=== PATIENT | female | born 1960 | race Caucasian/White ===

== ENCOUNTER 2016-12-07 11:13 | Emergency (ER) | payer OTHER ==
[2016-12-07 11:29] VITALS: O2SAT 96
--- NOTE | 2016-12-07 11:52 | ERPHSYRPT ---
- History of Present Illness Time Seen by Provider: 12/07/16 11:47 Source: patient Exam Limitations: no limitations Patient Subjective Stated Complaint: fell and injured right thumb Triage Nursing Assessment: ambulated to room per self, skin w/d, color normal, resp easy. obvious deformity of right thumb. skin warm, good cap refill Physician History: fell and injured right thumb just prior to arrival Occurred: just prior to arrival Method of Injury: fell Extremities Pain Location: thumb: right Modifying Factors: Improves With: nothing Associated Symptoms: none Allergies/Adverse Reactions: armodafinil [From Nuvigil] Allergy (Verified 06/14/16 10:41) azithromycin [From Zithromax] Allergy (Verified 06/14/16 10:41) throat closed-HEART PALPITATIONS codeine [Codeine] Allergy (Verified 06/14/16 10:41) throat closes-HEART PALPITATIONS iodine Allergy (Verified 06/14/16 10:41) Hives latex Allergy (Verified 06/14/16 10:41) hives during exam metronidazole [From Flagyl] Allergy (Verified 06/14/16 10:41) sob throat closes anaphalactic Metronidazole HCl [From Flagyl] Allergy (Verified 06/14/16 10:41) HEART PALPITATIONS Penicillins Allergy (Verified 06/14/16 10:41) "I DON'T KNOW" ziprasidone HCl [From Geodon] Allergy (Verified 06/14/16 10:41) hallucinate/confusion ziprasidone mesylate [From Geodon] Allergy (Verified 06/14/16 10:41) HEART PALPITATIONS hydrocodone Adverse Reaction (Verified 01/09/15 19:22) Heart palpitations adhesive tape Allergy (Uncoded 01/09/15 19:23) Rash Home Medications: Albuterol Common Canister [Proventil Common Canister] 2 puff IH Q4HPRN PRN 12/31/15 [History] Atorvastatin Calcium [Lipitor 40Mg] 40 mg PO QPM 12/31/15 [History] Cholecalciferol (Vitamin D3) [Vitamin D3] 3 tab PO DAILY 12/31/15 [History] Clonazepam [Klonopin] 2 mg PO QPM 12/31/15 [History] Cyclobenzaprine HCl 10 mg [Cyclobenzaprine 10 MG] 10 mg PO BID 12/31/15 [ History] Dextroamphetamine/Amphetamine [Adderall Xr 30 mg] 30 mg PO QAM 12/31/15 [History ] Docusate Sodium 100 mg [Colace 100 MG] 100 mg PO BID 12/31/15 [History] Fluticasone/Salmeterol [Advair 250-50 Diskus] 1 puff IH BID 12/31/15 [History] Furosemide 40 mg [Lasix 40 MG] 40 mg PO DAILY 12/31/15 [History] Lamotrigine [Lamictal] 300 mg PO QPM 12/31/15 [History] Levothyroxine Sodium [Synthroid] 1 tab PO QAM 12/31/15 [History] Linaclotide [Linzess] 145 mcg PO DAILY PRN PRN 12/31/15 [History] Liraglutide [Victoza 2-Jass] 1.8 mg SQ DAILY 12/31/15 [History] Multivitamin/Iron/Folic Acid [Centrum Complete Multivit Tab] 1 each PO QAM [History] Nitroglycerin 0.4 mg Tablet [Nitrostat 0.4 MG Tablet] 0.4 mg SL Q5MIN PRN MR X 3 PRN 12/31/15 [History] Omeprazole 1 tab PO DAILY 12/31/15 [History] Potassium Chloride 20 Meq [Klor-Con 20 MEQ] 20 meq PO BID 12/31/15 [History] Tiotropium [place] Inhaler [Spiriva 18 Mcg/Cap Inhaler] 1 puff IH DAILY [History] Vilazodone Hydrochloride [Viibryd] 40 mg PO DAILY 12/31/15 [History] Metoprolol Succinate 25 mg PO 5XD 06/14/16 [History] Trazodone HCl 200 mg PO HS 06/14/16 [History] Hx Tetanus, Diphtheria Vaccination/Date Given: Yes (less than 5 years) Hx Influenza Vaccination/Date Given: Yes Hx Pneumococcal Vaccination/Date Given: Yes - Review of Systems Constitutional: No Symptoms Eyes: No Symptoms Ears, Nose, & Throat: No Symptoms Respiratory: No Symptoms Cardiac: No Symptoms Abdominal/Gastrointestinal: No Symptoms Musculoskeletal: Deformity (right thumb), Joint Swelling - Past Medical History Pertinent Past Medical History: Yes Neurological History: Migraines ENT History: Cataracts Cardiac History: No Pertinent History, Other Respiratory History: Asthma, COPD Endocrine Medical History: Hypothyroidism Musculoskeletal History: Arthritis GI Medical History: GI Bleed, Hemorrhoids History: No Pertinent History Psycho-Social History: Bipolar Female Reproductive Disorders: Endometriosis Other Medical History: Tachycardia - Past Surgical History Past Surgical History: Yes Neuro Surgical History: No Pertinent History Cardiac: No Pertinent History, Cardiac Catheterization Respiratory: No Pertinent History Gastrointestinal: Cholecystectomy Genitourinary: No Pertinent History Musculoskeletal: Other Female Surgical History: Section, Hysterectomy Other Surgical History: thyroidectomy. L knee scope. 2 BLADDER SURGERYS left knee replacement - Social History Smoking Status: Current every day smoker How long have you smoked: 15 Exposure to second hand smoke: No Alcohol Use: Socially Drug Use: none Patient Lives Alone: No Significant Family History: no pertinent family hx - Female History Hx Now: No - Nursing Vital Signs Nursing Vital Signs: Initial Vital Signs Temperature 98.2 F Temperature Source Oral Pulse Rate 63 Respiratory Rate 16 Blood Pressure [Right Arm] 125/54 Pain Intensity 8 - Physical Exam General Appearance: no apparent distress Hand Exam: deformity (right middle thumb), limited ROM, soft tissue tenderness SpO2: 96 Oxygen Delivery: Room Air Procedures - Joint Reduction Timeout: Performed Joint Reduction Site: Right, 1st digit Conscious Sedation: No Reduction Attempts: 1 Pre-Procedure Neurovascular Exam: neurovascular intact Post Procedure Neurovascular Exam: neurovascular intact, good alignment Post Joint Reduction Film: no fracture seen - Course Nursing assessment & vital signs reviewed: Yes - Radiology Exams Hand X-ray Interpretation: Reviewed by me, Subluxation (middle interphalangeal joints ) Wrist X-ray Interpretation: Reviewed by me (subluxation reduced to normal,) Ordered Tests: Active Orders 24 hr Category Date Time Status HAND (MINIMUM 3 VIEWS) Stat Exams 12/07/16 11:30 Taken - Progress Progress: improved Counseled pt/family regarding: diagnosis, need for follow-up, rad results - Departure Time of Disposition: 11:51 Departure Disposition: Home Clinical Impression: Subluxation of right thumb Qualifiers: Encounter type: initial encounter Qualified Code(s): S63.101A - Unspecified subluxation of right thumb, initial encounter Condition: Good Critical Care Time: No Referrals: CIARA,MARLIN T. [Primary Care Provider] - Instructions: Finger Dislocation Additional Instructions: Please follow the instructions given to you. Please take your medication as prescribed if given. If symptoms recur or get worse, come back to the emergency room if you cannot reach your primary care physician, or call your primary care physician for an appointment. Again if your symptoms get worse, come back to the emergency room. Thanks for visiting emergency room, and let us take care of you.
[2016-12-07 12:09] VITALS: BP 120/66; PULSE 68
--- NOTE | 2016-12-07 20:03 | XRAY ---
Indication: Thumb pain following fall. Comparison: None 3 views of the right hand demonstrates first MCP dislocation with soft tissue swelling. No other bony, articular, or soft tissue abnormalities.
--- NOTE | 2016-12-07 20:03 | XRAY ---
Indication: Post reduction. Comparison: Taken earlier in the day. Single frontal view of the right hand demonstrate successful first MCP reduction. No other bony, articular, or soft tissue abnormalities.
== END 2016-12-07 12:09 | disposition home or self-care (01) ==
LOC: ED 11:13
PROC: 0RSWXZZ Reposition Right Finger Phalangeal Joint, External Approach (ICD-10-PCS; principal; 2016-12-07)
DX: S63.101A Unspecified subluxation of right thumb, initial encounter (principal); W19.XXXA Unspecified fall, initial encounter
CPT/HCPCS: 26770; 73130; 73140; 99283; 99284; L3908

== ENCOUNTER 2017-10-04 08:07 | Observation (INO) | payer OTHER ==
[2017-10-04] MEDS ORDERED: Lasix 20 MG/2 ML IV ONE (08:42)
--- NOTE | 2017-10-04 08:50 | ERPHSYRPT ---
- History of Present Illness Time Seen by Provider: 10/04/17 08:45 Source: patient Exam Limitations: no limitations Patient Subjective Stated Complaint: Pt states for the last several days she has been swelling all over. She has also had a sharp pain in the right arm. She has an intermittent sharp pain in the left ear. She also states she has been falling more frequently. She also has not been urinating. Last time she urinated was yesterday and she only peed once. Pt states she doesnt feel like she is tracking right, and she has been extremely tired all the time - like she "can't keep my eyes open". Pt complaining of right sided abdominal pain and left terrazas pain. She states she has been around a lot of chemicals and black mold this week. Triage Nursing Assessment: Pt alert and oriented x3. skin pink warm and dry. afebrile. 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 no bruising noted to left terrazas. right side abdomen tender to touch Physician History: mild to mod swelling hands and feet for 4 days, hx chf, feels unsteady for the last week, frequent falling, pain left lower leg and right forearm, +dyspnea on exertion, no chest pain, pt refused pain med, hx smoking Allergies/Adverse Reactions: armodafinil [From Nuvigil] Allergy (Verified 06/14/16 10:41) azithromycin [From Zithromax] Allergy (Verified 06/14/16 10:41) throat closed-HEART PALPITATIONS latex Allergy (Verified 06/14/16 10:41) hives during exam metronidazole [From Flagyl] Allergy (Verified 06/14/16 10:41) sob throat closes anaphalactic Metronidazole HCl [From Flagyl] Allergy (Verified 06/14/16 10:41) HEART PALPITATIONS Penicillins Allergy (Verified 06/14/16 10:41) "I DON'T KNOW" ziprasidone HCl [From Geodon] Allergy (Verified 06/14/16 10:41) hallucinate/confusion ziprasidone mesylate [From Geodon] Allergy (Verified 06/14/16 10:41) HEART PALPITATIONS adhesive tape Allergy (Uncoded 01/09/15 19:23) Rash Home Medications: Atorvastatin Calcium [Lipitor 40Mg] 40 mg PO QPM 12/31/15 [History] Clonazepam [Klonopin] 2 mg PO QPM 12/31/15 [History] Docusate Sodium 100 mg [Colace 100 MG] 100 mg PO BID 12/31/15 [History] Fluticasone/Salmeterol [Advair 250-50 Diskus] 1 puff IH BID 12/31/15 [History] Lamotrigine [Lamictal] 300 mg PO QPM 12/31/15 [History] Levothyroxine Sodium [Synthroid] 1 tab PO QAM 12/31/15 [History] Multivitamin/Iron/Folic Acid [Centrum Complete Multivit Tab] 1 each PO QAM [History] Tiotropium [place] Inhaler [Spiriva 18 Mcg/Cap Inhaler] 1 puff IH DAILY [History] Vilazodone Hydrochloride [Viibryd] 40 mg PO DAILY 12/31/15 [History] Trazodone HCl 200 mg PO HS 06/14/16 [History] Aspirin EC 325 mg [Ecotrin 325 MG] 325 mg PO DAILY 10/04/17 [History] Dextroamphetamine/Amphetamine [Adderall 20 mg Tablet] 20 mg PO BID 10/04/17 [ History] Dulaglutide [Trulicity] 1.5 mg SQ WEEKLY 10/04/17 [History] Lisinopril 5 mg [Zestril 5 MG] 5 mg PO QAM 10/04/17 [History] Loratadine 10 mg [Claritin 10 mg] 10 mg PO QAM 10/04/17 [History] Prazosin HCl 5 mg PO QPM 10/04/17 [History] Ranitidine HCl 300 mg PO QPM 10/04/17 [History] Valacyclovir HCl [Valacyclovir] 2,000 mg PO UD 10/04/17 [History] Hx Tetanus, Diphtheria Vaccination/Date Given: Yes Hx Influenza Vaccination/Date Given: No Hx Pneumococcal Vaccination/Date Given: Yes - Review of Systems Constitutional: Fatigue, No Fever Eyes: No Symptoms Ears, Nose, & Throat: Ear Pain, No Ear Discharge, No Hearing Changes Respiratory: Dyspnea on Exertion (ROSEN), No Wheezing Cardiac: No Symptoms Abdominal/Gastrointestinal: Abdominal Pain, No Vomiting Genitourinary Symptoms: No Dysuria Musculoskeletal: Fall, No Back Pain, No Neck Pain, No Deformity, No Joint Redness Skin: No Rash Neurological: No Dizziness, No Focal Weakness, No Headache, No Speech Changes Psychological: No Symptoms - Past Medical History Pertinent Past Medical History: Yes Neurological History: Migraines ENT History: Cataracts Cardiac History: Congestive Heart Failure, Myocardial Infarction ([place]), Other Respiratory History: Asthma, COPD Endocrine Medical History: Hypothyroidism Musculoskeletal History: Arthritis GI Medical History: Hemorrhoids History: No Pertinent History Psycho-Social History: Bipolar Female Reproductive Disorders: Endometriosis Other Medical History: Tachycardia - Past Surgical History Past Surgical History: Yes Neuro Surgical History: No Pertinent History Cardiac: Cardiac Catheterization Respiratory: No Pertinent History Gastrointestinal: Cholecystectomy Genitourinary: No Pertinent History Musculoskeletal: Other Female Surgical History: Section, Hysterectomy Other Surgical History: thyroidectomy. L knee scope. 2 BLADDER SURGERYS left knee replacement - Social History Smoking Status: Current every day smoker How long have you smoked: 15 Exposure to second hand smoke: No Alcohol Use: Socially Drug Use: none Patient Lives Alone: Yes Significant Family History: no pertinent family hx - Female History Hx Now: No - Nursing Vital Signs Nursing Vital Signs: Initial Vital Signs Temperature 97.6 F 10/04/17 08:17 Pulse Rate 78 10/04/17 08:17 Respiratory Rate 16 10/04/17 08:17 Blood Pressure 134/72 10/04/17 08:17 O2 Sat by Pulse Oximetry 96 10/04/17 08:17 Pain Scale Pain Intensity 7 - Physical Exam General Appearance: no apparent distress Eye Exam: PERRL/EOMI Ears, Nose, Throat Exam: TMs normal, pharynx normal Neck Exam: normal inspection Respiratory Exam: lungs clear Cardiovascular Exam: regular rate/rhythm Gastrointestinal/Abdomen Exam: soft, tenderness, No distention, No rebound Back Exam: No vertebral tenderness Extremity Exam: pelvis stable, swelling, No deformities Neurologic Exam: alert, oriented x 3, cooperative, other (cn 3 to 10 grossly intact) Skin Exam: warm, dry SpO2 Interpretation: normal SpO2: 96 Oxygen Delivery: Room Air - Course Nursing assessment & vital signs reviewed: Yes EKG Interpreted by Me: Other (nsr 74, no stemi) - Radiology Exams Chest X-ray Interpretation: Interpreted by me, Other (no gross failure) Forearm X-ray Interpretation: Interpreted by me, No Fracture Lower Leg X-ray Interpretation: Interpreted by me, No Fracture - CT Exams Head CT Interpretation: Negative, Discussed w/radiologist Abdomen/Pelvis CT Interpretation: Negative, Discussed w/radiologist Ordered Tests: Active Orders 24 hr Category Date Time Status Clean Catch Urine Specimen STAT Care 10/04/17 12:06 Active EKG-ER Only STAT Care 10/04/17 08:40 Active IV Insertion STAT Care 10/04/17 08:40 Active Orthostatic Vital Signs STAT Care 10/04/17 10:48 Active ABDOMEN AND PELVIS W/0 CONTRAS [CT] Stat Exams 10/04/17 08:52 Taken CHEST 2 VIEWS (PA AND LAT) Stat Exams 10/04/17 08:40 Taken FOREARM Stat Exams 10/04/17 Taken HEAD WITHOUT CONTRAST [CT] Stat Exams 10/04/17 08:43 Taken LOWER LEG Stat Exams 10/04/17 Taken CBC W DIFF Stat Lab 10/04/17 09:00 Completed CK-Creatinine Phosphokinase Stat Lab 10/04/17 09:00 Completed CMP Stat Lab 10/04/17 09:00 Completed NT PRO BNP Stat Lab 10/04/17 09:00 Completed TROPONIN Q3H Lab 10/04/17 09:00 Completed TROPONIN Q3H Lab 10/04/17 11:35 Completed TROPONIN Q3H Lab 10/04/17 14:45 Ordered TROPONIN Q3H Lab 10/04/17 17:45 Ordered TROPONIN Q3H Lab 10/04/17 20:45 Ordered UA W/RFX UR CULTURE Stat Lab 10/04/17 09:15 Completed Urine Triage Profile Stat Lab 10/04/17 09:15 Completed Medication Summary Generic Name Dose Route Start Last Admin Trade Name Freq PRN Reason Stop Dose Admin Acetaminophen 1,000 mg 10/04/17 12:01 10/04/17 12:14 Tylenol Extra Strength 500 Mg PO 11/03/17 12:00 1,000 mg Q4H PRN PRN Administration HEADACHE Discontinued Medications Generic Name Dose Route Start Last Admin Trade Name Freq PRN Reason Stop Dose Admin Furosemide 20 mg 10/04/17 08:42 10/04/17 08:58 Lasix 20 Mg/2 Ml IV 10/04/17 08:43 Not Given DAILY ONE Furosemide 20 mg 10/04/17 08:57 10/04/17 09:01 Lasix 40 Mg/4 Ml IV 10/04/17 08:58 20 mg STAT ONE Administration Furosemide Confirm 10/04/17 08:56 Lasix 40 Mg/4 Ml Administered 10/04/17 08:57 Dose 40 mg .ROUTE .STK-MED ONE Sodium Chloride 500 mls @ 999 mls/hr 10/04/17 11:04 10/04/17 11:26 Sodium Chloride 0.9% 1000 Ml IV 10/04/17 11:34 999 mls/hr .Q31M STA Administration Sodium Chloride Confirm 10/04/17 11:23 Sodium Chloride 0.9% 1000 Ml Administered 10/04/17 11:24 Dose 1,000 mls @ ud .ROUTE .STK-MED ONE Potassium Chloride 20 meq 10/04/17 09:51 10/04/17 10:15 Klor Con 10 Meq PO 10/04/17 09:52 20 meq STAT ONE Administration Potassium Chloride Confirm 10/04/17 10:13 Klor Con 10 Meq Administered 10/04/17 10:14 Dose 20 meq PO .STK-MED ONE Lab/Rad Data: Laboratory Result Diagrams 10/04/17 09:00 10/04/17 09:00 Laboratory Results 10/04/17 10/04/17 10/04/17 Range/Units 11:35 09:15 09:15 WBC (4.0-10.5) K/mm3 RBC (4.1-5.4) M/mm3 Hgb (12.0-16.0) gm/dl Hct (35-47) % MCV (78-100) fl MCH (26-32) pg MCHC (32-36) g/dl RDW (11.5-14.0) % Plt Count (150-450) K/mm3 MPV (6-9.5) fl Gran % (36.0-66.0) % Lymphocytes % (24.0-44.0) % Monocytes % (0.0-12.0) % Eosinophils % (0.00-5.0) % Basophils % (0.0-0.4) % Basophils # (0-0.4) Sodium (136-145) mEq/L Potassium (3.5-5.1) mEq/L Chloride (98-107) mEq/L Carbon Dioxide (21-32) mEq/L Anion Gap (5-15) MEQ/L BUN (9-20) mg/dL Creatinine (0.55-1.30) mg/dl Estimated GFR ML/MIN Glucose (70-110) MG/DL Calcium (8.5-10.1) mg/dL Total Bilirubin (0.2-1.0) mg/dL AST (15-37) U/L ALT (12-78) U/L Alkaline Phosphatase (46-116) U/L Creatine Kinase (26-192) U/L Troponin I < 0.017 (0.000-0.056) ng/ml NT-Pro-B Natriuret Pep (0-125) pg/ml Serum Total Protein (6.4-8.2) gm/dL Albumin (3.4-5.0) g/dL Ur Collection Type VOID Urine Color YELLOW (YELLOW) Urine Appearance CLEAR (CLEAR) Urine pH 5.0 (5-6) Ur Specific [place] 1.010 (1.005-1.025) Urine Protein NEGATIVE (Negative) Urine Ketones NEGATIVE (NEGATIVE) Urine Blood NEGATIVE (0-5) Sung/ul Urine Nitrite NEGATIVE (NEGATIVE) Urine Bilirubin NEGATIVE (NEGATIVE) Urine Urobilinogen NORMAL (0-1) mg/dL Ur Leukocyte Esterase NEGATIVE (NEGATIVE) Urine Culture Reflexed NO (NO) Urine Glucose NEGATIVE (NEGATIVE) mg/dL Urine Opiates Level NEG. (NEGATIVE) Ur Methadone NEG. (NEGATIVE) Urine Barbiturates NEG. (NEGATIVE) Ur Phencyclidine (PCP) NEG. (NEGATIVE) Urine Amphetamine POS. (NEGATIVE) U Benzodiazepine Level NEG. (NEGATIVE) Urine Cocaine NEG. (NEGATIVE) Urine Marijuana (THC) NEG. (NEGATIVE) Specimen Received 10/04/1791410/04/17 10/04/17 10/04/17 Range/Units 09:00 09:00 09:00 WBC 6.0 (4.0-10.5) K/mm3 RBC 4.17 (4.1-5.4) M/mm3 Hgb 11.9 L (12.0-16.0) gm/dl Hct 37.6 (35-47) % MCV 90.2 (78-100) fl MCH 28.5 (26-32) pg MCHC 31.6 L (32-36) g/dl RDW 14.7 H (11.5-14.0) % Plt Count 204 (150-450) K/mm3 MPV 10.4 H (6-9.5) fl Gran % 45.8 (36.0-66.0) % Lymphocytes % 40.5 (24.0-44.0) % Monocytes % 10.8 (0.0-12.0) % Eosinophils % 2.2 (0.00-5.0) % Basophils % 0.7 (0.0-0.4) % Basophils # 0.04 (0-0.4) Sodium 144 (136-145) mEq/L Potassium 3.2 L (3.5-5.1) mEq/L Chloride 108 H (98-107) mEq/L Carbon Dioxide 24.2 (21-32) mEq/L Anion Gap 15.1 H (5-15) MEQ/L BUN 16 (9-20) mg/dL Creatinine 1.03 (0.55-1.30) mg/dl Estimated GFR 59 ML/MIN Glucose 115 H (70-110) MG/DL Calcium 8.4 L (8.5-10.1) mg/dL Total Bilirubin 0.20 (0.2-1.0) mg/dL AST 24 (15-37) U/L ALT 24 (12-78) U/L Alkaline Phosphatase 86 (46-116) U/L Creatine Kinase 154 (26-192) U/L Troponin I < 0.017 (0.000-0.056) ng/ml NT-Pro-B Natriuret Pep 238 H (0-125) pg/ml Serum Total Protein 6.4 (6.4-8.2) gm/dL Albumin 3.2 L (3.4-5.0) g/dL Ur Collection Type Urine Color (YELLOW) Urine Appearance (CLEAR) Urine pH (5-6) Ur Specific [place] (1.005-1.025) Urine Protein (Negative) Urine Ketones (NEGATIVE) Urine Blood (0-5) Sung/ul Urine Nitrite (NEGATIVE) Urine Bilirubin (NEGATIVE) Urine Urobilinogen (0-1) mg/dL Ur Leukocyte Esterase (NEGATIVE) Urine Culture Reflexed (NO) Urine Glucose (NEGATIVE) mg/dL Urine Opiates Level (NEGATIVE) Ur Methadone (NEGATIVE) Urine Barbiturates (NEGATIVE) Ur Phencyclidine (PCP) (NEGATIVE) Urine Amphetamine (NEGATIVE) U Benzodiazepine Level (NEGATIVE) Urine Cocaine (NEGATIVE) Urine Marijuana (THC) (NEGATIVE) Specimen Received - Progress Progress: improved Progress Note: 10/04/17 13:11 treatment and disposition d/w Dr Collier Discussed with : Nando Will see patient in: hospital (observation) Counseled pt/family regarding: lab results, diagnosis, rad results - Departure Time of Disposition: 13:10 Departure Disposition: Observation Clinical Impression: Hypokalemia, Unsteadiness CHF (congestive heart failure) Qualifiers: Congestive heart failure type: unspecified congestive heart failure type Congestive heart failure chronicity: acute on chronic Qualified Code(s): I50.9 - Heart failure, unspecified Condition: Stable Critical Care Time: No Referrals: MARLIN URBINA [Primary Care Provider] - Instructions: Heart Failure
[2017-10-04] MEDS ORDERED: Lasix 40 MG/4 ML ONE (08:56)
[2017-10-04] MEDS ORDERED: Lasix 40 MG/4 ML IV ONE (08:57)
[2017-10-04 09:08] LABS: BASOPHIL % 0.7 % (0.0-0.4); Eosinophil % 2.2 % (0.00-5.0); Granulocytes % 45.8 % (36.0-66.0); Lymphocytes % 40.5 % (24.0-44.0); Mean Cell Volume 90.2 fl (78-100); Mean Corpuscular Hemoglobin 28.5 pg (26-32); Mean Platelet Volume 10.4 fl (6-9.5); Monocytes % 10.8 % (0.0-12.0); Platelet Count 204 K/mm3 (150-450); Red Blood Count 4.17 M/mm3 (4.1-5.4); Red Cell Distribution Width 14.7 % (11.5-14.0)
[2017-10-04 09:21] LABS: ADD URINE CULTURE? NO (NO); Bilirubin NEGATIVE (NEGATIVE); Blood NEGATIVE Ery/ul (0-5); COMPLETE URINE MICROSCOPIC? NO; Collection Type VOID; Glucose NEGATIVE (NEGATIVE); Leukocyte Esterase NEGATIVE (NEGATIVE)
[2017-10-04 09:45] LABS: ALBUMIN 3.2 g/dL (3.4-5.0); ANION GAP 15.1 MEQ/L (5-15); BILIRUBIN,TOTAL 0.2 mg/dL (0.2-1.0); Carbon Dioxide 24.2 mEq/L (21-32); Potassium 3.2 mEq/L (3.5-5.1); Total Protein 6.4 gm/dL (6.4-8.2)
[2017-10-04] MEDS ORDERED: Klor Con 10 MEQ PO ONE ×2 (09:51→10:13)
[2017-10-04] MEDS ORDERED: Sodium Chloride 0.9% 1000 ML 1,000 ML ONE (11:23)
[2017-10-04] MEDS ORDERED: TYLENOL EXTRA STRENGTH 500 MG PO PRN (12:01)
[2017-10-04] MEDS ORDERED: TYLENOL EXTRA STRENGTH 500 MG ONE (12:11)
[2017-10-04 14:56] LABS: Potassium 3.5 mEq/L (3.5-5.1)
[2017-10-04 15:01] LABS: TROPONIN < 0.017 ng/ml (0.000-0.056)
[2017-10-04] MEDS ORDERED: NORCO 5/325 MG PO PRN (15:33)
--- NOTE | 2017-10-04 16:08 | PCM.HP ---
History of Present Illness - Chief Complaint Chief Complaint: hypokalemic, chr, unsteady gait History of Present Illness: is a 56 year old female pt of Dr. Cooper (sees Christa Davis) with hx CHF who came to ER due to 1 week of increased R hand pain, "the worse pain I've ever had." She describes it as burning pain, encompassing the entire hand. She spent time last week helping a friend with painting and cleaning. She has been casted for a significant portion of the past year due to injury of the hand and subsequent surgery by Dr. Gan. She just had an EMG on Thursday (2 d ago). In the ER she c/o generalized edema, had a mildly elevated BNP and was given lasix IV; the edema improved then she was hypotensive and orthostatic. She was given a small bolus of IV fluids and her BP improved but her R hand pain worsened. On ROS she admits to substernal chest pain, sharp, not related to activity, radiating to her back. She has had many musculoskeletal issues including a knee replacement (Dr. Kee). She has had frequent falls that she attributes to loss of balance due to knee issues. There have been more falls in the past 1 week. - Review of Systems Respiratory: Cough Cardiac: Chest Pain, Edema Abdominal/Gastrointestinal: Abdominal Pain (lower abdominal "bruised feeling"), Diarrhea, Constipation (chronic alternating diarrhea/constipation; has Linzesse to take prn) Musculoskeletal: Arthralgias, Joint Pain, Joint Swelling Psychological: No Anxiety, No Depression (does have hx bipolar), No Suicidal Ideations, No Homicidal Ideations All Other Systems: Reviewed and Negative Medications & Allergies Home Medications: Home Medication List Atorvastatin Calcium [Lipitor 40Mg] 40 mg PO QPM 12/31/15 [History Confirmed 01/16] Clonazepam [Klonopin] 2 mg PO QPM 12/31/15 [History Confirmed 10/04/17] Docusate Sodium 100 mg [Colace 100 MG] 200 mg PO BID 12/31/15 [History Confirmed 10/04/17] Fluticasone/Salmeterol [Advair 250-50 Diskus] 1 puff IH BID 12/31/15 [History Confirmed 10/04/17] Lamotrigine [Lamictal] 300 mg PO QPM 12/31/15 [History Confirmed 10/04/17] Levothyroxine Sodium [Synthroid] 1 tab PO QAM 12/31/15 [History Confirmed ] Multivitamin/Iron/Folic Acid [Centrum Complete Multivit Tab] 1 each PO QAM [History Confirmed 10/04/17] Tiotropium [place] Inhaler [Spiriva 18 Mcg/Cap Inhaler] 1 puff IH DAILY [History Confirmed 10/04/17] Vilazodone Hydrochloride [Viibryd] 40 mg PO DAILY 12/31/15 [History Confirmed ] Trazodone HCl 200 mg PO HS 06/14/16 [History Confirmed 10/04/17] Aspirin EC 325 mg [Ecotrin 325 MG] 325 mg PO DAILY 10/04/17 [History Confirmed 10/04/17] Dextroamphetamine/Amphetamine [Adderall 20 mg Tablet] 40 mg PO BID 10/04/17 [ History Confirmed 10/04/17] Dulaglutide [Trulicity] 1.5 mg SQ WEEKLY 10/04/17 [History Confirmed 10/04/17] Lisinopril 5 mg [Zestril 5 MG] 5 mg PO QAM 10/04/17 [History Confirmed 01/16] Loratadine 10 mg [Claritin 10 mg] 10 mg PO QAM 10/04/17 [History Confirmed 10/04/17] Prazosin HCl 5 mg PO QPM 10/04/17 [History Confirmed 10/04/17] Ranitidine HCl 300 mg PO QPM 10/04/17 [History Confirmed 10/04/17] Valacyclovir HCl [Valacyclovir] 2,000 mg PO UD 10/04/17 [History Confirmed 10/04] Allergies/Adverse Reactions: Allergies Allergy/AdvReac Type Severity Reaction Status Date / Time armodafinil [From Nuvigil] Allergy Verified 06/14/16 10:41 azithromycin [From Zithromax] Allergy throat Verified 06/14/16 10:41 closed-HEART PALPITATIONS latex Allergy hives Verified 06/14/16 10:41 during exam metronidazole [From Flagyl] Allergy sob throat Verified 06/14/16 10:41 closes anaphalactic Metronidazole HCl Allergy HEART Verified 06/14/16 10:41 [From Flagyl] PALPITATIONS Penicillins Allergy "I DON'T Verified 06/14/16 10:41 KNOW" ziprasidone HCl [From Geodon] Allergy hallucinate Verified 06/14/16 10:41 /confusion ziprasidone mesylate Allergy HEART Verified 06/14/16 10:41 [From Geodon] PALPITATIONS adhesive tape Allergy Rash Uncoded 01/09/15 19:23 - Past Medical History Past Medical History: Yes Neurological History: Migraines ENT History: Cataracts Cardiac History: Congestive Heart Failure, Myocardial Infarction (PA), Other Respiratory History: Asthma, COPD Endocrine Medical History: Hypothyroidism Musculoskelatal History: Arthritis GI Medical History: Hemorrhoids History: No Pertinent History Pyscho-Social History: Bipolar Reproductive Disorders: Endometriosis Comment: Tachycardia - Female History Are you now?: No - Past Surgical History Past Surgical History: Yes Neuro Surgical History: No Pertinent History Cardiac History: Cardiac Catheterization Respiratory Surgery: No Pertinent History GI Surgical History: Cholecystectomy Genitourinary Surgical Hx: No Pertinent History Musculskeletal Surgical Hx: Other Female Surgical History: Section, Hysterectomy Other Surgical History: thyroidectomy. L knee scope. 2 BLADDER SURGERYS left knee replacement - Social History Smoking Status: Current every day smoker How long have you smoked: 29 Exposure to second hand smoke: Yes Alcohol: None Drug Use: none Significant Family History: no pertinent family hx - Physical Exam Vital Signs: Vital Signs - 24 hr Temp Pulse Resp BP Pulse Ox 10/04/17 14:04 98.2 F 69 20 127/65 93 L 10/04/17 13:53 98.2 F 69 127/65 10/04/17 13:12 96 10/04/17 11:58 68 20 95/68 95 10/04/17 11:08 77 102/53 97 10/04/17 10:12 72 16 121/61 96 10/04/17 09:10 73 16 111/52 93 L 10/04/17 08:17 97.6 F 78 16 134/72 96 General Appearance: no apparent distress, alert Neurologic Exam: oriented x 3, cooperative Eye Exam: eyes nml inspection Neck Exam: normal inspection, non-tender, No lymphadenopathy Respiratory Exam: normal breath sounds, lungs clear, No crackles/rales, No rhonchi, No wheezing Cardiovascular Exam: regular rate/rhythm, normal heart sounds, No murmur Gastrointestinal/Abdomen Exam: soft, normal bowel sounds, No tenderness, No distention, No mass, No guarding, No rebound Back Exam: normal inspection, No CVA tenderness Extremity Exam: other (RUE with no appreciable edema. No erythema/lesions. radial pulse +. skin warm.) Skin Exam: normal color, warm, dry Results - Labs Lab/Micro Results: Lab Results-Last 24 Hours 10/04/17 Range/Units 14:31 Potassium 3.5 (3.5-5.1) mEq/L Troponin I < 0.017 (0.000-0.056) ng/ml - Other Procedures and Tests Respiratory Therapy 10/04/17 14:34 RT Screen per Nursing Assess ONCE Assessment/Plan (1) Hand pain, right Current Visit: Yes Status: Acute Assessment & Plan: This was her main reason for coming to the ER. Her preliminary result (verbal report) of the EMG is positive for nerve impingement. I will start her on some neurontin. Burt 5/325 prn. Try HCTZ if her bp will warrant it as any extra fluid appears to exacerbate her pain. Code(s): M79.641 - PAIN IN RIGHT HAND (2) Chest pain Current Visit: Yes Status: Acute Qualifiers: Chest pain type: unspecified Qualified Code(s): R07.9 - Chest pain, unspecified Assessment & Plan: will rule out PA. Pt sees Dr. hyman. Code(s): R07.9 - CHEST PAIN, UNSPECIFIED (3) Hypotension Current Visit: Yes Status: Acute Qualifiers: Hypotension type: orthostatic hypotension Qualified Code(s): I95.1 - Orthostatic hypotension Assessment & Plan: Could be a chronic issue with her frequent falls. Code(s): I95.9 - HYPOTENSION, UNSPECIFIED (4) CHF (congestive heart failure) Current Visit: Yes Status: Acute Qualifiers: Congestive heart failure type: unspecified congestive heart failure type Congestive heart failure chronicity: acute on chronic Qualified Code(s): I50.9 - Heart failure, unspecified Assessment & Plan: The BNP was not impressively elevated, just mild. She states her swelling is much better than it was on admission. Code(s): I50.9 - HEART FAILURE, UNSPECIFIED (5) Unsteadiness Current Visit: Yes Status: Acute Assessment & Plan: PT to evaluate in the morning. Code(s): R26.81 - UNSTEADINESS ON FEET
[2017-10-04] MEDS ORDERED: Colace 100 MG PO PRN (16:12)
[2017-10-04] MEDS ORDERED: VALACYCLOVIR HCL 2000 MG PO SCH (16:15)
[2017-10-04] MEDS ORDERED: Spiriva 18 Mcg/Cap Inhaler IH SCH (16:30)
[2017-10-04] MEDS ORDERED: MEDICATION INTERVENTION MC PRN ×2 (16:32→16:40)
[2017-10-04] MEDS ORDERED: PROVENTIL COMMON CANISTER IH PRN (16:37)
[2017-10-04] MEDS ORDERED: ZOVIRAX 200 MG PO PRN (16:37)
[2017-10-04] MEDS: Neurontin 100 MG PO SCH ×2 (16:58→21:38)
[2017-10-04] MEDS: SYNTHROID 100 MCG PO SCH (16:58)
[2017-10-04] MEDS ORDERED: Advair Hfa 115/21 Common canister IH SCH (19:00)
--- NOTE | 2017-10-04 19:22 | XRAY ---
Indication: Right abdominal pain. Indigestion. Frequent falls. Multiple contiguous axial images obtained through the abdomen and pelvis without contrast as ordered. Comparison: December 31, 2015. Lung bases clear. Noncontrasted stomach and bowel loops appear nonobstructed. Normal appendix. Again previous cholecystectomy and hysterectomy. No free fluid/air. Remaining liver, pancreas, spleen, adrenal glands, kidneys, ureters, bladder, and aorta appear unremarkable for noncontrast exam. Osseous structures intact. Impression: CT abdomen/pelvis without contrast exam is again negative. Comment: Preliminary interpretation was made by [facility]. No discrepancy. CTDI 23.69
--- NOTE | 2017-10-04 19:25 | XRAY ---
Indication: Patient feels disoriented. Headache. Frequent falls. Multiple contiguous axial images obtained through the head without contrast. Comparison: May 18, 2006. Normal appearing brain parenchyma, ventricles, and bony calvarium. Visualized paranasal sinuses and mastoid air cells are clear. Impression: Normal CT head without contrast exam. Comment: Preliminary interpretation was made by [facility]. No discrepancy. CTDI 50.75
--- NOTE | 2017-10-04 19:26 | XRAY ---
Indication: Frequent falls. Comparison: None 2 views of the left lower leg demonstrates total knee arthroplasty with intact articulation and prosthesis. No other bony, articular, or soft tissue abnormalities.
--- NOTE | 2017-10-04 19:26 | XRAY ---
Indication: Dyspnea. Comparison: November 06, 2014. PA/lateral chest demonstrates minimal right middle lobe fibrosis/scarring. Remaining heart and lungs normal. Bony thorax intact. No new/acute findings. Impression: Nonacute chest.
--- NOTE | 2017-10-04 19:36 | XRAY ---
Indication: Frequent falls. Comparison: None 2 views of the right forearm obtained. No bony, articular, or soft tissue abnormalities.
[2017-10-04] MEDS ORDERED: DESYREL 50 MG PO SCH (22:00)
[2017-10-04] MEDS ORDERED: ADVAIR 250-50 DISKUS 14 DOSE IH SCH (22:00)
[2017-10-04] MEDS ORDERED: Desyrel 150 MG PO SCH (22:00)
[2017-10-04] MEDS ORDERED: LIPITOR 40MG PO SCH (22:00)
[2017-10-04] MEDS ORDERED: lamICTAL 100MG TABLET PO SCH (22:00)
[2017-10-04] MEDS ORDERED: Pepcid 20 MG PO SCH (22:00)
[2017-10-04] MEDS ORDERED: PRAZOSIN HCL 5 MG PO SCH (22:00)
[2017-10-04] MEDS ORDERED: TRAZODONE HCL 200 MG PO SCH (22:00)
[2017-10-04] MEDS ORDERED: NON-FORMULARY ITEM (Ranitidine Hcl [Ranitidine Hcl] 300 MG) PO SCH (22:00)
[2017-10-04] MEDS ORDERED: KLONOPIN PO SCH (22:00)
[2017-10-05 06:26] LABS: Mean Platelet Volume 10.7 fl (6-9.5); Platelet Count 204 K/mm3 (150-450); Red Blood Count 4.13 M/mm3 (4.1-5.4); Red Cell Distribution Width 14.7 % (11.5-14.0); White Blood Count 5.9 K/mm3 (4.0-10.5)
[2017-10-05 06:49] LABS: ANION GAP 12.4 MEQ/L (5-15); BLOOD UREA NITROGEN 12 mg/dL (9-20); CHLORIDE 110 mEq/L (98-107); Carbon Dioxide 25.5 mEq/L (21-32); Glucose 104 MG/DL (70-110); Potassium 3.5 mEq/L (3.5-5.1); SODIUM 144 mEq/L (136-145)
--- NOTE | 2017-10-05 08:43 | PCM.DS ---
Discharge Summary Date of Admission: 10/04/17 13:51 Admitting Physician: MARLIN URBINA Primary Care Provider: MARLIN URBINA Allergies Allergies armodafinil [From Nuvigil] Allergy (Verified 06/14/16 10:41) azithromycin [From Zithromax] Allergy (Verified 06/14/16 10:41) throat closed-HEART PALPITATIONS latex Allergy (Verified 06/14/16 10:41) hives during exam metronidazole [From Flagyl] Allergy (Verified 06/14/16 10:41) sob throat closes anaphalactic Metronidazole HCl [From Flagyl] Allergy (Verified 06/14/16 10:41) HEART PALPITATIONS Penicillins Allergy (Verified 06/14/16 10:41) "I DON'T KNOW" ziprasidone HCl [From Geodon] Allergy (Verified 06/14/16 10:41) hallucinate/confusion ziprasidone mesylate [From Geodon] Allergy (Verified 06/14/16 10:41) HEART PALPITATIONS adhesive tape Allergy (Uncoded 01/09/15 19:23) Rash Hospital Summary - Hospital Course Hospital Course: Her hand is feeling better. She's unsure if it's the neurontin. Has some sore throat and cough this morning. Slept well overnight. Noticed if her elbow is bent her hand pain is much worse. No chest pain. Overnight pulse ox with 24.3% < 90% - she states she has narcolepsy and sees Dr. Crespo. - Vitals & Intake/Output Vital Signs: Vital Signs Temperature 97.7 F 10/05/17 06:54 Pulse Rate 62 10/05/17 06:54 Respiratory Rate 20 10/05/17 06:54 Blood Pressure 118/64 10/05/17 06:54 O2 Sat by Pulse Oximetry 95 10/05/17 06:54 Intake & Output: Intake & Output 10/02/17 10/03/17 10/04/17 10/05/17 11:59 11:59 11:59 11:59 Intake Total 1580 Balance 1580 Weight 100.335 kg - Lab Result Diagrams: 10/05/17 05:24 10/05/17 05:24 Lab Results-Last 24 Hrs: Lab Results-Last 24 Hours 10/04/17 10/04/17 10/04/17 Range/Units 14:31 18:11 21:01 WBC (4.0-10.5) K/mm3 RBC (4.1-5.4) M/mm3 Hgb (12.0-16.0) gm/dl Hct (35-47) % MCV (78-100) fl MCH (26-32) pg MCHC (32-36) g/dl RDW (11.5-14.0) % Plt Count (150-450) K/mm3 MPV (6-9.5) fl Sodium (136-145) mEq/L Potassium 3.5 (3.5-5.1) mEq/L Chloride (98-107) mEq/L Carbon Dioxide (21-32) mEq/L Anion Gap (5-15) MEQ/L BUN (9-20) mg/dL Creatinine (0.55-1.30) mg/dl Estimated GFR ML/MIN Glucose (70-110) MG/DL Calcium (8.5-10.1) mg/dL Troponin I < 0.017 < 0.017 < 0.017 (0.000-0.056) ng/ml NT-Pro-B Natriuret Pep (0-125) pg/ml 10/05/17 10/05/17 Range/Units 05:24 05:24 WBC 5.9 (4.0-10.5) K/mm3 RBC 4.13 (4.1-5.4) M/mm3 Hgb 11.6 L (12.0-16.0) gm/dl Hct 37.6 (35-47) % MCV 91.0 (78-100) fl MCH 28.0 (26-32) pg MCHC 30.9 L (32-36) g/dl RDW 14.7 H (11.5-14.0) % Plt Count 204 (150-450) K/mm3 MPV 10.7 H (6-9.5) fl Sodium 144 (136-145) mEq/L Potassium 3.5 (3.5-5.1) mEq/L Chloride 110 H (98-107) mEq/L Carbon Dioxide 25.5 (21-32) mEq/L Anion Gap 12.4 (5-15) MEQ/L BUN 12 (9-20) mg/dL Creatinine 0.92 (0.55-1.30) mg/dl Estimated GFR > 60 ML/MIN Glucose 104 (70-110) MG/DL Calcium 8.1 L (8.5-10.1) mg/dL Troponin I (0.000-0.056) ng/ml NT-Pro-B Natriuret Pep 493 H (0-125) pg/ml - Procedures and Test Procedures and Tests throughout Hospitalization: Therapy Orders & Screens 10/04/17 14:34 RT Screen per Nursing Assess ONCE Comment: Protocol Order Physician Instructions: Greater than 3 points order RT Admission Screen Reason For Exam: Triggered on Admission Diagnosis: hypokalemic, chr, unsteady gait Diagnosis: hypokalemic, chr, unsteady gait Pneumonia: No Home O2: No Asthma: Yes CHF: Yes Home CPAP/BIPAP: No Home Nebs/MDI: Yes Total Points: 12 Smoking Cessation Education ONCE Comment: Diagnosis: hypokalemic, chr, unsteady gait Smoking Status: Current every day smoker How long have you smoked: 29 Have you smoked in the past 12 months: No Approximately how many cigarettes per day: LESS THAN PACK ADAY Do you dip or chew tobacco: No If,Former Smoker,when did you quit: quit in 10/04/17 16:37 Respiratory MDI PRN Comment: Diagnosis: hypokalemic, chr, unsteady gait 10/04/17 16:39 Respiratory MDI BID Comment: Diagnosis: hypokalemic, chr, unsteady gait Discharge Exam General Appearance: no apparent distress, alert Neurologic Exam: oriented x 3, cooperative Skin Exam: normal color, warm, dry, No rash Ears, Nose, Throat Exam: pharynx normal, moist mucous membranes, No pharyngeal erythema, No tonsillar exudate Neck Exam: normal inspection, non-tender, No lymphadenopathy Respiratory Exam: normal breath sounds, crackles/rales (L lung base), No rhonchi , No wheezing Cardiovascular Exam: regular rate/rhythm, normal heart sounds, No murmur Extremity Exam: normal inspection Back Exam: normal inspection Final Diagnosis/Problem List - Final Discharge Diagnosis/Problem (1) Hand pain, right Current Visit: Yes Status: Acute Assessment & Plan: Will send home on neurontin 100mg po TID. Could certainly increase if it was helping her. She will f/u with Dr. Gan. Use positional methods to decrease pain as much as possible. (2) Chest pain Current Visit: Yes Status: Resolved Assessment & Plan: ID ruled out with negative troponins. 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 (3) Hypotension Current Visit: Yes Status: Resolved Assessment & Plan: resolved. (4) CHF (congestive heart failure) Current Visit: Yes Status: Chronic Assessment & Plan: will give po lasix here and she will go home on lasix; she thinks she has an rx at [facility] from Dr[facility] Gee. (5) Unsteadiness Current Visit: Yes Status: Chronic Assessment & Plan: Will have PT evaluate her; I think likley just related to orthopedic issues. - Discharge Disposition: Home, Self-Care Condition: Stable Prescriptions: New Gabapentin [Neurontin] 100 mg PO TID #30 capsule Continue Clonazepam [Klonopin] 2 mg PO QPM Atorvastatin Calcium [Lipitor 40Mg] 40 mg PO QPM Lamotrigine [Lamictal] 300 mg PO QPM Fluticasone/Salmeterol [Advair 250-50 Diskus] 1 puff IH BID Docusate Sodium 100 mg [Colace 100 MG] 200 mg PO BID Tiotropium [place] Inhaler [Spiriva 18 Mcg/Cap Inhaler] 1 puff IH DAILY Levothyroxine Sodium [Synthroid] 1 tab PO QAM Multivitamin/Iron/Folic Acid [Centrum Complete Multivit Tab] 1 each PO QAM Vilazodone Hydrochloride [Viibryd] 40 mg PO DAILY Trazodone HCl 200 mg PO HS Dulaglutide [Trulicity] 1.5 mg SQ WEEKLY Dextroamphetamine/Amphetamine [Adderall 20 mg Tablet] 40 mg PO BID Valacyclovir HCl [Valacyclovir] 2,000 mg PO UD Loratadine 10 mg [Claritin 10 mg] 10 mg PO QAM Lisinopril 5 mg [Zestril 5 MG] 5 mg PO QAM Ranitidine HCl 300 mg PO QPM Prazosin HCl 5 mg PO QPM Aspirin EC 325 mg [Ecotrin 325 MG] 325 mg PO DAILY Instructions: Heart Failure Follow up with: MARLIN URBINA [Primary Care Provider] -
[2017-10-05] MEDS ORDERED: CLARITIN 10 MG PO SCH (10:00)
[2017-10-05] MEDS ORDERED: ENOXAPARIN SODIUM SQ SCH (10:00)
[2017-10-05] MEDS ORDERED: Ecotrin 325 MG PO SCH (10:00)
[2017-10-05] MEDS ORDERED: NON-FORMULARY ITEM (Vilazodone Hydrochloride [Viibryd] 40 MG) PO SCH (10:00)
[2017-10-05] MEDS ORDERED: LASIX 20 MG PO SCH (10:00)
[2017-10-05] MEDS: Neurontin 100 MG PO SCH (10:00)
[2017-10-05] MEDS: SYNTHROID 100 MCG PO SCH (10:00)
[2017-10-05] MEDS ORDERED: FLUCELVAX QUAD 2017-2018 SYR IM ONE (10:00)
[2017-10-05] MEDS ORDERED: LEVOTHYROXINE SODIUM PO SCH (10:00)
[2017-10-05 11:00] VITALS: BP 119/68; PULSE 58; O2SAT 97
== END 2017-10-05 13:30 | disposition home or self-care (01) ==
LOC: ED 08:07 → MED SURG 13:51
PROVIDERS: ADMIT Family Medicine; ATTEND Family Medicine
DX: M79.641 Pain in right hand (principal); R07.9 Chest pain, unspecified; I95.1 Orthostatic hypotension; I50.9 Heart failure, unspecified; R29.6 Repeated falls; F31.9 Bipolar disorder, unspecified; E03.9 Hypothyroidism, unspecified; J44.9 Chronic obstructive pulmonary disease, unspecified; M19.90 Unspecified osteoarthritis, unspecified site; N80.9 Endometriosis, unspecified; R26.81 Unsteadiness on feet; Z79.899 Other long term (current) drug therapy; I25.2 Old myocardial infarction; Z72.0 Tobacco use
CPT/HCPCS: 36000; 36415; 70450; 71020; 73090; 73590; 74176; 80048; 80053; 80307; 81002; 82550; 83880; 84132; 84484; 85025; 85027; 93005; 93268; 94640; 94762; 96360; 96374; 99285; G0008; G0378; J1650; J1940; 90682; A9270-GY

== ENCOUNTER 2017-12-10 00:47 | Emergency (ER) | payer OTHER ==
[2017-12-10 01:13] VITALS: BP 137/82; PULSE 74; O2SAT 95
[2017-12-10] MEDS ORDERED: Compazine 10 MG/2 ML IV ONE (01:23)
[2017-12-10] MEDS ORDERED: BENADRYL 50 MG/ML IV ONE (01:23)
[2017-12-10] MEDS ORDERED: Sodium Chloride 0.9% 1000 ML 1,000 ML IV SCH (01:30)
[2017-12-10] MEDS ORDERED: Compazine 10 MG/2 ML ONE (01:31)
[2017-12-10] MEDS ORDERED: Sodium Chloride 0.9% 1000 ML 1,000 ML ONE (01:31)
[2017-12-10] MEDS ORDERED: BENADRYL 50 MG/ML ONE (01:31)
--- NOTE | 2017-12-10 01:32 | ERPHSYRPT ---
- History of Present Illness Time Seen by Provider: 12/10/17 01:20 Source: patient Patient Subjective Stated Complaint: began with headache yesterday. vomiting today Triage Nursing Assessment: headache, photosensitivity, nausea, vomiting [employer] per patient. Physician History: PATIENT WITH A HISTORY OF MIGRAINE HEADACHES, TYPE 2 DIABETES, HYPERTENSION, CONGESTIVE HEART FAILURE COMPLAINS OF HEADACHES FOR 2 DAYS ASSOCIATED WITH EMESIS X 6 EPISODES. HAS GENERALIZED HEADACHE, RATES PAIN SCALE 7/10 ASSOCIATED WITH PHOTOPHOBIA, DENIES SLURRED SPEECH, NUMBNESS TINGLING OR WEAKNESS IN EXTREMITIES. Timing/Duration: yesterday Quality: throbbing Head Pain Location: global Severity of Pain-Max: moderate Severity of Pain-Current: moderate Recent Head Trauma: chronic headaches Modifying Factors: Improves With: noise Associated Symptoms: sensitive to light Previous symptoms: same symptoms as today Allergies/Adverse Reactions: armodafinil [From Nuvigil] Allergy (Verified 06/14/16 10:41) azithromycin [From Zithromax] Allergy (Verified 06/14/16 10:41) throat closed-HEART PALPITATIONS latex Allergy (Verified 06/14/16 10:41) hives during exam metronidazole [From Flagyl] Allergy (Verified 06/14/16 10:41) sob throat closes anaphalactic Metronidazole HCl [From Flagyl] Allergy (Verified 06/14/16 10:41) HEART PALPITATIONS Penicillins Allergy (Verified 06/14/16 10:41) "I DON'T KNOW" ziprasidone HCl [From Geodon] Allergy (Verified 06/14/16 10:41) hallucinate/confusion ziprasidone mesylate [From Geodon] Allergy (Verified 06/14/16 10:41) HEART PALPITATIONS adhesive tape Allergy (Uncoded 01/09/15 19:23) Rash Home Medications: Atorvastatin Calcium [Lipitor 40Mg] 40 mg PO QPM 12/31/15 [History] Clonazepam [Klonopin] 2 mg PO QPM 12/31/15 [History] Docusate Sodium 100 mg [Colace 100 MG] 200 mg PO BID 12/31/15 [History] Fluticasone/Salmeterol [Advair 250-50 Diskus] 1 puff IH BID 12/31/15 [History] Lamotrigine [Lamictal] 300 mg PO QPM 12/31/15 [History] Levothyroxine Sodium [Synthroid] 1 tab PO QAM 12/31/15 [History] Multivitamin/Iron/Folic Acid [Centrum Complete Multivit Tab] 1 each PO QAM [History] Tiotropium [place] Inhaler [Spiriva 18 Mcg/Cap Inhaler] 1 puff IH DAILY [History] Vilazodone Hydrochloride [Viibryd] 40 mg PO DAILY 12/31/15 [History] Trazodone HCl 200 mg PO HS 06/14/16 [History] Aspirin EC 325 mg [Ecotrin 325 MG] 325 mg PO DAILY 10/04/17 [History] Dextroamphetamine/Amphetamine [Adderall 20 mg Tablet] 40 mg PO BID 10/04/17 [ History] Dulaglutide [Trulicity] 1.5 mg SQ WEEKLY 10/04/17 [History] Lisinopril 5 mg [Zestril 5 MG] 5 mg PO QAM 10/04/17 [History] Loratadine 10 mg [Claritin 10 mg] 10 mg PO QAM 10/04/17 [History] Prazosin HCl 5 mg PO QPM 10/04/17 [History] Ranitidine HCl 300 mg PO QPM 10/04/17 [History] Valacyclovir HCl [Valacyclovir] 2,000 mg PO UD 10/04/17 [History] Albuterol 2.5 mg/0.5 ml [PROVENTIL Solution 2.5 MG/0.5 ML] 12/10/17 [ History] Fluticasone/Vilanterol [Breo Ellipta 100-25 Mcg INH] 12/10/17 [History] Metformin HCl [Fortamet] 12/10/17 [History] Hx Tetanus, Diphtheria Vaccination/Date Given: Yes Hx Influenza Vaccination/Date Given: Yes Hx Pneumococcal Vaccination/Date Given: Yes Immunizations Up to Date: Yes - Review of Systems Constitutional: No Fever, No Chills Eyes: No Symptoms Ears, Nose, & Throat: No Symptoms Respiratory: No Symptoms, No Cough, No Dyspnea Cardiac: No Symptoms, No Chest Pain, No Edema, No Syncope Abdominal/Gastrointestinal: No Symptoms, No Abdominal Pain, No Nausea, No Vomiting, No Diarrhea Genitourinary Symptoms: No Symptoms, No Dysuria Musculoskeletal: No Symptoms, No Back Pain, No Neck Pain Skin: No Symptoms, No Rash Neurological: Headache, No Dizziness, No Focal Weakness, No Sensory Changes Psychological: No Symptoms Endocrine: No Symptoms All Other Systems: Reviewed and Negative - Past Medical History Pertinent Past Medical History: Yes Neurological History: Migraines ENT History: Cataracts Cardiac History: Congestive Heart Failure, Myocardial Infarction ([place]), Other Respiratory History: Asthma, COPD Endocrine Medical History: Hypothyroidism Musculoskeletal History: Arthritis GI Medical History: Hemorrhoids History: No Pertinent History Psycho-Social History: Bipolar Female Reproductive Disorders: Endometriosis Other Medical History: Tachycardia - Past Surgical History Past Surgical History: Yes Neuro Surgical History: No Pertinent History Cardiac: Cardiac Catheterization Respiratory: No Pertinent History Gastrointestinal: Cholecystectomy Genitourinary: No Pertinent History Musculoskeletal: Other Female Surgical History: Section, Hysterectomy Other Surgical History: thyroidectomy. L knee scope. 2 BLADDER SURGERYS left knee replacement - Social History Smoking Status: Current every day smoker How long have you smoked: 29 Exposure to second hand smoke: Yes Alcohol Use: Socially Drug Use: none Patient Lives Alone: Yes Significant Family History: no pertinent family hx - Female History Hx Now: No (partial hyst) - Nursing Vital Signs Nursing Vital Signs: Initial Vital Signs Temperature 97.5 F 12/10/17 01:10 Pulse Rate 74 12/10/17 01:10 Respiratory Rate 20 12/10/17 01:10 Blood Pressure 137/82 12/10/17 01:10 O2 Sat by Pulse Oximetry 95 12/10/17 01:10 Pain Scale Pain Intensity 5 - Physical Exam General Appearance: no apparent distress, mild distress Eye Exam: PERRL/EOMI Ears, Nose, Throat Exam: normal ENT inspection, moist mucous membranes Neck Exam: normal inspection, supple, full range of motion, No meningismus Respiratory Exam: normal breath sounds, lungs clear Cardiovascular Exam: regular rate/rhythm, normal heart sounds Gastrointestinal/Abdominal Exam: soft, normal bowel sounds, No tenderness, No distention Back Exam: normal inspection, normal range of motion Mental 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, oriented x 3, cooperative 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 specialist Exam: normal speech, PERRL, No facial droop Coordination/Gait Exam: normal cerebellar function Motor/Sensory Exam: no motor deficit, no sensory deficit DTR Exam: bicep (R): 2+, bicep (L): 2+, tricep (R): 2+, tricep (L): 2+, knee (R) : 2+, knee (L): 2+, ankle (R): 2+ Skin Exam: normal color, warm, dry, No rash SpO2: 95 Oxygen Delivery: Room Air Ordered Tests: Active Orders 24 hr Category Date Time Status BMP Stat Lab 12/10/17 01:45 Completed CBC W DIFF Stat Lab 12/10/17 01:45 Completed Medication Summary Generic Name Dose Route Start Last Admin Trade Name Freq PRN Reason Stop Dose Admin Sodium Chloride 1,000 mls @ 100 mls/hr 12/10/17 01:30 12/10/17 01:44 Sodium Chloride 0.9% 1000 Ml IV 01/09/18 01:29 100 mls/hr .Q10H URIEL Administration Discontinued Medications Generic Name Dose Route Start Last Admin Trade Name Freq PRN Reason Stop Dose Admin Diphenhydramine HCl 50 mg 12/10/17 01:23 12/10/17 01:44 Benadryl 50 Mg/Ml IV 12/10/17 01:24 50 mg STAT ONE Administration Diphenhydramine HCl Confirm 12/10/17 01:31 Benadryl 50 Mg/Ml Administered 12/10/17 01:32 Dose 50 mg .ROUTE .STK-MED ONE Prochlorperazine Edisylate 10 mg 12/10/17 01:23 12/10/17 01:44 Compazine 10 Mg/2 Ml IV 12/10/17 01:24 10 mg STAT ONE Administration Prochlorperazine Edisylate Confirm 12/10/17 01:31 Compazine 10 Mg/2 Ml Administered 12/10/17 01:32 Dose 10 mg .ROUTE .STK-MED ONE Lab/Rad Data: Laboratory Result Diagrams 12/10/17 01:45 12/10/17 01:45 Laboratory Results 12/10/17 12/10/17 Range/Units 01:45 01:45 WBC 7.9 (4.0-10.5) K/mm3 RBC 4.27 (4.1-5.4) M/mm3 Hgb 12.1 (12.0-16.0) gm/dl Hct 37.6 (35-47) % MCV 88.1 (78-100) fl MCH 28.3 (26-32) pg MCHC 32.2 (32-36) g/dl RDW 13.8 (11.5-14.0) % Plt Count 243 (150-450) K/mm3 MPV 10.5 H (6-9.5) fl Gran % 59.7 (36.0-66.0) % Lymphocytes % 29.7 (24.0-44.0) % Monocytes % 8.4 (0.0-12.0) % Eosinophils % 1.7 (0.00-5.0) % Basophils % 0.5 (0.0-0.4) % Basophils # 0.04 (0-0.4) Sodium 144 (136-145) mEq/L Potassium 3.2 L (3.5-5.1) mEq/L Chloride 107 (98-107) mEq/L Carbon Dioxide 27.4 (21-32) mEq/L Anion Gap 12.4 (5-15) MEQ/L BUN 11 (9-20) mg/dL Creatinine 0.84 (0.55-1.30) mg/dl Estimated GFR > 60 ML/MIN Glucose 92 (70-110) MG/DL Calcium 8.7 (8.5-10.1) mg/dL - Progress Progress: improved, re-examined Progress Note: 12/10/17 01:31 ADMINISTERED IV NORMAL SALINE 100ML/HR, BENADRYL 50MG, COMPAZINE 10MG IV Counseled pt/family regarding: lab results, diagnosis, need for follow-up - Departure Time of Disposition: 02:40 Departure Disposition: Home Clinical Impression: MIGRAINE CEPHALGIA Condition: Stable Critical Care Time: No Referrals: MARLIN URBINA [Primary Care Provider] - Additional Instructions: CONITINUE ALL CURRENT MEDICATIONS. COMPAZINE 5MG EVERY 6 HOURS NEEDED FOR NAUSEA. CONSULT YOUR PRIMARY CARE PROVIDER FOR EVALUATON. Prescriptions: Prochlorperazine Maleate 5 mg* [Compazine 5 MG] 5 mg PO Q6HPRN PRN #12 tablet PRN Reason: Nausea
[2017-12-10 01:59] LABS: BASOPHIL % 0.5 % (0.0-0.4); Basophil (Absolute #) 0.04 (0-0.4); Eosinophil % 1.7 % (0.00-5.0); Eosinophil (Absolute #) 0.13 (0-0.5); Granulocytes % 59.7 % (36.0-66.0); Hematocrit 37.6 % (35-47); Hemoglobin 12.1 gm/dl (12.0-16.0); Lymphocyte (Absolute #) 2.34 (1.0-4.6); Lymphocytes % 29.7 % (24.0-44.0); Mean Cell Volume 88.1 fl (78-100); Mean Corpuscular Hemoglobin 28.3 pg (26-32); Mean Corpuscular Hgb Concent. 32.2 g/dl (32-36); Mean Platelet Volume 10.5 fl (6-9.5); Monocyte (Absolute #) 0.66 (0.0-1.3); Monocytes % 8.4 % (0.0-12.0); Platelet Count 243 K/mm3 (150-450); Red Blood Count 4.27 M/mm3 (4.1-5.4); Red Cell Distribution Width 13.8 % (11.5-14.0); White Blood Count 7.9 K/mm3 (4.0-10.5)
[2017-12-10 02:14] LABS: ANION GAP 12.4 MEQ/L (5-15); BLOOD UREA NITROGEN 11 mg/dL (9-20); CHLORIDE 107 mEq/L (98-107); Calcium 8.7 mg/dL (8.5-10.1); Carbon Dioxide 27.4 mEq/L (21-32); Creatinine 1 0.84 mg/dl (0.55-1.30); EST GLOMERULAR FILTRATION RATE > 60 ML/MIN; Glucose 92 MG/DL (70-110); Potassium 3.2 mEq/L (3.5-5.1); SODIUM 144 mEq/L (136-145)
== END 2017-12-10 03:17 | disposition home or self-care (01) ==
LOC: ED 00:47
DX: G43.909 Migraine, unspecified, not intractable, without status migrainosus (principal); I50.9 Heart failure, unspecified; E03.9 Hypothyroidism, unspecified; J45.909 Unspecified asthma, uncomplicated; F31.9 Bipolar disorder, unspecified; E11.9 Type 2 diabetes mellitus without complications; I10 Essential (primary) hypertension; N80.9 Endometriosis, unspecified; Z72.0 Tobacco use; Z79.899 Other long term (current) drug therapy
CPT/HCPCS: 36000; 36415; 80048; 85025; 96360; 99283; J1200

== ENCOUNTER 2018-02-17 15:15 | Observation (INO) | payer OTHER ==
[2018-02-17] MEDS ORDERED: NovoLIN R SQ PRN (16:17)
[2018-02-17 16:48] LABS: BASOPHIL % 0.5 % (0.0-0.4); Basophil (Absolute #) 0.05 (0-0.4); Eosinophil (Absolute #) 0.11 (0-0.5); Granulocyte Absolute (ANC) 7.37 (1.4-6.9); Granulocytes % 67.6 % (36.0-66.0); Hematocrit 44.3 % (35-47); Hemoglobin 14.3 gm/dl (12.0-16.0); Lymphocyte (Absolute #) 2.48 (1.0-4.6); Lymphocytes % 22.7 % (24.0-44.0); Mean Corpuscular Hemoglobin 28.7 pg (26-32); Mean Corpuscular Hgb Concent. 32.3 g/dl (32-36); Mean Platelet Volume 10.7 fl (6-9.5); Monocytes % 8.2 % (0.0-12.0); Platelet Count 270 K/mm3 (150-450); Red Blood Count 4.98 M/mm3 (4.1-5.4); Red Cell Distribution Width 14.1 % (11.5-14.0); White Blood Count 10.9 K/mm3 (4.0-10.5)
[2018-02-17] MEDS: Lactated Ringers 1,000 ML IV SCH ×3 (16:55→19:37)
[2018-02-17 17:08] LABS: ALBUMIN 4.5 g/dL (3.5-5.0); BLOOD UREA NITROGEN 12 mg/dL (7-17); CHLORIDE 104 mmol/L (98-107); Calcium 9.5 mg/dL (8.4-10.2); Carbon Dioxide 26 mmol/L (22-30); Creatinine 1 0.81 mg/dL (0.52-1.04); Glucose 93 mg/dL (74-106); Potassium 3.6 mmol/L (3.5-5.1); SGOT/AST 17 U/L (14-36); SGPT/ALT 18 U/L (0-35); SODIUM 142 mmol/L (137-145); Total Protein 7.6 g/dL (6.3-8.2)
[2018-02-17 17:09] LABS: ALKALINE PHOSPHATASE 104 U/L (38-126); AMYLASE 76 U/L (30-110); ANION GAP 15.5 MEQ/L (5-15); LIPASE 75 U/L (23-300)
[2018-02-17] MEDS ORDERED: MEDICATION INTERVENTION PO SCH (17:30)
[2018-02-17] MEDS ORDERED: TYLENOL 325 MG PO PRN (19:30)
[2018-02-17] MEDS ORDERED: TRAZODONE HCL 200 MG PO SCH (22:00)
[2018-02-17] MEDS ORDERED: Pepcid 20 MG PO SCH (22:00)
[2018-02-17] MEDS ORDERED: KLONOPIN PO SCH (22:00)
[2018-02-17] MEDS ORDERED: ZOCOR 20MG PO SCH (22:00)
[2018-02-17] MEDS ORDERED: DESYREL 50 MG PO SCH (22:00)
[2018-02-17] MEDS ORDERED: PRAZOSIN HCL 5 MG PO SCH (22:00)
[2018-02-17] MEDS ORDERED: LIPITOR 40MG PO SCH (22:00)
[2018-02-17] MEDS ORDERED: CLONAZEPAM 2 MG PO SCH (22:00)
[2018-02-17] MEDS ORDERED: NON-FORMULARY ITEM (Ranitidine Hcl [Ranitidine Hcl] 300 MG) PO SCH (22:00)
[2018-02-17 22:09] LABS: Appearance SLIGHTLY CLOUDY (CLEAR); Bilirubin NEGATIVE (NEGATIVE); Blood TRACE NON-HEM Ery/ul (0-5); Glucose NEGATIVE (NEGATIVE); Ketones NEGATIVE (NEGATIVE); Leukocyte Esterase 1+ (NEGATIVE); Nitrite NEGATIVE (NEGATIVE); Protein,Urine Dip TRACE (Negative); Urobilinogen NORMAL mg/dL (0-1)
[2018-02-17 22:13] LABS: Bacteria RARE /HPF (NEGATIVE); Epithelial Cells FEW /HPF (FEW); WBC 25-50 /HPF (0-5)
[2018-02-17] MEDS: Zofran 4 MG/2 ML VIAL IV PRN (22:55)
[2018-02-18] MEDS: Lactated Ringers 1,000 ML IV SCH (03:31)
[2018-02-18 04:02] LABS: 027 TOX PROD PRESUMPTIVE NEGATIVE (NEGATIVE); TOXIGENIC C. DIFF ORG NEGATIVE (NEGATIVE)
[2018-02-18 04:57] VITALS: O2SAT 95
[2018-02-18] MEDS: Zofran 4 MG/2 ML VIAL IV PRN (05:19)
[2018-02-18 06:02] LABS: Hematocrit 38.7 % (35-47); Hemoglobin 12.3 gm/dl (12.0-16.0); Mean Cell Volume 90.8 fl (78-100); Mean Corpuscular Hemoglobin 28.9 pg (26-32); Mean Corpuscular Hgb Concent. 31.8 g/dl (32-36); Mean Platelet Volume 10.6 fl (6-9.5); Platelet Count 230 K/mm3 (150-450); Red Blood Count 4.26 M/mm3 (4.1-5.4); Red Cell Distribution Width 13.8 % (11.5-14.0); White Blood Count 7.7 K/mm3 (4.0-10.5)
[2018-02-18 06:03] LABS: BLOOD UREA NITROGEN 9 mg/dL (7-17); CHLORIDE 108 mmol/L (98-107); Calcium 8.5 mg/dL (8.4-10.2); Carbon Dioxide 26 mmol/L (22-30); Creatinine 1 0.66 mg/dL (0.52-1.04); Glucose 86 mg/dL (74-106); Potassium 3.7 mmol/L (3.5-5.1); SODIUM 141 mmol/L (137-145)
[2018-02-18 08:10] VITALS: PULSE 60
--- NOTE | 2018-02-18 08:11 | PCM.HP ---
History of Present Illness - Chief Complaint Chief Complaint: Nausea, vomiting, dehydration Date: 02/18/18 History of Present Illness: is a 57 year old female. she has had chronic problem with nausea vomiting and diarrhea and has been having this much worse recently over the last several weeks and presented to her [employer] yesterday with Christie and felt to weak and dehydrated to safely go home. She reports vomiting too many times to count having constant runny diarrhea for several days and not able to eat anything. Denies vomiting blood or black or bloody stools. She was hydrated overnight and labs were unremarkable and stool testing is pending. She reports vomiting all night and diarrhea every hour since 1 am however she never asked nurse for antiemetic and had no witnessed vomiting or diarrhea. She is ambulatory in the room and is in the last room on the partida and takes herself to the bathroom for each event. She does report feeling much better after the fluids but still having the diarrhea and cramping diffuse pains in the abdomen - Review of Systems Constitutional: Fever, Chills, Fatigue Eyes: No Symptoms Ears, Nose, & Throat: No Symptoms Respiratory: No Cough, No Short Of Breath Cardiac: No Chest Pain, No Edema, No Syncope Abdominal/Gastrointestinal: Abdominal Pain, Nausea, Vomiting, Diarrhea, No Hematemesis, No Hematochezia, No Melena Genitourinary Symptoms: No Dysuria Musculoskeletal: Back Pain, No Neck Pain Skin: No Rash Neurological: Dizziness, No Focal Weakness, No Sensory Changes Psychological: No Symptoms Endocrine: No Symptoms Hematologic/Lymphatic: No Symptoms Immunological/Allergic: No Symptoms Medications & Allergies Home Medications: Home Medication List Atorvastatin Calcium 40 mg PO HS 02/17/18 [History Confirmed 02/17/18] Fluticasone/Vilanterol [Breo Ellipta 100-25 Mcg INH] 2 each IH DAILY 02/17/18 [ History Confirmed 02/17/18] Levothyroxine Sodium [Synthroid] 200 mg PO DAILY 02/17/18 [History Confirmed ] Lisinopril 5 mg [Zestril 5 MG] 5 mg PO DAILY 02/17/18 [History Confirmed 02/17/18] Prazosin HCl 5 mg PO HS 02/17/18 [History Confirmed 02/17/18] Prochlorperazine Maleate 5 mg PO Q6H PRN 02/17/18 [History Confirmed 02/17/18] Tiotropium [place] [Spiriva Respimat] 2.5 mcg IH DAILY 02/17/18 [History Confirmed 02/17/18] Trazodone HCl [Desyrel] 200 mg PO HS 02/17/18 [History Confirmed 02/17/18] Vilazodone Hydrochloride [Viibryd] 40 mg PO DAILY 02/17/18 [History Confirmed ] clonazePAM [Clonazepam] 2 mg PO HS 02/17/18 [History Confirmed 02/17/18] lamoTRIgine [Lamictal] 300 mg PO DAILY 02/17/18 [History Confirmed 02/17/18] raNITIdine HCl [Ranitidine HCl] 300 mg PO HS 02/17/18 [History Confirmed ] Allergies/Adverse Reactions: Allergies Allergy/AdvReac Type Severity Reaction Status Date / Time armodafinil [From Nuvigil] Allergy Verified 06/14/16 10:41 azithromycin [From Zithromax] Allergy throat Verified 06/14/16 10:41 closed-HEART PALPITATIONS latex Allergy hives Verified 06/14/16 10:41 during exam metronidazole [From Flagyl] Allergy sob throat Verified 06/14/16 10:41 closes anaphalactic Metronidazole HCl Allergy HEART Verified 06/14/16 10:41 [From Flagyl] PALPITATIONS Penicillins Allergy "I DON'T Verified 06/14/16 10:41 KNOW" ziprasidone HCl [From Geodon] Allergy hallucinate Verified 06/14/16 10:41 /confusion ziprasidone mesylate Allergy HEART Verified 06/14/16 10:41 [From Geodon] PALPITATIONS adhesive tape Allergy Rash Uncoded 01/09/15 19:23 - Past Medical History Past Medical History: Yes Neurological History: Migraines ENT History: Cataracts Cardiac History: Congestive Heart Failure, Myocardial Infarction ([place]), Other Respiratory History: Asthma, COPD Endocrine Medical History: Hypothyroidism Musculoskelatal History: Arthritis GI Medical History: Hemorrhoids History: No Pertinent History Pyscho-Social History: Bipolar Reproductive Disorders: Endometriosis Comment: Tachycardia - Female History Are you now?: No - Past Surgical History Past Surgical History: Yes Neuro Surgical History: No Pertinent History Cardiac History: Cardiac Catheterization Respiratory Surgery: No Pertinent History GI Surgical History: Cholecystectomy Genitourinary Surgical Hx: No Pertinent History Musculskeletal Surgical Hx: Other Female Surgical History: Section, Hysterectomy Other Surgical History: thyroidectomy. L knee scope. 2 BLADDER SURGERYS left knee replacement - Social History Smoking Status: Current every day smoker How long have you smoked: 23 Exposure to second hand smoke: Yes Alcohol: None Drug Use: none Significant Family History: no pertinent family hx - Physical Exam Vital Signs: Vital Signs - 24 hr Temp Pulse Resp BP BP Pulse Ox 02/18/18 08:06 60 16 95 02/18/18 04:10 97.8 F 69 18 126/57 95 02/18/18 00:08 98.4 F 67 18 124/61 92 L 02/17/18 20:12 64 16 94 L 02/17/18 20:07 98.5 F 70 16 124/61 94 L 02/17/18 17:30 84 18 95 02/17/18 16:01 98.1 F 111 H 132/71 02/17/18 15:57 98.1 F 111 H 18 132/71 95 02/17/18 15:41 98.1 F 111 H 18 132/71 95 General Appearance: no apparent distress, alert, obese Neurologic Exam: alert, oriented x 3, cooperative, normal mood/affect, nml cerebellar function, nml station & gait, sensation nml, No motor deficits Eye Exam: PERRL/EOMI, eyes nml inspection Ears, Nose, Throat Exam: normal ENT inspection, TMs normal, pharynx normal, moist mucous membranes Neck Exam: normal inspection, non-tender, supple, full range of motion Respiratory Exam: normal breath sounds, lungs clear, No respiratory distress Cardiovascular Exam: regular rate/rhythm, normal heart sounds, normal peripheral pulses Gastrointestinal/Abdomen Exam: soft, normal bowel sounds, No tenderness, No mass Back Exam: normal inspection, normal range of motion, No CVA tenderness, No vertebral tenderness Extremity Exam: normal inspection, normal range of motion, pelvis stable Skin Exam: normal color, warm, dry, No rash Lymphatic Exam: No adenopathy Results - Labs Lab/Micro Results: Accuchecks Date 02/17/18 Date 02/17/18 Time 22:00 Time 16:30 Accucheck Value: 85 Accucheck Value: 103 Lab Results-Last 24 Hours 02/17/18 02/17/18 02/17/18 Range/Units 16:43 16:43 16:43 WBC 10.9 H (4.0-10.5) K/mm3 RBC 4.98 (4.1-5.4) M/mm3 Hgb 14.3 (12.0-16.0) gm/dl Hct 44.3 (35-47) % MCV 89.0 (78-100) fl MCH 28.7 (26-32) pg MCHC 32.3 (32-36) g/dl RDW 14.1 H (11.5-14.0) % Plt Count 270 (150-450) K/mm3 MPV 10.7 H (6-9.5) fl Gran % 67.6 H (36.0-66.0) % Eos # (Auto) 0.11 (0-0.5) Absolute Lymphs (auto) 2.48 (1.0-4.6) Absolute Monos (auto) 0.90 (0.0-1.3) Lymphocytes % 22.7 L (24.0-44.0) % Monocytes % 8.2 (0.0-12.0) % Eosinophils % 1.0 (0.00-5.0) % Basophils % 0.5 (0.0-0.4) % Absolute Granulocytes 7.37 H (1.4-6.9) Basophils # 0.05 (0-0.4) Sodium 142 (137-145) mmol/L Potassium 3.6 (3.5-5.1) mmol/L Chloride 104 (98-107) mmol/L Carbon Dioxide 26 (22-30) mmol/L Anion Gap 15.5 H (5-15) MEQ/L BUN 12 (7-17) mg/dL Creatinine 0.81 (0.52-1.04) mg/dL Estimated GFR > 60.0 ML/MIN Glucose 93 (74-106) mg/dL Hemoglobin A1c 5.23 (4.5-6.0) % Lactic Acid (0.4-2.0) Calcium 9.5 (8.4-10.2) mg/dL Magnesium 1.9 (1.6-2.3) mg/dL Total Bilirubin 0.20 (0.2-1.3) mg/dL AST 17 (14-36) U/L ALT 18 (0-35) U/L Alkaline Phosphatase 104 (38-126) U/L Serum Total Protein 7.6 (6.3-8.2) g/dL Albumin 4.5 (3.5-5.0) g/dL Amylase 76 (30-110) U/L Lipase 75 (23-300) U/L TSH 3rd Generation (0.47-4.68) mIU/L Ur Collection Type Urine Color (YELLOW) Urine Appearance (CLEAR) Urine pH (5-6) Ur Specific [place] (1.005-1.025) Urine Protein (Negative) Urine Ketones (NEGATIVE) Urine Blood (0-5) Sung/ul Urine Nitrite (NEGATIVE) Urine Bilirubin (NEGATIVE) Urine Urobilinogen (0-1) mg/dL Ur Leukocyte Esterase (NEGATIVE) Urine Microscopic RBC (0-2) /HPF Urine Microscopic WBC (0-5) /HPF Ur Epithelial Cells (FEW) /HPF Urine Bacteria (NEGATIVE) /HPF Urine Glucose (NEGATIVE) mg/dL Stl C. diff Tox B Gene (NEGATIVE) C.difficile 027-NAP1-B1 (NEGATIVE) Specimen Received 02/17/18 02/17/18 02/18/18 Range/Units 23:14 Unknown 05:20 WBC 7.7 (4.0-10.5) K/mm3 RBC 4.26 (4.1-5.4) M/mm3 Hgb 12.3 (12.0-16.0) gm/dl Hct 38.7 (35-47) % MCV 90.8 (78-100) fl MCH 28.9 (26-32) pg MCHC 31.8 L (32-36) g/dl RDW 13.8 (11.5-14.0) % Plt Count 230 (150-450) K/mm3 MPV 10.6 H (6-9.5) fl Gran % (36.0-66.0) % Eos # (Auto) (0-0.5) Absolute Lymphs (auto) (1.0-4.6) Absolute Monos (auto) (0.0-1.3) Lymphocytes % (24.0-44.0) % Monocytes % (0.0-12.0) % Eosinophils % (0.00-5.0) % Basophils % (0.0-0.4) % Absolute Granulocytes (1.4-6.9) Basophils # (0-0.4) Sodium (137-145) mmol/L Potassium (3.5-5.1) mmol/L Chloride (98-107) mmol/L Carbon Dioxide (22-30) mmol/L Anion Gap (5-15) MEQ/L BUN (7-17) mg/dL Creatinine (0.52-1.04) mg/dL Estimated GFR ML/MIN Glucose (74-106) mg/dL Hemoglobin A1c (4.5-6.0) % Lactic Acid (0.4-2.0) Calcium (8.4-10.2) mg/dL Magnesium (1.6-2.3) mg/dL Total Bilirubin (0.2-1.3) mg/dL AST (14-36) U/L ALT (0-35) U/L Alkaline Phosphatase (38-126) U/L Serum Total Protein (6.3-8.2) g/dL Albumin (3.5-5.0) g/dL Amylase (30-110) U/L Lipase (23-300) U/L TSH 3rd Generation (0.47-4.68) mIU/L Ur Collection Type CCMS Urine Color YELLOW (YELLOW) Urine Appearance SLIGHTLY CLOUDY (CLEAR) Urine pH 5.0 (5-6) Ur Specific [place] 1.020 (1.005-1.025) Urine Protein TRACE (Negative) Urine Ketones NEGATIVE (NEGATIVE) Urine Blood TRACE NON-HEM (0-5) Sung/ul Urine Nitrite NEGATIVE (NEGATIVE) Urine Bilirubin NEGATIVE (NEGATIVE) Urine Urobilinogen NORMAL (0-1) mg/dL Ur Leukocyte Esterase 1+ (NEGATIVE) Urine Microscopic RBC 5-10 (0-2) /HPF Urine Microscopic WBC 25-50 (0-5) /HPF Ur Epithelial Cells FEW (FEW) /HPF Urine Bacteria RARE (NEGATIVE) /HPF Urine Glucose NEGATIVE (NEGATIVE) mg/dL Stl C. diff Tox B Gene NEGATIVE (NEGATIVE) C.difficile 027-NAP1-B1 PRESUMPTIVE NEGATIVE (NEGATIVE) Specimen Received 02-17-18 2200 02/18/18 02/18/18 Range/Units 05:20 05:27 WBC (4.0-10.5) K/mm3 RBC (4.1-5.4) M/mm3 Hgb (12.0-16.0) gm/dl Hct (35-47) % MCV (78-100) fl MCH (26-32) pg MCHC (32-36) g/dl RDW (11.5-14.0) % Plt Count (150-450) K/mm3 MPV (6-9.5) fl Gran % (36.0-66.0) % Eos # (Auto) (0-0.5) Absolute Lymphs (auto) (1.0-4.6) Absolute Monos (auto) (0.0-1.3) Lymphocytes % (24.0-44.0) % Monocytes % (0.0-12.0) % Eosinophils % (0.00-5.0) % Basophils % (0.0-0.4) % Absolute Granulocytes (1.4-6.9) Basophils # (0-0.4) Sodium 141 (137-145) mmol/L Potassium 3.7 (3.5-5.1) mmol/L Chloride 108 H (98-107) mmol/L Carbon Dioxide 26 (22-30) mmol/L Anion Gap 11.0 (5-15) MEQ/L BUN 9 (7-17) mg/dL Creatinine 0.66 (0.52-1.04) mg/dL Estimated GFR > 60.0 ML/MIN Glucose 86 (74-106) mg/dL Hemoglobin A1c (4.5-6.0) % Lactic Acid 0.9 (0.4-2.0) Calcium 8.5 (8.4-10.2) mg/dL Magnesium (1.6-2.3) mg/dL Total Bilirubin (0.2-1.3) mg/dL AST (14-36) U/L ALT (0-35) U/L Alkaline Phosphatase (38-126) U/L Serum Total Protein (6.3-8.2) g/dL Albumin (3.5-5.0) g/dL Amylase (30-110) U/L Lipase (23-300) U/L TSH 3rd Generation 0.790 (0.47-4.68) mIU/L Ur Collection Type Urine Color (YELLOW) Urine Appearance (CLEAR) Urine pH (5-6) Ur Specific [place] (1.005-1.025) Urine Protein (Negative) Urine Ketones (NEGATIVE) Urine Blood (0-5) Sung/ul Urine Nitrite (NEGATIVE) Urine Bilirubin (NEGATIVE) Urine Urobilinogen (0-1) mg/dL Ur Leukocyte Esterase (NEGATIVE) Urine Microscopic RBC (0-2) /HPF Urine Microscopic WBC (0-5) /HPF Ur Epithelial Cells (FEW) /HPF Urine Bacteria (NEGATIVE) /HPF Urine Glucose (NEGATIVE) mg/dL Stl C. diff Tox B Gene (NEGATIVE) C.difficile 027-NAP1-B1 (NEGATIVE) Specimen Received Accuchecks Date 02/17/18 Date 02/17/18 Time 22:00 Time 16:30 Accucheck Value: 85 Accucheck Value: 103 - Other Procedures and Tests Respiratory Therapy 02/18/18 07:00 Respiratory MDI UD Respiratory MDI UD Assessment/Plan (1) Vomiting Status: Acute Assessment & Plan: discussed would recommend stopping her trulicity and metformin on discharge as these can exacerbate her GI upset and she was using these mostly for weight loss she states. Her last A1c was in the 5% range She has no focal findings [facility] at [facility] time stool studies pending has appointment already scheduled with GI for follow up of the chronic gi complaints feels safe going home today will d/c home with instructions to stop the trulicity and the metformin. Code(s): R11.10 - VOMITING, UNSPECIFIED (2) Diarrhea Status: Acute Code(s): R19.7 - DIARRHEA, UNSPECIFIED
--- NOTE | 2018-02-18 08:34 | PCM.DCORD ---
- Discharge Discharge Date: 02/18/18 Disposition: Home, Self-Care Condition: Stable Prescriptions: Continue raNITIdine HCl [Ranitidine HCl] 300 mg PO HS Vilazodone Hydrochloride [Viibryd] 40 mg PO DAILY Lisinopril 5 mg [Zestril 5 MG] 5 mg PO DAILY Trazodone HCl [Desyrel] 200 mg PO HS Prochlorperazine Maleate 5 mg PO Q6H PRN PRN Reason: Nausea lamoTRIgine [Lamictal] 300 mg PO DAILY Prazosin HCl 5 mg PO HS clonazePAM [Clonazepam] 2 mg PO HS Levothyroxine Sodium [Synthroid] 200 mg PO DAILY Atorvastatin Calcium 40 mg PO HS Fluticasone/Vilanterol [Breo Ellipta 100-25 Mcg INH] 2 each IH DAILY Tiotropium [place] [Spiriva Respimat] 2.5 mcg IH DAILY Discontinued Metformin HCl 500 mg [Glucophage 500 MG] 500 mg PO BIDWM Follow up with: MARLIN URBINA [Primary Care Provider] - 1 Week
[2018-02-18 08:40] VITALS: BP 116/55
[2018-02-18] MEDS ORDERED: Spiriva 18 Mcg/Cap Inhaler IH SCH (10:00)
[2018-02-18] MEDS ORDERED: LEVOTHYROXINE SODIUM 200 MG PO SCH (10:00)
[2018-02-18] MEDS ORDERED: SYNTHROID 100 MCG PO SCH (10:00)
[2018-02-18] MEDS ORDERED: lamICTAL 100MG TABLET PO SCH (10:00)
[2018-02-18] MEDS ORDERED: FLUTICASONE IH SCH (10:00)
[2018-02-18] MEDS ORDERED: TIOTROPIUM BROMIDE 2.5 MCG IH SCH (10:00)
[2018-02-18] MEDS ORDERED: NON-FORMULARY ITEM (Vilazodone Hydrochloride [Viibryd] 40 MG) PO SCH (10:00)
[2018-02-18] MEDS ORDERED: VILANTEROL IH SCH (10:00)
[2018-02-18] MEDS ORDERED: PATIENT OWN MEDICATION IH SCH ×2 (10:00)
[2018-02-19 12:33] LABS: Source: Feces
== END 2018-02-18 09:20 | disposition home or self-care (01) ==
LOC: MED SURG 15:40
PROVIDERS: ADMIT Family Medicine; ATTEND Family Medicine
DX: E86.0 Dehydration (principal)
CPT/HCPCS: 36415; 80048; 80053; 81000; 82150; 82962; 83036; 83605; 83690; 83735; 84443; 85025; 85027; 87045; 87046; 87177; 87209; 87335; 87493; 94640; 94760; G0378; J2405; A9270-GY

== ENCOUNTER 2018-03-07 18:57 | Emergency (ER) | payer OTHER ==
--- NOTE | 2018-03-07 19:37 | ERPHSYRPT ---
- History of Present Illness Time Seen by Provider: 03/07/18 19:32 Historian: patient, family Exam Limitations: no limitations Patient Subjective Stated Complaint: was IP here 3 weeks ago for diarrhea.. has not improved since.. has f/u with specialist on . states bloating and stool that is mucous. vomit is green and bitter tasting like "shit". upper abdomen discomfort. Triage Nursing Assessment: no obvious distress. abdomen distended and feels bloated. upper abdomen discomfort with n/v/d x weeks. states everythihg she eats she has diarrhea approx 30 minutes after eating. + BSx4. states has had buring with urinating but has never had a UTI. denies fever. Physician History: The patient is a 57-year-old female with her complaining of chronic diarrhea with intermittent vomiting for several months. She was admitted for one day in this hospital on February 17 and discharged on February 18 for the same. She was hydrated overnight during hospitalization and sent home. Since being discharged from the hospital she's had numerous loose stools that she claims are watery every day. She's had intermittent episodes of vomiting. She'll have a period of good days followed by one day of vomiting. Today she went to a restaurant this morning and had eggs and sausage and gravy. She then within 20 minutes had watery diarrhea. She vomited 3 or 4 times a day. She has an appointment with a GI specialist on . She has generalized abdominal pain that has been the same over the past few months. Today she states her vomitus is green in color. Her past medical history is significant for hypertension, hypothyroidism, high cholesterol, GERD, COPD, and gastroenteritis. Her past surgical history is significant for , bladder lift, cholecystectomy, and thyroidectomy. Timing/Duration: other (several months) Activities at Onset: none Quality: aching Abdominal Pain Onset Location: generalized abdomen Pain Radiation: no radiation Severity of Pain-Max: mild Severity of Pain-Current: mild Modifying Factors: Improves With: nothing Associated Symptoms: diarrhea, nausea, vomiting Previous symptoms: same symptoms as today Allergies/Adverse Reactions: armodafinil [From Nuvigil] Allergy (Verified 03/07/18 19:15) azithromycin [From Zithromax] Allergy (Verified 03/07/18 19:15) throat closed-HEART PALPITATIONS latex Allergy (Verified 03/07/18 19:15) hives during exam metronidazole [From Flagyl] Allergy (Verified 03/07/18 19:15) sob throat closes anaphalactic Metronidazole HCl [From Flagyl] Allergy (Verified 03/07/18 19:15) HEART PALPITATIONS Penicillins Allergy (Verified 03/07/18 19:15) "I DON'T KNOW" ziprasidone HCl [From Geodon] Allergy (Verified 03/07/18 19:15) hallucinate/confusion ziprasidone mesylate [From Geodon] Allergy (Verified 03/07/18 19:15) HEART PALPITATIONS adhesive tape Allergy (Uncoded 03/07/18 19:15) Rash Home Medications: Atorvastatin Calcium 40 mg PO HS 02/17/18 [History] Fluticasone/Vilanterol [Breo Ellipta 100-25 Mcg INH] 2 each IH DAILY 02/17/18 [ History] Levothyroxine Sodium [Synthroid] 200 mg PO DAILY 02/17/18 [History] Lisinopril 5 mg [Zestril 5 MG] 5 mg PO DAILY 02/17/18 [History] Prazosin HCl 5 mg PO HS 02/17/18 [History] Prochlorperazine Maleate 5 mg PO Q6H PRN 02/17/18 [History] Tiotropium [place] [Spiriva Respimat] 2.5 mcg IH DAILY 02/17/18 [History] Trazodone HCl [Desyrel] 200 mg PO HS 02/17/18 [History] Vilazodone Hydrochloride [Viibryd] 40 mg PO DAILY 02/17/18 [History] clonazePAM [Clonazepam] 2 mg PO HS 02/17/18 [History] lamoTRIgine [Lamictal] 300 mg PO DAILY 02/17/18 [History] raNITIdine HCl [Ranitidine HCl] 300 mg PO HS 02/17/18 [History] Hx Tetanus, Diphtheria Vaccination/Date Given: Yes Hx Influenza Vaccination/Date Given: Yes Hx Pneumococcal Vaccination/Date Given: Yes Immunizations Up to Date: Yes - Review of Systems Constitutional: No Fever, No Chills Eyes: No Symptoms Ears, Nose, & Throat: No Symptoms Respiratory: No Cough, No Dyspnea Cardiac: No Chest Pain, No Edema, No Syncope Abdominal/Gastrointestinal: Abdominal Pain, Nausea, Vomiting, Diarrhea Genitourinary Symptoms: Dysuria Musculoskeletal: No Back Pain, No Neck Pain Skin: No Rash Neurological: No Dizziness, No Focal Weakness, No Sensory Changes Psychological: No Symptoms Endocrine: No Symptoms Hematologic/Lymphatic: No Symptoms Immunological/Allergic: No Symptoms All Other Systems: Reviewed and Negative - Past Medical History Pertinent Past Medical History: Yes Neurological History: Migraines ENT History: Cataracts Cardiac History: Congestive Heart Failure, Myocardial Infarction ([place]), Other Respiratory History: Asthma, COPD Endocrine Medical History: Hypothyroidism Musculoskeletal History: Arthritis GI Medical History: Hemorrhoids History: No Pertinent History Psycho-Social History: Bipolar Female Reproductive Disorders: Endometriosis Other Medical History: Tachycardia - Past Surgical History Past Surgical History: Yes Neuro Surgical History: No Pertinent History Cardiac: Cardiac Catheterization Respiratory: No Pertinent History Gastrointestinal: Cholecystectomy Genitourinary: No Pertinent History Musculoskeletal: Other Female Surgical History: Section, Hysterectomy Other Surgical History: thyroidectomy. L knee scope. 2 BLADDER SURGERYS left knee replacement - Social History Smoking Status: Never smoker How long have you smoked: 23 Exposure to second hand smoke: No Alcohol Use: Socially Drug Use: none Patient Lives Alone: No Significant Family History: no pertinent family hx - Female History Hx Now: No - Nursing Vital Signs Nursing Vital Signs: Initial Vital Signs Temperature 99.3 F 03/07/18 19:16 Pulse Rate 86 03/07/18 19:16 Respiratory Rate 16 03/07/18 19:16 Blood Pressure 120/69 03/07/18 19:16 O2 Sat by Pulse Oximetry 98 03/07/18 19:16 Pain Scale Pain Intensity 4 - Physical Exam General Appearance: no apparent distress, alert Eye Exam: PERRL/EOMI, eyes nml inspection Ears, Nose, Throat Exam: normal ENT inspection, pharynx normal, moist mucous membranes, No dry mucous membranes Neck Exam: normal inspection, non-tender, supple, full range of motion Respiratory Exam: normal breath sounds, lungs clear, No respiratory distress Cardiovascular Exam: regular rate/rhythm, normal heart sounds Gastrointestinal/Abdomen Exam: soft, tenderness (generalized), No mass, No guarding, No rebound Pelvic Exam: not done Rectal Exam: not done Back Exam: normal inspection, normal range of motion, No CVA tenderness, No vertebral tenderness Extremity Exam: normal inspection, normal range of motion, pelvis stable Neurologic Exam: alert, oriented x 3, cooperative, normal mood/affect, nml cerebellar function, sensation nml, No motor deficits Skin Exam: normal color, warm, dry SpO2 Interpretation: normal SpO2: 98 Oxygen Delivery: Room Air - CT Exams Abdomen/Pelvis CT Interpretation: Negative, Tele-radiologist Report (per Dr Guardado ), No appendicitis Ordered Tests: Active Orders 24 hr Category Date Time Status IV Insertion STAT Care 03/07/18 19:39 Active ABDOMEN AND PELVIS W/0 CONTRAS [CT] Stat Exams 03/07/18 19:40 Taken CBC W DIFF Stat Lab 03/07/18 19:44 Completed CMP Stat Lab 03/07/18 19:44 Completed CULTURE,URINE Stat Lab 03/07/18 19:44 Received LIPASE Stat Lab 03/07/18 19:44 Completed Lactic Acid Stat Lab 03/07/18 19:50 Results UA W/ MICROSCOPIC Stat Lab 03/07/18 19:44 Completed Urine Triage Profile Stat Lab 03/07/18 19:44 Completed Medication Summary Discontinued Medications Generic Name Dose Route Start Last Admin Trade Name Freq PRN Reason Stop Dose Admin Sodium Chloride 1,000 mls @ 999 mls/hr 03/07/18 19:39 03/07/18 19:49 Sodium Chloride 0.9% 1000 Ml IV 03/07/18 20:39 999 mls/hr .Q1H1M STA Administration Sodium Chloride Confirm 03/07/18 19:45 Sodium Chloride 0.9% 1000 Ml Administered 03/07/18 19:46 Dose 1,000 mls @ ud .ROUTE .STK-MED ONE Ondansetron HCl 4 mg 03/07/18 19:39 03/07/18 19:48 Zofran 4 Mg/2 Ml Vial IV 03/07/18 19:40 4 mg STAT ONE Administration Ondansetron HCl Confirm 03/07/18 19:45 Zofran 4 Mg/2 Ml Vial Administered 03/07/18 19:46 Dose 4 mg .ROUTE .STK-MED ONE Lab/Rad Data: Laboratory Result Diagrams 03/07/18 19:44 03/07/18 19:44 Laboratory Results 03/07/18 03/07/18 03/07/18 Range/Units 19:50 19:44 19:44 WBC (4.0-10.5) K/mm3 RBC (4.1-5.4) M/mm3 Hgb (12.0-16.0) gm/dl Hct (35-47) % MCV (78-100) fl MCH (26-32) pg MCHC (32-36) g/dl RDW (11.5-14.0) % Plt Count (150-450) K/mm3 MPV (6-9.5) fl Gran % (36.0-66.0) % Eos # (Auto) (0-0.5) Absolute Lymphs (auto) (1.0-4.6) Absolute Monos (auto) (0.0-1.3) Lymphocytes % (24.0-44.0) % Monocytes % (0.0-12.0) % Eosinophils % (0.00-5.0) % Basophils % (0.0-0.4) % Absolute Granulocytes (1.4-6.9) Basophils # (0-0.4) Sodium (137-145) mmol/L Potassium (3.5-5.1) mmol/L Chloride (98-107) mmol/L Carbon Dioxide (22-30) mmol/L Anion Gap (5-15) MEQ/L BUN (7-17) mg/dL Creatinine (0.52-1.04) mg/dL Estimated GFR ML/MIN Glucose (74-106) mg/dL Lactic Acid 1.9 (0.4-2.0) Calcium (8.4-10.2) mg/dL Total Bilirubin (0.2-1.3) mg/dL AST (14-36) U/L ALT (0-35) U/L Alkaline Phosphatase (38-126) U/L Serum Total Protein (6.3-8.2) g/dL Albumin (3.5-5.0) g/dL Lipase (23-300) U/L Ur Collection Type VOID Urine Color YELLOW (YELLOW) Urine Appearance CLEAR (CLEAR) Urine pH 5.0 (5-6) Ur Specific [place] 1.010 (1.005-1.025) Urine Protein NEGATIVE (Negative) Urine Ketones NEGATIVE (NEGATIVE) Urine Blood NEGATIVE (0-5) Sung/ul Urine Nitrite NEGATIVE (NEGATIVE) Urine Bilirubin NEGATIVE (NEGATIVE) Urine Urobilinogen NORMAL (0-1) mg/dL Ur Leukocyte Esterase 1+ (NEGATIVE) Urine Microscopic RBC 2-5 (0-2) /HPF Urine Microscopic WBC 15-25 (0-5) /HPF Ur Epithelial Cells FEW (FEW) /HPF Urine Bacteria FEW (NEGATIVE) /HPF Urine Culture Reflexed YES (NO) Urine Glucose NEGATIVE (NEGATIVE) mg/dL Urine Opiates Level NEGATIVE (NEGATIVE) Ur Methadone NEGATIVE (NEGATIVE) Urine Barbiturates NEGATIVE (NEGATIVE) Ur Phencyclidine (PCP) NEGATIVE (NEGATIVE) Urine Amphetamine POSITIVE (NEGATIVE) U Benzodiazepine Level NEGATIVE (NEGATIVE) Urine Cocaine NEGATIVE (NEGATIVE) Urine Marijuana (THC) NEGATIVE (NEGATIVE) Specimen Received 03/07/18194403/07/18 03/07/18 Range/Units 19:44 19:44 WBC 7.9 (4.0-10.5) K/mm3 RBC 4.35 (4.1-5.4) M/mm3 Hgb 12.5 (12.0-16.0) gm/dl Hct 39.0 (35-47) % MCV 89.7 (78-100) fl MCH 28.7 (26-32) pg MCHC 32.1 (32-36) g/dl RDW 14.0 (11.5-14.0) % Plt Count 244 (150-450) K/mm3 MPV 10.6 H (6-9.5) fl Gran % 55.5 (36.0-66.0) % Eos # (Auto) 0.20 (0-0.5) Absolute Lymphs (auto) 2.67 (1.0-4.6) Absolute Monos (auto) 0.60 (0.0-1.3) Lymphocytes % 33.8 (24.0-44.0) % Monocytes % 7.6 (0.0-12.0) % Eosinophils % 2.5 (0.00-5.0) % Basophils % 0.6 (0.0-0.4) % Absolute Granulocytes 4.37 (1.4-6.9) Basophils # 0.05 (0-0.4) Sodium 144 (137-145) mmol/L Potassium 3.8 (3.5-5.1) mmol/L Chloride 107 (98-107) mmol/L Carbon Dioxide 28 (22-30) mmol/L Anion Gap 12.9 (5-15) MEQ/L BUN 13 (7-17) mg/dL Creatinine 0.62 (0.52-1.04) mg/dL Estimated GFR > 60.0 ML/MIN Glucose 116 H (74-106) mg/dL Lactic Acid (0.4-2.0) Calcium 9.2 (8.4-10.2) mg/dL Total Bilirubin < 0.10 L (0.2-1.3) mg/dL AST 14 (14-36) U/L ALT 17 (0-35) U/L Alkaline Phosphatase 95 (38-126) U/L Serum Total Protein 6.4 (6.3-8.2) g/dL Albumin 3.7 (3.5-5.0) g/dL Lipase 111 (23-300) U/L Ur Collection Type Urine Color (YELLOW) Urine Appearance (CLEAR) Urine pH (5-6) Ur Specific [place] (1.005-1.025) Urine Protein (Negative) Urine Ketones (NEGATIVE) Urine Blood (0-5) Sung/ul Urine Nitrite (NEGATIVE) Urine Bilirubin (NEGATIVE) Urine Urobilinogen (0-1) mg/dL Ur Leukocyte Esterase (NEGATIVE) Urine Microscopic RBC (0-2) /HPF Urine Microscopic WBC (0-5) /HPF Ur Epithelial Cells (FEW) /HPF Urine Bacteria (NEGATIVE) /HPF Urine Culture Reflexed (NO) Urine Glucose (NEGATIVE) mg/dL Urine Opiates Level (NEGATIVE) Ur Methadone (NEGATIVE) Urine Barbiturates (NEGATIVE) Ur Phencyclidine (PCP) (NEGATIVE) Urine Amphetamine (NEGATIVE) U Benzodiazepine Level (NEGATIVE) Urine Cocaine (NEGATIVE) Urine Marijuana (THC) (NEGATIVE) Specimen Received - Progress Progress: improved Counseled pt/family regarding: lab results, diagnosis, need for follow-up, rad results - Departure Time of Disposition: 21:36 Departure Disposition: Home Clinical Impression: Gastroenteritis, UTI (urinary tract infection) Condition: Stable Critical Care Time: No Referrals: MARLIN URBINA [Primary Care Provider] - Additional Instructions: You have gastroenteritis. You were given fluids and Zofran by IV in the ER. You also have mild UTI. You were given nitrofurantoin 100 mg orally. Take Macrobid 100 mg 2 times a day for one week. Take Zofran 4 mg ODT every 6 hours as needed for nausea. Follow-up on with your GI specialist as previously scheduled. Prescriptions: Ondansetron ODT 4 MG [Zofran Odt 4 mg] 1 tab PO Q6H PRN PRN #10 tab.rapdis PRN Reason: Nausea/Vomiting Nitrofurantoin Monohyd/M-Cryst [Macrobid 100 mg Capsule] 100 mg PO BID #14 capsule
[2018-03-07] MEDS ORDERED: Zofran 4 MG/2 ML VIAL IV ONE (19:39)
[2018-03-07] MEDS ORDERED: Sodium Chloride 0.9% 1000 ML 1,000 ML IV STA (19:39)
[2018-03-07] MEDS ORDERED: Sodium Chloride 0.9% 1000 ML 1,000 ML ONE (19:45)
[2018-03-07] MEDS ORDERED: Zofran 4 MG/2 ML VIAL ONE (19:45)
[2018-03-07 19:48] LABS: BASOPHIL % 0.6 % (0.0-0.4); Basophil (Absolute #) 0.05 (0-0.4); Eosinophil % 2.5 % (0.00-5.0); Granulocyte Absolute (ANC) 4.37 (1.4-6.9); Granulocytes % 55.5 % (36.0-66.0); Hemoglobin 12.5 gm/dl (12.0-16.0); Lymphocyte (Absolute #) 2.67 (1.0-4.6); Lymphocytes % 33.8 % (24.0-44.0); Mean Cell Volume 89.7 fl (78-100); Mean Corpuscular Hemoglobin 28.7 pg (26-32); Mean Corpuscular Hgb Concent. 32.1 g/dl (32-36); Mean Platelet Volume 10.6 fl (6-9.5); Monocytes % 7.6 % (0.0-12.0); Platelet Count 244 K/mm3 (150-450); Red Blood Count 4.35 M/mm3 (4.1-5.4); White Blood Count 7.9 K/mm3 (4.0-10.5)
[2018-03-07 19:54] LABS: Lactic Acid 1.9 (0.4-2.0)
[2018-03-07 19:56] LABS: ALBUMIN 3.7 g/dL (3.5-5.0); ALKALINE PHOSPHATASE 95 U/L (38-126); ANION GAP 12.9 MEQ/L (5-15); BILIRUBIN,TOTAL < 0.10 mg/dL (0.2-1.3); BLOOD UREA NITROGEN 13 mg/dL (7-17); CHLORIDE 107 mmol/L (98-107); Calcium 9.2 mg/dL (8.4-10.2); Carbon Dioxide 28 mmol/L (22-30); Creatinine 1 0.62 mg/dL (0.52-1.04); Glucose 116 mg/dL (74-106); LIPASE 111 U/L (23-300); Potassium 3.8 mmol/L (3.5-5.1); SGOT/AST 14 U/L (14-36); SGPT/ALT 17 U/L (0-35); SODIUM 144 mmol/L (137-145); Total Protein 6.4 g/dL (6.3-8.2)
[2018-03-07 19:59] LABS: Appearance CLEAR (CLEAR)
[2018-03-07 20:00] LABS: Bacteria FEW /HPF (NEGATIVE); Bilirubin NEGATIVE (NEGATIVE); Blood NEGATIVE Ery/ul (0-5); Epithelial Cells FEW /HPF (FEW); Glucose NEGATIVE (NEGATIVE); Ketones NEGATIVE (NEGATIVE); Leukocyte Esterase 1+ (NEGATIVE); Nitrite NEGATIVE (NEGATIVE); Protein,Urine Dip NEGATIVE (Negative); Urobilinogen NORMAL mg/dL (0-1); WBC 15-25 /HPF (0-5)
[2018-03-07 20:04] LABS: Amphetamine,Urine POSITIVE (NEGATIVE); Barbiturate,Urine NEGATIVE (NEGATIVE); Benzodiazepine,Urine NEGATIVE (NEGATIVE); Cocaine,Urine NEGATIVE (NEGATIVE); Methadone,Urine NEGATIVE (NEGATIVE); Opiate,Urine NEGATIVE (NEGATIVE); PCP,Urine NEGATIVE (NEGATIVE); THC,Urine NEGATIVE (NEGATIVE)
[2018-03-07 21:18] VITALS: O2SAT 98
[2018-03-07] MEDS ORDERED: Macrobid 100MG Capsule PO ONE (21:38)
[2018-03-07] MEDS ORDERED: Macrobid 100MG Capsule ONE (21:47)
[2018-03-07 21:58] VITALS: BP 110/66; PULSE 88
[2018-03-07 23:04] LABS: 027 TOX PROD PRESUMPTIVE NEGATIVE (NEGATIVE); TOXIGENIC C. DIFF ORG NEGATIVE (NEGATIVE)
--- NOTE | 2018-03-08 08:43 | XRAY ---
Indication: Anterior abdominal pain and cramping. Nausea, vomiting, and diarrhea 6 weeks. Multiple contiguous axial images obtained through the abdomen and pelvis without contrast as ordered. Comparison: October 04, 2017. Lung bases demonstrates minimal lingular subsegmental atelectasis/scarring. No infiltrate or effusion. Heart is not enlarged. Stable distal paraesophageal calcified node. Stomach is distended with food. Noncontrasted stomach and bowel loops appear nonobstructed. Normal appendix. Again previous cholecystectomy and hysterectomy. No free fluid/air. Remaining liver, pancreas, spleen, adrenal glands, kidneys, ureters, and bladder appear unremarkable for noncontrast exam. Stable minimal aortoiliac calcifications without AAA. Osseous structures intact again with minimal degenerative changes. Impression: Stable negative CT abdomen/pelvis without contrast exam. Comment: Preliminary interpretation was made by [facility]. No discrepancy. CT DI 27.54
[2018-03-09 11:54] LABS: Source: Feces
== END 2018-03-07 21:58 | disposition home or self-care (01) ==
LOC: ED 18:57
DX: K52.9 Noninfective gastroenteritis and colitis, unspecified (principal); N39.0 Urinary tract infection, site not specified; R10.84 Generalized abdominal pain; R11.2 Nausea with vomiting, unspecified; Z79.899 Other long term (current) drug therapy
CPT/HCPCS: 36000; 36415; 74176; 80053; 80307; 81000; 83605; 83690; 85025; 87045; 87046; 87086; 87177; 87209; 87335; 87493; 96360; 96374; 99284; J2405; A9270-GY

== ENCOUNTER 2018-03-26 20:16 | Observation (INO) | payer OTHER ==
[2018-03-26] MEDS ORDERED: Sodium Chloride 0.9% 1000 ML 1,000 ML IV STA (20:48)
[2018-03-26] MEDS ORDERED: Reglan 10 MG/2 ML IV ONE (20:51)
[2018-03-26] MEDS ORDERED: BENADRYL 50 MG/ML IV ONE (20:51)
[2018-03-26] MEDS ORDERED: TORAdol 30 mg Injection IV ONE (20:51)
--- NOTE | 2018-03-26 21:00 | ERPHSYRPT ---
- History of Present Illness Time Seen by Provider: 03/26/18 20:37 Source: patient Exam Limitations: no limitations Patient Subjective Stated Complaint: was mowing today and got heated. became dizzy.. did go to her grandsons baseball gamne to night and still feels bad.. nausea with no vomiting Triage Nursing Assessment: alert and in no distress. skin warm and dry. states dizzy after mowing today. she was out a a baseball game this evening. feeling very dry. neuro intact. able to ambulate with no difficulty. Physician History: Pt started c/o headaches, dizziness, blurred vision around 2 PM, after she was mowing lawn outside. She felt dehydrated, went inside, lied down, and states, she could not see for about half hour. She states, it happened before, when she had migraines, but did not have one for about 10 years. She denies focal weakness, numbness, slurred speech, she is not sure if she passed out or not. She is nauseated, denies vomiting, fever, chest pain, other complaints. Timing/Duration: hour(s) (7) Quality: throbbing Head Pain Location: frontal Severity of Pain-Max: severe Severity of Pain-Current: severe Recent Head Trauma: frequent headaches Associated Symptoms: dizziness, nausea/vomiting Previous symptoms: same symptoms as today Allergies/Adverse Reactions: armodafinil [From Nuvigil] Allergy (Verified 03/07/18 19:15) azithromycin [From Zithromax] Allergy (Verified 03/07/18 19:15) throat closed-HEART PALPITATIONS latex Allergy (Verified 03/07/18 19:15) hives during exam metronidazole [From Flagyl] Allergy (Verified 03/07/18 19:15) sob throat closes anaphalactic Metronidazole HCl [From Flagyl] Allergy (Verified 03/07/18 19:15) HEART PALPITATIONS Penicillins Allergy (Verified 03/07/18 19:15) "I DON'T KNOW" ziprasidone HCl [From Geodon] Allergy (Verified 03/07/18 19:15) hallucinate/confusion ziprasidone mesylate [From Geodon] Allergy (Verified 03/07/18 19:15) HEART PALPITATIONS adhesive tape Allergy (Uncoded 03/07/18 19:15) Rash Home Medications: Atorvastatin Calcium 40 mg PO HS 02/17/18 [History] Fluticasone/Vilanterol [Breo Ellipta 100-25 Mcg INH] 2 each IH DAILY 02/17/18 [ History] Levothyroxine Sodium [Synthroid] 200 mg PO DAILY 02/17/18 [History] Lisinopril 5 mg [Zestril 5 MG] 5 mg PO DAILY 02/17/18 [History] Prazosin HCl 5 mg PO HS 02/17/18 [History] Prochlorperazine Maleate 5 mg PO Q6H PRN 02/17/18 [History] Tiotropium [place] [Spiriva Respimat] 2.5 mcg IH DAILY 02/17/18 [History] Trazodone HCl [Desyrel] 200 mg PO HS 02/17/18 [History] Vilazodone Hydrochloride [Viibryd] 40 mg PO DAILY 02/17/18 [History] clonazePAM [Clonazepam] 2 mg PO HS 02/17/18 [History] lamoTRIgine [Lamictal] 300 mg PO DAILY 02/17/18 [History] raNITIdine HCl [Ranitidine HCl] 300 mg PO HS 02/17/18 [History] Hx Tetanus, Diphtheria Vaccination/Date Given: Yes Hx Influenza Vaccination/Date Given: Yes Hx Pneumococcal Vaccination/Date Given: Yes Immunizations Up to Date: (unknown) - Review of Systems Constitutional: No Symptoms Eyes: Vision Changes Abdominal/Gastrointestinal: Nausea Neurological: Dizziness, Headache All Other Systems: Reviewed and Negative - Past Medical History Pertinent Past Medical History: Yes Neurological History: Migraines ENT History: Cataracts Cardiac History: Congestive Heart Failure, Myocardial Infarction ([place]), Other Respiratory History: Asthma, COPD Endocrine Medical History: Hypothyroidism Musculoskeletal History: Arthritis GI Medical History: Hemorrhoids History: No Pertinent History Psycho-Social History: Bipolar Female Reproductive Disorders: Endometriosis Other Medical History: Tachycardia - Past Surgical History Past Surgical History: Yes Neuro Surgical History: No Pertinent History Cardiac: Cardiac Catheterization Respiratory: No Pertinent History Gastrointestinal: Cholecystectomy Genitourinary: No Pertinent History Musculoskeletal: Other Female Surgical History: Section, Hysterectomy Other Surgical History: thyroidectomy. L knee scope. 2 BLADDER SURGERYS left knee replacement - Social History Smoking Status: Current every day smoker How long have you smoked: 23 Exposure to second hand smoke: No Alcohol Use: Socially Drug Use: marijuana Patient Lives Alone: No Significant Family History: no pertinent family hx - Female History Hx Now: No - Nursing Vital Signs Nursing Vital Signs: Initial Vital Signs Temperature 97.7 F 03/26/18 20:30 Pulse Rate 78 03/26/18 20:30 Respiratory Rate 18 03/26/18 20:30 Blood Pressure 103/59 03/26/18 20:30 O2 Sat by Pulse Oximetry 98 03/26/18 20:30 Pain Scale Pain Intensity 5 - Physical Exam General Appearance: no apparent distress Eye Exam: PERRL/EOMI, eyes nml inspection Ears, Nose, Throat Exam: normal ENT inspection, pharynx normal Neck Exam: normal inspection, non-tender, supple, No carotid bruit, No JVD Respiratory Exam: normal breath sounds, lungs clear, airway intact, No chest tenderness Cardiovascular Exam: regular rate/rhythm, normal heart sounds, normal peripheral pulses, No murmur Gastrointestinal/Abdominal Exam: soft, normal bowel sounds, No tenderness, No distention, No mass, No guarding Back Exam: normal inspection, No CVA tenderness Extremity Exam: normal inspection Mental 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, 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: normal speech, PERRL Coordination/Gait Exam: normal gait Motor/Sensory Exam: no motor deficit Skin Exam: normal color, warm, dry, No rash Lymphatic Exam: No adenopathy SpO2 Interpretation: normal SpO2: 98 Oxygen Delivery: Room Air - Course Nursing assessment & vital signs reviewed: Yes EKG Interpreted by Me: RATE (73/min), NORMAL AXIS, NORMAL INTERVALS, Non- specific ST Changes, Other (unchanged from 10/04/17) - Radiology Exams Chest X-ray Interpretation: Reviewed by me, No Pneumonia - CT Exams Head CT Interpretation: Negative, Tele-radiologist Report Ordered Tests: Active Orders 24 hr Category Date Time Status Accucheck STAT Care 03/26/18 20:48 Active Operations Controller STAT Care 03/26/18 20:49 Active EKG-ER Only STAT Care 03/26/18 20:48 Active IV Insertion STAT Care 03/26/18 20:48 Active Orthostatic Vital Signs STAT Care 03/26/18 20:48 Active CHEST 1 VIEW (PORTABLE) Stat Exams 03/26/18 20:48 Completed HEAD WITHOUT CONTRAST [CT] Stat Exams 03/26/18 20:49 Completed CBC W DIFF Stat Lab 03/26/18 21:15 Completed CK-Creatinine Phosphokinase Stat Lab 03/26/18 21:15 Completed CMP Stat Lab 03/26/18 21:15 Completed CULTURE,URINE Stat Lab 03/26/18 21:00 Received Erythrocyte Sedimentation Rate Stat Lab 03/26/18 21:15 Completed PT INR [PROTIME WITH INR] Stat Lab 03/26/18 21:15 Completed TROPONIN Q3H Lab 03/26/18 21:30 Completed TROPONIN Q3H Lab 03/27/18 00:00 Ordered TROPONIN Q3H Lab 03/27/18 03:00 Ordered TROPONIN Q3H Lab 03/27/18 06:00 Ordered TROPONIN Q3H Lab 03/27/18 09:00 Ordered UA W/ MICROSCOPIC Stat Lab 03/26/18 21:00 Completed Urine Triage Profile Stat Lab 03/26/18 21:00 Completed Medication Summary Generic Name Dose Route Start Last Admin Trade Name Vidhi PRN Reason Stop Dose Admin Aspirin 325 mg 03/27/18 22:41 Ecotrin 325 Mg PO 03/27/18 22:42 NOW ONE Ceftriaxone Sodium/Dextrose 1 g in 50 mls @ 100 mls/hr 03/26/18 22:41 Rocephin 1 Gm-D5w 50 Ml Bag IV 03/26/18 23:10 STAT STA Discontinued Medications Generic Name Dose Route Start Last Admin Trade Name Vidhi PRN Reason Stop Dose Admin Diphenhydramine HCl 25 mg 03/26/18 20:51 03/26/18 21:14 Benadryl 50 Mg/Ml IV 03/26/18 20:52 25 mg STAT ONE Administration Diphenhydramine HCl Confirm 03/26/18 21:08 Benadryl 50 Mg/Ml Administered 03/26/18 21:09 Dose 50 mg .ROUTE .STK-MED ONE Sodium Chloride 1,000 mls @ 999 mls/hr 03/26/18 20:48 03/26/18 22:28 Sodium Chloride 0.9% 1000 Ml IV 03/26/18 21:48 Infused .Q1H1M STA Infusion Sodium Chloride Confirm 03/26/18 21:08 Sodium Chloride 0.9% 1000 Ml Administered 03/26/18 21:09 Dose 1,000 mls @ ud .ROUTE .STK-MED ONE Ketorolac Tromethamine 30 mg 03/26/18 20:51 03/26/18 21:15 Toradol 30 Mg Injection IV 03/26/18 20:52 30 mg STAT ONE Administration Ketorolac Tromethamine Confirm 03/26/18 21:08 Toradol 30 Mg Injection Administered 03/26/18 21:09 Dose 30 mg .ROUTE .STK-MED ONE Metoclopramide HCl 10 mg 03/26/18 20:51 03/26/18 21:14 Reglan 10 Mg/2 Ml IV 03/26/18 20:52 10 mg STAT ONE Administration Metoclopramide HCl Confirm 03/26/18 21:08 Reglan 10 Mg/2 Ml Administered 03/26/18 21:09 Dose 10 mg .ROUTE .STK-MED ONE Lab/Rad Data: Laboratory Result Diagrams 03/26/18 21:15 03/26/18 21:15 Laboratory Results 03/26/18 03/26/18 03/26/18 Range/Units 21:30 21:15 21:15 WBC (4.0-10.5) K/mm3 RBC (4.1-5.4) M/mm3 Hgb (12.0-16.0) gm/dl Hct (35-47) % MCV (78-100) fl MCH (26-32) pg MCHC (32-36) g/dl RDW (11.5-14.0) % Plt Count (150-450) K/mm3 MPV (6-9.5) fl Gran % (36.0-66.0) % Eos # (Auto) (0-0.5) Absolute Lymphs (auto) (1.0-4.6) Absolute Monos (auto) (0.0-1.3) Lymphocytes % (24.0-44.0) % Monocytes % (0.0-12.0) % Eosinophils % (0.00-5.0) % Basophils % (0.0-0.4) % Absolute Granulocytes (1.4-6.9) Basophils # (0-0.4) ESR (0-20) mm/hr PT 11.9 (9.95-12.35) SECONDS INR 1.02 (0.8-3.0) Sodium (137-145) mmol/L Potassium (3.5-5.1) mmol/L Chloride (98-107) mmol/L Carbon Dioxide (22-30) mmol/L Anion Gap (5-15) MEQ/L BUN (7-17) mg/dL Creatinine (0.52-1.04) mg/dL Estimated GFR ML/MIN Glucose (74-106) mg/dL Calcium (8.4-10.2) mg/dL Total Bilirubin (0.2-1.3) mg/dL AST (14-36) U/L ALT (0-35) U/L Alkaline Phosphatase (38-126) U/L Creatine Kinase 64 (30-135) U/L Troponin I < 0.012 (0.000-0.034) ng/mL Serum Total Protein (6.3-8.2) g/dL Albumin (3.5-5.0) g/dL Ur Collection Type Urine Color (YELLOW) Urine Appearance (CLEAR) Urine pH (5-6) Ur Specific [place] (1.005-1.025) Urine Protein (Negative) Urine Ketones (NEGATIVE) Urine Blood (0-5) Sung/ul Urine Nitrite (NEGATIVE) Urine Bilirubin (NEGATIVE) Urine Urobilinogen (0-1) mg/dL Ur Leukocyte Esterase (NEGATIVE) Urine Microscopic RBC (0-2) /HPF Urine Microscopic WBC (0-5) /HPF Ur Epithelial Cells (FEW) /HPF Urine Bacteria (NEGATIVE) /HPF Urine Culture Reflexed (NO) Urine Glucose (NEGATIVE) mg/dL Urine Opiates Level (NEGATIVE) Ur Methadone (NEGATIVE) Urine Barbiturates (NEGATIVE) Ur Phencyclidine (PCP) (NEGATIVE) Urine Amphetamine (NEGATIVE) U Benzodiazepine Level (NEGATIVE) Urine Cocaine (NEGATIVE) Urine Marijuana (THC) (NEGATIVE) Specimen Received 03/26/18 03/26/18 03/26/18 Range/Units 21:15 21:15 21:15 WBC 9.6 (4.0-10.5) K/mm3 RBC 4.49 (4.1-5.4) M/mm3 Hgb 12.9 (12.0-16.0) gm/dl Hct 39.6 (35-47) % MCV 88.2 (78-100) fl MCH 28.7 (26-32) pg MCHC 32.6 (32-36) g/dl RDW 13.6 (11.5-14.0) % Plt Count 288 (150-450) K/mm3 MPV 10.6 H (6-9.5) fl Gran % 61.0 (36.0-66.0) % Eos # (Auto) 0.11 (0-0.5) Absolute Lymphs (auto) 2.69 (1.0-4.6) Absolute Monos (auto) 0.88 (0.0-1.3) Lymphocytes % 28.1 (24.0-44.0) % Monocytes % 9.2 (0.0-12.0) % Eosinophils % 1.1 (0.00-5.0) % Basophils % 0.6 (0.0-0.4) % Absolute Granulocytes 5.83 (1.4-6.9) Basophils # 0.06 (0-0.4) ESR 27 H (0-20) mm/hr PT (9.95-12.35) SECONDS INR (0.8-3.0) Sodium 140 (137-145) mmol/L Potassium 3.6 (3.5-5.1) mmol/L Chloride 104 (98-107) mmol/L Carbon Dioxide 26 (22-30) mmol/L Anion Gap 14.1 (5-15) MEQ/L BUN 26 H (7-17) mg/dL Creatinine 1.82 H (0.52-1.04) mg/dL Estimated GFR 30.7 ML/MIN Glucose 96 (74-106) mg/dL Calcium 9.5 (8.4-10.2) mg/dL Total Bilirubin 0.20 (0.2-1.3) mg/dL AST 23 (14-36) U/L ALT 19 (0-35) U/L Alkaline Phosphatase 86 (38-126) U/L Creatine Kinase (30-135) U/L Troponin I (0.000-0.034) ng/mL Serum Total Protein 7.0 (6.3-8.2) g/dL Albumin 4.2 (3.5-5.0) g/dL Ur Collection Type Urine Color (YELLOW) Urine Appearance (CLEAR) Urine pH (5-6) Ur Specific [place] (1.005-1.025) Urine Protein (Negative) Urine Ketones (NEGATIVE) Urine Blood (0-5) Sung/ul Urine Nitrite (NEGATIVE) Urine Bilirubin (NEGATIVE) Urine Urobilinogen (0-1) mg/dL Ur Leukocyte Esterase (NEGATIVE) Urine Microscopic RBC (0-2) /HPF Urine Microscopic WBC (0-5) /HPF Ur Epithelial Cells (FEW) /HPF Urine Bacteria (NEGATIVE) /HPF Urine Culture Reflexed (NO) Urine Glucose (NEGATIVE) mg/dL Urine Opiates Level (NEGATIVE) Ur Methadone (NEGATIVE) Urine Barbiturates (NEGATIVE) Ur Phencyclidine (PCP) (NEGATIVE) Urine Amphetamine (NEGATIVE) U Benzodiazepine Level (NEGATIVE) Urine Cocaine (NEGATIVE) Urine Marijuana (THC) (NEGATIVE) Specimen Received 03/26/18 03/26/18 Range/Units 21:00 21:00 WBC (4.0-10.5) K/mm3 RBC (4.1-5.4) M/mm3 Hgb (12.0-16.0) gm/dl Hct (35-47) % MCV (78-100) fl MCH (26-32) pg MCHC (32-36) g/dl RDW (11.5-14.0) % Plt Count (150-450) K/mm3 MPV (6-9.5) fl Gran % (36.0-66.0) % Eos # (Auto) (0-0.5) Absolute Lymphs (auto) (1.0-4.6) Absolute Monos (auto) (0.0-1.3) Lymphocytes % (24.0-44.0) % Monocytes % (0.0-12.0) % Eosinophils % (0.00-5.0) % Basophils % (0.0-0.4) % Absolute Granulocytes (1.4-6.9) Basophils # (0-0.4) ESR (0-20) mm/hr PT (9.95-12.35) SECONDS INR (0.8-3.0) Sodium (137-145) mmol/L Potassium (3.5-5.1) mmol/L Chloride (98-107) mmol/L Carbon Dioxide (22-30) mmol/L Anion Gap (5-15) MEQ/L BUN (7-17) mg/dL Creatinine (0.52-1.04) mg/dL Estimated GFR ML/MIN Glucose (74-106) mg/dL Calcium (8.4-10.2) mg/dL Total Bilirubin (0.2-1.3) mg/dL AST (14-36) U/L ALT (0-35) U/L Alkaline Phosphatase (38-126) U/L Creatine Kinase (30-135) U/L Troponin I (0.000-0.034) ng/mL Serum Total Protein (6.3-8.2) g/dL Albumin (3.5-5.0) g/dL Ur Collection Type CCMS Urine Color YELLOW (YELLOW) Urine Appearance CLOUDY (CLEAR) Urine pH 5.0 (5-6) Ur Specific [place] 1.025 (1.005-1.025) Urine Protein 30 (Negative) Urine Ketones NEGATIVE (NEGATIVE) Urine Blood TRACE NON-HEM (0-5) Sung/ul Urine Nitrite NEGATIVE (NEGATIVE) Urine Bilirubin NEGATIVE (NEGATIVE) Urine Urobilinogen NORMAL (0-1) mg/dL Ur Leukocyte Esterase 2+ (NEGATIVE) Urine Microscopic RBC 2-5 (0-2) /HPF Urine Microscopic WBC >100 (0-5) /HPF Ur Epithelial Cells MODERATE (FEW) /HPF Urine Bacteria MODERATE (NEGATIVE) /HPF Urine Culture Reflexed YES (NO) Urine Glucose NEGATIVE (NEGATIVE) mg/dL Urine Opiates Level NEGATIVE (NEGATIVE) Ur Methadone NEGATIVE (NEGATIVE) Urine Barbiturates NEGATIVE (NEGATIVE) Ur Phencyclidine (PCP) NEGATIVE (NEGATIVE) Urine Amphetamine POSITIVE (NEGATIVE) U Benzodiazepine Level NEGATIVE (NEGATIVE) Urine Cocaine NEGATIVE (NEGATIVE) Urine Marijuana (THC) NEGATIVE (NEGATIVE) Specimen Received 03-26-18 2115 - Progress Progress: improved Air Movement: good Progress Note: 03/26/18 22:[address] Andrew, reviewed our results, and discussed patient's current condition, he agred to admit her for observation, with Dehydration, UTI, I informed patient and her , they agreed. Discussed with : Kamran Will see patient in: hospital (observation) Counseled pt/family regarding: lab results, diagnosis, rad results - Departure Time of Disposition: 22:47 Departure Disposition: Observation Clinical Impression: Dehydration UTI (urinary tract infection) Qualifiers: Urinary tract infection type: site unspecified Hematuria presence: without hematuria Qualified Code(s): N39.0 - Urinary tract infection, site not specified Condition: Stable Critical Care Time: No Referrals: MARLIN URBINA [Primary Care Provider] -
[2018-03-26] MEDS ORDERED: Reglan 10 MG/2 ML ONE (21:08)
[2018-03-26] MEDS ORDERED: BENADRYL 50 MG/ML ONE (21:08)
[2018-03-26] MEDS ORDERED: Sodium Chloride 0.9% 1000 ML 1,000 ML ONE (21:08)
[2018-03-26] MEDS ORDERED: TORAdol 30 mg Injection ONE (21:08)
[2018-03-26 21:17] LABS: Appearance CLOUDY (CLEAR); Bilirubin NEGATIVE (NEGATIVE); Blood TRACE NON-HEM Ery/ul (0-5); Glucose NEGATIVE (NEGATIVE); Ketones NEGATIVE (NEGATIVE); Leukocyte Esterase 2+ (NEGATIVE); Nitrite NEGATIVE (NEGATIVE); Protein,Urine Dip 30 (Negative); Specific Gravity 1.025 (1.005-1.025); Urobilinogen NORMAL mg/dL (0-1)
[2018-03-26 21:18] LABS: Bacteria MODERATE /HPF (NEGATIVE); Barbiturate,Urine NEGATIVE (NEGATIVE); Benzodiazepine,Urine NEGATIVE (NEGATIVE); Cocaine,Urine NEGATIVE (NEGATIVE); Epithelial Cells MODERATE /HPF (FEW); Methadone,Urine NEGATIVE (NEGATIVE); Opiate,Urine NEGATIVE (NEGATIVE); PCP,Urine NEGATIVE (NEGATIVE); THC,Urine NEGATIVE (NEGATIVE); WBC >100 /HPF (0-5)
[2018-03-26 21:22] LABS: BASOPHIL % 0.6 % (0.0-0.4); Basophil (Absolute #) 0.06 (0-0.4); Eosinophil % 1.1 % (0.00-5.0); Eosinophil (Absolute #) 0.11 (0-0.5); Granulocyte Absolute (ANC) 5.83 (1.4-6.9); Hematocrit 39.6 % (35-47); Hemoglobin 12.9 gm/dl (12.0-16.0); Lymphocyte (Absolute #) 2.69 (1.0-4.6); Lymphocytes % 28.1 % (24.0-44.0); Mean Cell Volume 88.2 fl (78-100); Mean Corpuscular Hemoglobin 28.7 pg (26-32); Mean Corpuscular Hgb Concent. 32.6 g/dl (32-36); Mean Platelet Volume 10.6 fl (6-9.5); Monocyte (Absolute #) 0.88 (0.0-1.3); Monocytes % 9.2 % (0.0-12.0); Platelet Count 288 K/mm3 (150-450); Red Blood Count 4.49 M/mm3 (4.1-5.4); Red Cell Distribution Width 13.6 % (11.5-14.0); White Blood Count 9.6 K/mm3 (4.0-10.5)
[2018-03-26 21:41] LABS: INR 1.02 (0.8-3.0)
[2018-03-26 21:45] LABS: ALBUMIN 4.2 g/dL (3.5-5.0); ANION GAP 14.1 MEQ/L (5-15); BILIRUBIN,TOTAL 0.2 mg/dL (0.2-1.3); Calcium 9.5 mg/dL (8.4-10.2); Creatinine 1 1.82 mg/dL (0.52-1.04); Potassium 3.6 mmol/L (3.5-5.1)
[2018-03-26 21:49] LABS: Amphetamine,Urine POSITIVE (NEGATIVE)
--- NOTE | 2018-03-26 22:30 | XRAY ---
Indication: Headache. Multiple contiguous axial images obtained through the head without contrast. Comparison: October 04, 2017. Again normal appearing brain parenchyma, ventricles, and bony calvarium. Visualized paranasal sinuses and mastoid air cells are clear. Impression: Stable normal CT head without contrast exam. CTDI 69.38
--- NOTE | 2018-03-26 22:32 | XRAY ---
Indication: Headache. Comparison: October 04, 2017. Portable chest is clear. Heart and mediastinal structures within normal limits. Bony thorax intact again with old left rib and old left clavicle fractures. Impression: Stable nonacute chest.
[2018-03-26] MEDS ORDERED: ROCEPHIN 1 Gm-D5w 50 ml Bag** 1 G/50 ML IVPB IV STA (22:41)
[2018-03-26] MEDS ORDERED: Zofran 4 MG/2 ML VIAL IV PRN (22:48)
[2018-03-26] MEDS ORDERED: NovoLIN R SQ PRN (22:48)
[2018-03-26] MEDS ORDERED: ROCEPHIN 1 Gm-D5w 50 ml Bag** 1 G/50 ML IVPB IV ONE (22:48)
[2018-03-26] MEDS ORDERED: Ecotrin 325 MG ONE (22:51)
[2018-03-26] MEDS ORDERED: Sodium Chloride 0.9% 1000 ML 1,000 ML IV SCH (23:00)
[2018-03-27 06:17] LABS: BASOPHIL % 1.1 % (0.0-0.4); Basophil (Absolute #) 0.08 (0-0.4); Eosinophil % 2.4 % (0.00-5.0); Eosinophil (Absolute #) 0.18 (0-0.5); Granulocyte Absolute (ANC) 3.73 (1.4-6.9); Granulocytes % 50.4 % (36.0-66.0); Hematocrit 36.9 % (35-47); Lymphocyte (Absolute #) 2.71 (1.0-4.6); Lymphocytes % 36.6 % (24.0-44.0); Mean Cell Volume 88.9 fl (78-100); Mean Corpuscular Hemoglobin 28.9 pg (26-32); Mean Corpuscular Hgb Concent. 32.5 g/dl (32-36); Mean Platelet Volume 10.5 fl (6-9.5); Monocytes % 9.5 % (0.0-12.0); Platelet Count 253 K/mm3 (150-450); Red Blood Count 4.15 M/mm3 (4.1-5.4); Red Cell Distribution Width 13.7 % (11.5-14.0); White Blood Count 7.4 K/mm3 (4.0-10.5)
[2018-03-27 06:39] LABS: Calcium 8.5 mg/dL (8.4-10.2); Creatinine 1 1.46 mg/dL (0.52-1.04); Potassium 3.4 mmol/L (3.5-5.1)
[2018-03-27] MEDS ORDERED: Spiriva 18 Mcg/Cap Inhaler IH SCH (07:00)
[2018-03-27] MEDS ORDERED: Advair Hfa 115/21 Common canister IH SCH (07:00)
[2018-03-27 08:09] VITALS: BP 122/61; PULSE 81; O2SAT 95
--- NOTE | 2018-03-27 08:27 | PCM.DCORD ---
- Discharge Discharge Date: 03/27/18 Prescriptions: New Sulfamethoxazole/Trimethoprim [Bactrim Ds Tablet] 1 each PO BID 7 Days #14 tablet Continue raNITIdine HCl [Ranitidine HCl] 300 mg PO HS Vilazodone Hydrochloride [Viibryd] 40 mg PO DAILY Lisinopril 5 mg [Zestril 5 MG] 5 mg PO DAILY Trazodone HCl [Desyrel] 200 mg PO HS lamoTRIgine [Lamictal] 300 mg PO HS Prazosin HCl 5 mg PO HS clonazePAM [Clonazepam] 2 mg PO HS Levothyroxine Sodium [Synthroid] 200 mg PO BREAKFAST Atorvastatin Calcium 40 mg PO HS Fluticasone/Vilanterol [Breo Ellipta 100-25 Mcg INH] 2 each IH DAILY Tiotropium [place] [Spiriva Respimat] 2.5 mcg IH DAILY Fenofibrate Nanocrystallized [Tricor] 1 tab PO HS Dextroamphetamine/Amphetamine [Adderall 20 mg Tablet] 40 mg PO BID Metformin HCl Xr 500 mg [Glucophage XR 500 MG] 500 mg PO BID Additional Instructions: Call Dr Urbina office on to follow up on Urine Culture results Follow up with: MARLIN URBINA [Primary Care Provider] - 1 Week
[2018-03-27] MEDS ORDERED: ROCEPHIN 1 Gm-D5w 50 ml Bag** 1 G/50 ML IVPB IV SCH (22:00)
[2018-03-27] MEDS ORDERED: Ecotrin 325 MG PO ONE (22:41)
--- NOTE | 2018-04-01 07:53 | SSS ---
DISCHARGE DIAGNOSES: 1) HEAT EXHAUSTION. 2) URINARY TRACT INFECTION. HISTORY: The patient is a 57 year-old white female who apparently was out all day yesterday cutting her grass and working in the yard. She suddenly became heated and dizzy. She was feeling bad with nausea but without vomiting. She presented herself to the emergency room and was subsequently admitted to the hospital for IV fluid hydration. The patient was also incidentally found to have greater than white blood cells per high power field and was treated with IV Rocephin for apparent urinary tract infection. The patient's recent history is complicated as she has been seeing physicians in and out of the hospital for urinary tract infection and other problems with chronic diarrhea over the past six months with frequent visits. She has a pending visit to see tie in machine operator for some scope procedures to be done for the chronic diarrhea in [place]. She also has an appointment for hand surgery to be performed and her second hand surgery for a plate to be put in her thumb. PAST MEDICAL HISTORY: Significant for history of migraine headache and having blindness for classical migraine. She has apparent problems with hypothyroid, asthma, chronic obstructive pulmonary disease. She previously had myocardial infarction, endometriosis. PAST SURGICAL HISTORY: Cardiac catheterization. Cholecystectomy. section. Hysterectomy. Thyroidectomy. Knee scope x2. Two bladder surgeries. Left knee replacement. HOME MEDICATIONS: Pravastatin, Breo Ellipta, Synthroid, Zestril, prochlorperazine, Spiriva, Desyrel, Viibryd, clonazepam, Lamictal, ranitidine. She is apparently also on Adderall at 40 mg b.i.d., clonazepam 2 mg at night. ALLERGIES: METRONIDAZOLE, PENICILLIN, GEODON, ADHESIVE TAPE, NUVIGIL, ZITHROMAX, LATEX. PHYSICAL EXAMINATION: Revealed a well nourished, well developed 57 year-old white female currently in no obvious distress. Her vital signs on admission showed a temperature 97.7F, pulse 78, respiratory rate 18, blood pressure 103/59. O2 saturation 98% on room air. HEENT: Normocephalic, atraumatic. Pupils equal round reactive to light. Extraocular movements intact. Oropharynx is slightly dry. NECK: Supple without lymphadenopathy, thyromegaly or JVD. CHEST: Clear to auscultation with good air movement bilaterally. HEART: Regular rate and rhythm without murmurs, rubs or gallops. ABDOMEN: Soft without palpable masses. EXTREMITIES: Without clubbing, cyanosis or edema. NEUROLOGIC: The patient is alert and oriented x3 with no focal deficits noted. LAB DATA AND TESTS: From the emergency room showed greater than 100 white blood cells per high power field however the nitrite was negative. There was moderate bacteria. The white count was 9,600, hemoglobin 12.9, PLT count 288,000. International normalized ratio was normal. Her urine drug screen was positive for amphetamines. The patient is known to be Adderall. Interestingly it came up negative for benzodiazepines although she is admittedly on Klonopin. CPK 64. Her glucose was 96, BUN 26, creatinine 1.82. Electrolytes were normal. Liver enzymes were normal. She had repeat of troponins which were all less than 0.012. Her sed rate was noted to be elevated at 27. HOSPITAL COURSE: The patient is admitted to the medicine partida and given IV fluids and IV Rocephin for apparent urinary tract infection. She had a culture set up. Her repeat blood work showed her glucose to be 96, BUN 30, creatinine down to 1.46. The patient was feeling up to going home by the morning of 03/27/2018. She had taken clear liquids well and wished to go home. We will send her home on Bactrim DS twice daily for possible urinary tract infection with cultures pending. She is instructed to get the results from her urine culture on Thursday as it should be available at that time. She is instructed to stay out of the heat and in air conditioning over the next couple of days and push fluids orally. She will return to her usual medications and have follow up with her usual primary care provider which is Christie Morales in the next coming week.
== END 2018-03-27 09:40 | disposition home or self-care (01) ==
LOC: ED 20:16 → MED SURG 23:36
PROVIDERS: ADMIT Family Medicine; ATTEND Family Medicine
DX: T67.3XXA Heat exhaustion, anhydrotic, initial encounter (principal); E86.0 Dehydration; N39.0 Urinary tract infection, site not specified; E03.9 Hypothyroidism, unspecified; J45.909 Unspecified asthma, uncomplicated; J44.9 Chronic obstructive pulmonary disease, unspecified; I25.2 Old myocardial infarction; N80.9 Endometriosis, unspecified; Z79.899 Other long term (current) drug therapy
CPT/HCPCS: 36000; 36415; 70450; 71045; 80048; 80053; 80307; 81000; 82550; 82962; 84484; 85025; 85610; 85652; 87077; 87086; 87186; 93005; 93041; 93268; 94640; 94760; 96360; 96374; 99285; J0696; J1200; J1885; A9270-GY; G0378

== ENCOUNTER 2019-01-15 08:54 | Emergency (ER) | payer OTHER | END 2019-01-15 10:42 | disposition home or self-care (01) | LOC: ED 08:54 ==

== ENCOUNTER 2019-04-05 16:43 | Emergency (ER) | payer OTHER ==
[2019-04-05] MEDS ORDERED: Compazine 10 MG/2 ML IV ONE (17:08)
[2019-04-05] MEDS ORDERED: BENADRYL 50 MG/ML IV ONE (17:08)
--- NOTE | 2019-04-05 17:14 | ERPHSYRPT ---
- History of Present Illness Time Seen by Provider: 04/05/19 17:01 Source: patient Exam Limitations: no limitations Patient Subjective Stated Complaint: Pt states that she has had a headache for 3 days, N&V, scattered rash on bilateral legs Triage Nursing Assessment: Pt walked into the ER with sunglasses on due to a migraine for the past 3 days, no difficulties with strength, vitals wnl, N&V, skin normal and dry, Physician History: 58-year-old white female with history of migraines, congestive heart failure, cataracts, hyperlipidemia, asthma, bronchitis, COPD, diabetes type 2 Patient arrives with complaint of headache frontal and posterior head symptoms for 3 days positive nausea positive photophobia patient has not had a fever she does feel like she is somewhat sore in the throat she also has a streak-like rash on her lower extremities and her arms. Past medical history includes migraines, congestive heart failure, cataracts, hyperlipidemia, asthma, bronchitis, COPD, emphysema, pneumonia, diabetes type 2 , hypothyroidism, arthritis, Past surgical history includes cardiac catheter, cholecystectomy, , hysterectomy, thyroidectomy, left knee scope, 2 bladder surgeries, left knee replacement. Social history positive tobacco use Timing/Duration: day(s) (33 days) Severity: moderate Modifying Factors: Improves With: nothing Associated Symptoms: nausea, vomiting, headaches, No abdominal pain, No shortness of breath, No heartburn, No diaphoresis, No cough, No chills, No chest pain, No fever, No loss of appetite, No malaise, No rash, No syncope, No seizure Allergies/Adverse Reactions: armodafinil [From Nuvigil] Allergy (Verified 04/05/19 16:59) azithromycin [From Zithromax] Allergy (Verified 04/05/19 16:59) throat closed-HEART PALPITATIONS latex Allergy (Verified 04/05/19 16:59) hives during exam metronidazole [From Flagyl] Allergy (Verified 04/05/19 16:59) sob throat closes anaphalactic Metronidazole HCl [From Flagyl] Allergy (Verified 04/05/19 16:59) HEART PALPITATIONS Penicillins Allergy (Verified 04/05/19 16:59) "I DON'T KNOW" ziprasidone HCl [From Geodon] Allergy (Verified 04/05/19 16:59) hallucinate/confusion ziprasidone mesylate [From Geodon] Allergy (Verified 04/05/19 16:59) HEART PALPITATIONS adhesive tape Allergy (Uncoded 04/05/19 16:59) Rash Home Medications: Atorvastatin Calcium 40 mg PO HS 02/17/18 [History] Levothyroxine Sodium [Synthroid] 200 mg PO BREAKFAST 02/17/18 [History] Lisinopril 5 mg [Zestril 5 MG] 5 mg PO DAILY 02/17/18 [History] Tiotropium [place] [Spiriva Respimat] 2.5 mcg IH DAILY 02/17/18 [History] Trazodone HCl [Desyrel] 300 mg PO HS 02/17/18 [History] clonazePAM [Clonazepam] 2 mg PO HS 02/17/18 [History] lamoTRIgine [Lamictal] 300 mg PO HS 02/17/18 [History] raNITIdine HCl [Ranitidine HCl] 300 mg PO HS 02/17/18 [History] Dextroamphetamine/Amphetamine [Adderall 20 mg Tablet] 40 mg PO BID 03/27/18 [ History] Metformin HCl Xr 500 mg [Glucophage XR 500 MG] 500 mg PO BID 03/27/18 [ History] Escitalopram Oxalate 10 mg [Lexapro 10 MG] 20 mg PO DAILY 01/15/19 [History] Topiramate [Trokendi Xr] 300 mg PO HS 01/15/19 [History] Aspirin EC 81 mg [Ecotrin 81 mg] 81 mg PO DAILY 04/05/19 [History] Buspirone HCl [Buspar] 15 mg PO UD 04/05/19 [History] Cholecalciferol (Vitamin D3) [Vitamin D3] 2,000 unit PO DAILY 04/05/19 [History] Liraglutide [Victoza 2-Jass] 1.8 mg SQ DAILY 04/05/19 [History] Hx Tetanus, Diphtheria Vaccination/Date Given: Yes Hx Influenza Vaccination/Date Given: Yes Hx Pneumococcal Vaccination/Date Given: Yes - Review of Systems Constitutional: No Fever, No Chills Eyes: No Symptoms Ears, Nose, & Throat: No Symptoms Respiratory: No Cough, No Dyspnea Cardiac: No Chest Pain, No Edema, No Syncope Abdominal/Gastrointestinal: No Abdominal Pain, No Nausea, No Vomiting, No Diarrhea Genitourinary Symptoms: No Dysuria Musculoskeletal: No Back Pain, No Neck Pain Skin: Rash (streak-like rash resembling poison shae on extremities) Neurological: Headache Psychological: No Symptoms Endocrine: No Symptoms All Other Systems: Reviewed and Negative - Past Medical History Pertinent Past Medical History: Yes Neurological History: Migraines ENT History: Cataracts Cardiac History: Congestive Heart Failure, High Cholesterol Respiratory History: Asthma, Bronchitis, COPD, Emphysema, Pneumonia Endocrine Medical History: Diabetes Type II, Hypothyroidism Musculoskeletal History: Arthritis, Fractures GI Medical History: Hemorrhoids History: No Pertinent History Psycho-Social History: Bipolar Female Reproductive Disorders: Endometriosis Other Medical History: Hypotension is past. Frequent fractures in LE. - Past Surgical History Past Surgical History: Yes Neuro Surgical History: No Pertinent History Cardiac: Cardiac Catheterization Respiratory: No Pertinent History Gastrointestinal: Cholecystectomy Genitourinary: No Pertinent History Musculoskeletal: Other Female Surgical History: Section, Hysterectomy Other Surgical History: thyroidectomy. L knee scope. 2 BLADDER SURGERYS left knee replacement - Social History Smoking Status: Current every day smoker How long have you smoked: 30 years Exposure to second hand smoke: Yes Alcohol Use: Socially Drug Use: none Patient Lives Alone: No Significant Family History: no pertinent family hx - Female History Hx Now: No - Nursing Vital Signs Nursing Vital Signs: Initial Vital Signs Temperature 97.6 F 04/05/19 16:48 Pulse Rate 65 04/05/19 16:48 Blood Pressure 132/74 04/05/19 16:48 O2 Sat by Pulse Oximetry 95 04/05/19 16:48 Pain Scale Pain Intensity 0 - Physical Exam General Appearance: no apparent distress, alert Eye Exam: PERRL/EOMI, eyes nml inspection Ears, Nose, Throat Exam: normal ENT inspection, TMs normal, pharynx normal, moist mucous membranes Neck Exam: normal inspection, non-tender, supple, full range of motion Respiratory Exam: normal breath sounds, lungs clear, No respiratory distress Cardiovascular Exam: regular rate/rhythm, normal heart sounds, normal peripheral pulses, capillary refill <2 sec Gastrointestinal/Abdomen Exam: soft, normal bowel sounds, No tenderness, No mass Back Exam: normal inspection, normal range of motion, No CVA tenderness, No vertebral tenderness Extremity Exam: normal inspection, normal range of motion, pelvis stable Neurologic Exam: alert, oriented x 3, 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, 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 as tested, normal mood/affect, nml cerebellar function, nml station & gait, sensation nml, No motor deficits Skin Exam: other (streak-like rash sparse on lower extremities) SpO2 Interpretation: normal (95%) SpO2: 95 - Course Nursing assessment & vital signs reviewed: Yes Ordered Tests: Active Orders 24 hr Category Date Time Status Accucheck STAT Care 04/05/19 17:09 Active IV Insertion STAT Care 04/05/19 17:09 Active Medication Summary Discontinued Medications Generic Name Dose Route Start Last Admin Trade Name Vidhi PRN Reason Stop Dose Admin Diphenhydramine HCl 25 mg 04/05/19 17:08 04/05/19 17:40 Benadryl 50 Mg/Ml IV 04/05/19 17:09 25 mg STAT ONE Administration Diphenhydramine HCl Confirm 04/05/19 17:16 Benadryl 50 Mg/Ml Administered 04/05/19 17:17 Dose 50 mg .ROUTE .STK-MED ONE Prochlorperazine Edisylate 10 mg 04/05/19 17:08 04/05/19 17:40 Compazine 10 Mg/2 Ml IV 04/05/19 17:09 10 mg STAT ONE Administration Prochlorperazine Edisylate Confirm 04/05/19 17:16 Compazine 10 Mg/2 Ml Administered 04/05/19 17:17 Dose 10 mg .ROUTE .STK-MED ONE Lab/Rad Data: Laboratory Results 04/05/19 Range/Units 17:30 Group A Strep Antibody NEGATIVE (NEGATIVE) - Progress Progress: improved Progress Note: 04/05/19 18:24 Patient markedly improved after Compazine 10 mg Benadryl 25 mg IV. Patient does have a contact dermatitis will place her on tapering dose of prednisone she has been warned to watch her blood sugars. Patient is to take Benadryl 25-50 mg orally every 6 hours as needed for itching. - Departure Departure Disposition: Home Clinical Impression: Migraine headache Qualifiers: Migraine type: unspecified Status migrainosus presence: without status migrainosus Intractability: not intractable Qualified Code(s): G43.909 - Migraine, unspecified, not intractable, without status migrainosus Contact dermatitis Qualifiers: Contact dermatitis type: unspecified Contact dermatitis trigger: unspecified trigger Qualified Code(s): L25.9 - Unspecified contact dermatitis, unspecified cause Condition: Fair Critical Care Time: No Referrals: EMA MALAVE [Primary Care Provider] - Additional Instructions: Return home. Rest in a dark quiet room. Followup with your family if symptoms recurrent. Return for acute distress or for severe symptoms. Tapering prednisone as directed. Benadryl 25-50 mg every 6 hours as needed for 2-3 days. Followup with your family symptoms worse, no better in 48 hours, or persist longer than one week.
[2019-04-05] MEDS ORDERED: Compazine 10 MG/2 ML ONE (17:16)
[2019-04-05] MEDS ORDERED: BENADRYL 50 MG/ML ONE (17:16)
[2019-04-05 18:27] VITALS: O2SAT 95
[2019-04-05 18:44] VITALS: BP 112/63; PULSE 63
== END 2019-04-05 18:45 | disposition home or self-care (01) ==
LOC: ED 16:43
DX: G43.909 Migraine, unspecified, not intractable, without status migrainosus (principal); L25.9 Unspecified contact dermatitis, unspecified cause; R11.2 Nausea with vomiting, unspecified; I50.9 Heart failure, unspecified; E78.5 Hyperlipidemia, unspecified; E11.9 Type 2 diabetes mellitus without complications; J44.1 Chronic obstructive pulmonary disease with (acute) exacerbation
CPT/HCPCS: 36000; 82962; 87651; 96374; 96375; 99284; J1200

== ENCOUNTER 2019-04-29 18:23 | Emergency (ER) | payer OTHER ==
[2019-04-29] MEDS ORDERED: Zofran 4 MG/2 ML VIAL IV ONE (18:51)
[2019-04-29] MEDS ORDERED: PROTONIX 40 MG IV IV ONE (18:51)
[2019-04-29] MEDS ORDERED: Sodium Chloride 0.9% 1000 ML 1,000 ML IV SCH (19:00)
[2019-04-29] MEDS ORDERED: BENADRYL 50 MG/ML IV ONE (19:00)
--- NOTE | 2019-04-29 19:00 | ERPHSYRPT ---
- History of Present Illness Time Seen by Provider: 04/29/19 18:40 Historian: patient Exam Limitations: clinical condition Patient Subjective Stated Complaint: STATES HAS BEEN VOMITING FOR A LONG TIME AND IT MAKES HER THROAT FEEL TIGHT. Triage Nursing Assessment: AMBULATED TO ROOM PER SELF. SKIN W/D, COLOR NORMAL. RESP EASY. ABD SOFT. VOICE CLEAR. DENIES SOB. Physician History: PATIENT WITH A HISTORY OF TYPE 1 DIABETES, COPD, CHF, MIGRAINES AND BIPOLAR DISORDER COMPLAINS OF FREQUENT EMESIS, AND EPIGASTRIC PAIN FOR WEEKS. FEELS LIKE HER THROAT IS TIGHT. DENIES DIARRHEA, URINARY SYMPTOMS, FEVER, DYSPNEA OR CHEST PAIN. Timing/Duration: week(s) Activities at Onset: none Quality: sharpness Abdominal Pain Onset Location: epigastric Pain Radiation: chest Severity of Pain-Max: moderate Severity of Pain-Current: moderate Modifying Factors: Improves With: vomiting Associated Symptoms: nausea, vomiting Previous symptoms: same symptoms as today Allergies/Adverse Reactions: armodafinil [From Nuvigil] Allergy (Verified 04/29/19 18:33) azithromycin [From Zithromax] Allergy (Verified 04/29/19 18:33) throat closed-HEART PALPITATIONS cephalexin [From Keflex] Allergy (Verified 04/29/19 18:34) latex Allergy (Verified 04/29/19 18:33) hives during exam metronidazole [From Flagyl] Allergy (Verified 04/29/19 18:33) sob throat closes anaphalactic Metronidazole HCl [From Flagyl] Allergy (Verified 04/29/19 18:33) HEART PALPITATIONS Penicillins Allergy (Verified 04/29/19 18:33) "I DON'T KNOW" ziprasidone HCl [From Geodon] Allergy (Verified 04/29/19 18:33) hallucinate/confusion ziprasidone mesylate [From Geodon] Allergy (Verified 04/29/19 18:33) HEART PALPITATIONS adhesive tape Allergy (Uncoded 04/05/19 16:59) Rash Home Medications: Atorvastatin Calcium 40 mg PO HS 02/17/18 [History] Levothyroxine Sodium [Synthroid] 200 mg PO BREAKFAST 02/17/18 [History] Lisinopril 5 mg [Zestril 5 MG] 5 mg PO DAILY 02/17/18 [History] Tiotropium [place] [Spiriva Respimat] 2.5 mcg IH DAILY 02/17/18 [History] Trazodone HCl [Desyrel] 300 mg PO HS 02/17/18 [History] clonazePAM [Clonazepam] 2 mg PO HS 02/17/18 [History] lamoTRIgine [Lamictal] 300 mg PO HS 02/17/18 [History] raNITIdine HCl [Ranitidine HCl] 300 mg PO HS 02/17/18 [History] Dextroamphetamine/Amphetamine [Adderall 20 mg Tablet] 40 mg PO BID 03/27/18 [ History] Metformin HCl Xr 500 mg [Glucophage XR 500 MG] 500 mg PO BID 03/27/18 [ History] Escitalopram Oxalate 10 mg [Lexapro 10 MG] 20 mg PO DAILY 01/15/19 [History] Topiramate [Trokendi Xr] 300 mg PO HS 01/15/19 [History] Aspirin EC 81 mg [Ecotrin 81 mg] 81 mg PO DAILY 04/05/19 [History] Buspirone HCl [Buspar] 15 mg PO UD 04/05/19 [History] Cholecalciferol (Vitamin D3) [Vitamin D3] 2,000 unit PO DAILY 04/05/19 [History] Liraglutide [Victoza 2-Jass] 1.8 mg SQ DAILY 04/05/19 [History] Hx Tetanus, Diphtheria Vaccination/Date Given: No Hx Influenza Vaccination/Date Given: Yes Hx Pneumococcal Vaccination/Date Given: Yes - Review of Systems Constitutional: No Fever, No Chills Eyes: No Symptoms Ears, Nose, & Throat: No Symptoms Respiratory: No Symptoms, No Cough, No Dyspnea Cardiac: No Symptoms, No Chest Pain, No Edema, No Syncope Abdominal/Gastrointestinal: Abdominal Pain, Nausea, Vomiting, No Diarrhea Genitourinary Symptoms: No Symptoms, No Dysuria Musculoskeletal: No Symptoms, No Back Pain, No Neck Pain Skin: No Symptoms, No Rash Neurological: No Symptoms, No Dizziness, No Focal Weakness, No Sensory Changes Psychological: No Symptoms Endocrine: No Symptoms All Other Systems: Reviewed and Negative - Past Medical History Pertinent Past Medical History: Yes Neurological History: Migraines ENT History: Cataracts Cardiac History: Congestive Heart Failure, High Cholesterol Respiratory History: Asthma, Bronchitis, COPD, Emphysema, Pneumonia Endocrine Medical History: Diabetes Type II, Hypothyroidism Musculoskeletal History: Arthritis, Fractures GI Medical History: Hemorrhoids History: No Pertinent History Psycho-Social History: Bipolar Female Reproductive Disorders: Endometriosis Other Medical History: Hypotension is past. Frequent fractures in LE. - Past Surgical History Past Surgical History: Yes Neuro Surgical History: No Pertinent History Cardiac: Cardiac Catheterization Respiratory: No Pertinent History Gastrointestinal: Cholecystectomy Genitourinary: No Pertinent History Musculoskeletal: Other Female Surgical History: Section, Hysterectomy Other Surgical History: thyroidectomy. L knee scope. 2 BLADDER SURGERYS left knee replacement - Social History Smoking Status: Current every day smoker How long have you smoked: 31 Exposure to second hand smoke: No Alcohol Use: Socially Drug Use: none Patient Lives Alone: No Significant Family History: no pertinent family hx - Female History Hx Now: No - Nursing Vital Signs Nursing Vital Signs: Initial Vital Signs Temperature 97.5 F 04/29/19 18:25 Pulse Rate 78 04/29/19 18:25 Respiratory Rate 18 04/29/19 18:25 Blood Pressure 104/68 04/29/19 18:25 O2 Sat by Pulse Oximetry 95 04/29/19 18:25 Pain Scale Pain Intensity 9 - Physical Exam General Appearance: no apparent distress, alert, other (NO HOARSENESS OR STRIDOR ) Eye Exam: PERRL/EOMI, eyes nml inspection Ears, Nose, Throat Exam: normal ENT inspection, pharynx normal, moist mucous membranes Neck Exam: normal inspection, non-tender, supple, full range of motion Respiratory Exam: normal breath sounds, lungs clear, No respiratory distress Cardiovascular Exam: regular rate/rhythm, normal heart sounds Gastrointestinal/Abdomen Exam: soft, normal bowel sounds, tenderness (MARKED EPIGASTRIC TENDERNESS), No mass Back Exam: normal inspection, normal range of motion, No CVA tenderness, No vertebral tenderness Extremity Exam: normal inspection, normal range of motion, pelvis stable Neurologic Exam: alert, oriented x 3, cooperative, normal mood/affect, nml cerebellar function, sensation nml, No motor deficits Skin Exam: normal color, warm, dry SpO2 Interpretation: normal SpO2: 95 - Course EKG Interpreted by Me: RATE, Sinus Rhythm, NORMAL AXIS (SINUS TACHY RATE 93) - CT Exams Abdomen/Pelvis CT Interpretation: Tele-radiologist Report (NO ACUTE CHANGES, NORMAL APPENDIX) Ordered Tests: Active Orders 24 hr Category Date Time Status EKG-ER Only STAT Care 04/29/19 18:51 Active IV Insertion STAT Care 04/29/19 18:51 Active AMYLASE Stat Lab 04/29/19 19:00 Completed CBC W DIFF Stat Lab 04/29/19 19:00 Completed CMP Stat Lab 04/29/19 19:00 Completed CULTURE,URINE Stat Lab 04/29/19 19:38 Received D-DIMER QUANTITATION Stat Lab 04/29/19 19:00 Completed LIPASE Stat Lab 04/29/19 19:00 Completed PROTIME WITH INR Stat Lab 04/29/19 19:00 Completed TROPONIN Q3H Lab 04/29/19 19:00 Completed TROPONIN Q3H Lab 04/30/19 01:00 Ordered TROPONIN Q3H Lab 04/30/19 04:00 Ordered TROPONIN Q3H Lab 04/30/19 07:00 Ordered UA W/RFX UR CULTURE Stat Lab 04/29/19 19:38 Completed Medication Summary Generic Name Dose Route Start Last Admin Trade Name Freq PRN Reason Stop Dose Admin Sodium Chloride 1,000 mls @ 200 mls/hr 04/29/19 19:00 04/29/19 19:28 Sodium Chloride 0.9% 1000 Ml IV 05/29/19 18:59 200 mls/hr .Q5H URIEL Administration Discontinued Medications Generic Name Dose Route Start Last Admin Trade Name Freq PRN Reason Stop Dose Admin Diphenhydramine HCl 25 mg 04/29/19 19:00 04/29/19 19:31 Benadryl 50 Mg/Ml IV 04/29/19 19:01 25 mg STAT ONE Administration Diphenhydramine HCl Confirm 04/29/19 19:16 Benadryl 50 Mg/Ml Administered 04/29/19 19:17 Dose 50 mg .ROUTE .STK-MED ONE Famotidine Confirm 04/29/19 19:16 Pepcid 20 Mg Vial Administered 04/29/19 19:17 Dose 20 mg IV .STK-MED ONE Famotidine 20 mg 04/29/19 19:19 04/29/19 19:33 Pepcid 20 Mg Vial IV 04/29/19 19:20 20 mg STAT ONE Administration Fentanyl Citrate 50 mcg 04/29/19 19:52 04/29/19 20:16 Sublimaze 100 Mcg/2 Ml IV 04/29/19 19:53 50 mcg STAT ONE Administration Fentanyl Citrate Confirm 04/29/19 20:11 Sublimaze 100 Mcg/2 Ml Administered 04/29/19 20:12 Dose 100 mcg .ROUTE .STK-MED ONE Levofloxacin/Dextrose 500 mg in 100 mls @ 100 mls/hr 04/29/19 19:53 04/29/19 20:17 Levofloxacin 500mg/100ml D5w IV 04/29/19 20:52 100 mls/hr STAT STA 100 mls/hr Administration Levofloxacin/Dextrose Confirm 04/29/19 20:12 Levofloxacin 500mg/100ml D5w Administered 04/29/19 20:13 Dose 500 mg in 100 mls @ ud IV .STK-MED ONE Levofloxacin/Dextrose Confirm 04/29/19 21:20 Levofloxacin 500mg/100ml D5w Administered 04/29/19 21:21 Dose 500 mg in 100 mls @ ud IV .STK-MED ONE Ondansetron HCl 4 mg 04/29/19 18:51 04/29/19 19:27 Zofran 4 Mg/2 Ml Vial IV 04/29/19 18:52 4 mg STAT ONE Administration Ondansetron HCl Confirm 04/29/19 19:16 Zofran 4 Mg/2 Ml Vial Administered 04/29/19 19:17 Dose 4 mg .ROUTE .STK-MED ONE Pantoprazole Sodium 40 mg 04/29/19 18:51 04/29/19 19:32 Protonix 40 Mg Iv IV 04/29/19 18:52 Not Given STAT ONE Potassium Chloride 40 meq 04/29/19 19:21 04/29/19 19:41 Klor Con 10 Meq PO 04/29/19 19:22 40 meq STAT ONE Administration Potassium Chloride Confirm 04/29/19 19:36 Klor Con 10 Meq Administered 04/29/19 19:37 Dose 40 meq PO .STK-MED ONE Lab/Rad Data: Laboratory Result Diagrams 04/29/19 19:00 04/29/19 19:00 Laboratory Results 04/29/19 04/29/19 04/29/19 Range/Units 19:38 19:00 19:00 WBC (4.0-10.5) K/mm3 RBC (4.1-5.4) M/mm3 Hgb (12.0-16.0) gm/dl Hct (35-47) % MCV (78-100) fl MCH (26-32) pg MCHC (32-36) g/dl RDW (11.5-14.0) % Plt Count (150-450) K/mm3 MPV (6-9.5) fl Gran % (36.0-66.0) % Eos # (Auto) (0-0.5) Absolute Lymphs (auto) (1.0-4.6) Absolute Monos (auto) (0.0-1.3) Lymphocytes % (24.0-44.0) % Monocytes % (0.0-12.0) % Eosinophils % (0.00-5.0) % Basophils % (0.0-0.4) % Absolute Granulocytes (1.4-6.9) Basophils # (0-0.4) PT (9.95-12.35) SECONDS INR (0.8-3.0) D-Dimer 331 (215-500) ng/mL Sodium (137-145) mmol/L Potassium (3.5-5.1) mmol/L Chloride (98-107) mmol/L Carbon Dioxide (22-30) mmol/L Anion Gap (5-15) MEQ/L BUN (7-17) mg/dL Creatinine (0.52-1.04) mg/dL Estimated GFR ML/MIN Glucose (74-106) mg/dL Calcium (8.4-10.2) mg/dL Total Bilirubin (0.2-1.3) mg/dL AST (14-36) U/L ALT (0-35) U/L Alkaline Phosphatase (38-126) U/L Troponin I < 0.012 (0.000-0.034) ng/mL Serum Total Protein (6.3-8.2) g/dL Albumin (3.5-5.0) g/dL Amylase (30-110) U/L Lipase (23-300) U/L Urine Color YELLOW (YELLOW) Urine Appearance CLEAR (CLEAR) Urine pH 5.0 (5-6) Ur Specific [place] 1.019 (1.005-1.025) Urine Protein NEGATIVE (Negative) Urine Ketones NEGATIVE (NEGATIVE) Urine Blood SMALL (0-5) Sung/ul Urine Nitrite NEGATIVE (NEGATIVE) Urine Bilirubin NEGATIVE (NEGATIVE) Urine Urobilinogen NEGATIVE (0-1) mg/dL Ur Leukocyte Esterase TRACE (NEGATIVE) Urine WBC (Auto) 6-10 (0-5) /HPF Urine RBC (Auto) 0-2 (0-2) /HPF U Epithel Cells (Auto) RARE (FEW) /HPF Urine Bacteria (Auto) NONE SEEN (NEGATIVE) /HPF Other Casts (Auto) NEGATIVE (NEGATIVE) /LPF Urine Mucus (Auto) MODERATE (NEGATIVE) /HPF Urine Culture Reflexed YES (NO) Urine Glucose NEGATIVE (NEGATIVE) mg/dL 04/29/19 04/29/19 04/29/19 Range/Units 19:00 19:00 19:00 WBC 6.0 (4.0-10.5) K/mm3 RBC 4.28 (4.1-5.4) M/mm3 Hgb 12.6 (12.0-16.0) gm/dl Hct 39.2 (35-47) % MCV 91.6 (78-100) fl MCH 29.4 (26-32) pg MCHC 32.1 (32-36) g/dl RDW 14.1 H (11.5-14.0) % Plt Count 227 (150-450) K/mm3 MPV 10.1 H (6-9.5) fl Gran % 45.6 (36.0-66.0) % Eos # (Auto) 0.14 (0-0.5) Absolute Lymphs (auto) 2.49 (1.0-4.6) Absolute Monos (auto) 0.60 (0.0-1.3) Lymphocytes % 41.4 (24.0-44.0) % Monocytes % 10.0 (0.0-12.0) % Eosinophils % 2.3 (0.00-5.0) % Basophils % 0.7 (0.0-0.4) % Absolute Granulocytes 2.74 (1.4-6.9) Basophils # 0.04 (0-0.4) PT 11.8 (9.95-12.35) SECONDS INR 1.04 (0.8-3.0) D-Dimer (215-500) ng/mL Sodium 141 (137-145) mmol/L Potassium 3.2 L (3.5-5.1) mmol/L Chloride 106 (98-107) mmol/L Carbon Dioxide 24 (22-30) mmol/L Anion Gap 13.8 (5-15) MEQ/L BUN 11 (7-17) mg/dL Creatinine 0.96 (0.52-1.04) mg/dL Estimated GFR > 60.0 ML/MIN Glucose 94 (74-106) mg/dL Calcium 9.1 (8.4-10.2) mg/dL Total Bilirubin 0.30 (0.2-1.3) mg/dL AST 25 (14-36) U/L ALT 20 (0-35) U/L Alkaline Phosphatase 84 (38-126) U/L Troponin I (0.000-0.034) ng/mL Serum Total Protein 7.3 (6.3-8.2) g/dL Albumin 4.3 (3.5-5.0) g/dL Amylase 53 (30-110) U/L Lipase 74 (23-300) U/L Urine Color (YELLOW) Urine Appearance (CLEAR) Urine pH (5-6) Ur Specific [place] (1.005-1.025) Urine Protein (Negative) Urine Ketones (NEGATIVE) Urine Blood (0-5) Sung/ul Urine Nitrite (NEGATIVE) Urine Bilirubin (NEGATIVE) Urine Urobilinogen (0-1) mg/dL Ur Leukocyte Esterase (NEGATIVE) Urine WBC (Auto) (0-5) /HPF Urine RBC (Auto) (0-2) /HPF U Epithel Cells (Auto) (FEW) /HPF Urine Bacteria (Auto) (NEGATIVE) /HPF Other Casts (Auto) (NEGATIVE) /LPF Urine Mucus (Auto) (NEGATIVE) /HPF Urine Culture Reflexed (NO) Urine Glucose (NEGATIVE) mg/dL - Progress Progress Note: 04/29/19 18:59 IV NORMAL SALINE 200ML/HR, ZOFRAN 4MG, PROTONIX 40MG IV, BENADRYL 25MG IV 04/29/19 22:39, ALL LABS REVIEWED AND IN NORMAL LIMITS EXCEPT K-3.2, UA WBC 6-10 , AFTER 1 SET OF BLOOD CULTURES ADMINISTERED LEVAQUIN 500MG IVPB Counseled pt/family regarding: lab results, diagnosis, need for follow-up, rad results - Departure Departure Disposition: Home Clinical Impression: ABDOMINAL PAIN, URINARY TRACT INFECTION Condition: Stable Critical Care Time: No Referrals: EMA MALAVE [Primary Care Provider] - Additional Instructions: BEGIN ANTIBIOTIC LEVAQUIN 500MG DAILY FOR 10 DAYS. ZOFRAN 4MG EVERY 4 HOURS FOR NAUSEA. BEGIN CARAFATE 1GM 1 HOUR BEFORE MEALS AND AT BEDTIME. KLOR CON 20MEQ DAILY FOR 10 DAYS. CONSULT YOUR PRIMARY CARE PROVIDER FOR REFERRAL FOR UPPER ENDOSCOPY. Prescriptions: Ondansetron ODT 4 MG [Zofran Odt 4 mg] 4 mg PO Q4H PRN PRN #10 tab.rapdis PRN Reason: Nausea Levofloxacin [Levaquin] 500 mg PO DAILY #10 tablet Potassium Chloride [Klor-Con M20] 20 meq PO DAILY #10 tab.er.prt Sucralfate 1 gm [Carafate 1 GM] 1 g PO ACHS #120 tablet
[2019-04-29 19:02] LABS: BASOPHIL % 0.7 % (0.0-0.4); Basophil (Absolute #) 0.04 (0-0.4); Eosinophil % 2.3 % (0.00-5.0); Eosinophil (Absolute #) 0.14 (0-0.5); Granulocyte Absolute (ANC) 2.74 (1.4-6.9); Granulocytes % 45.6 % (36.0-66.0); Hematocrit 39.2 % (35-47); Hemoglobin 12.6 gm/dl (12.0-16.0); Lymphocyte (Absolute #) 2.49 (1.0-4.6); Lymphocytes % 41.4 % (24.0-44.0); Mean Cell Volume 91.6 fl (78-100); Mean Corpuscular Hemoglobin 29.4 pg (26-32); Mean Corpuscular Hgb Concent. 32.1 g/dl (32-36); Mean Platelet Volume 10.1 fl (6-9.5); Platelet Count 227 K/mm3 (150-450); Red Blood Count 4.28 M/mm3 (4.1-5.4); Red Cell Distribution Width 14.1 % (11.5-14.0)
[2019-04-29 19:08] LABS: INR 1.04 (0.8-3.0); PROTIME 11.8 SECONDS (9.95-12.35)
[2019-04-29 19:13] LABS: ALBUMIN 4.3 g/dL (3.5-5.0); ALKALINE PHOSPHATASE 84 U/L (38-126); AMYLASE 53 U/L (30-110); ANION GAP 13.8 MEQ/L (5-15); BLOOD UREA NITROGEN 11 mg/dL (7-17); CHLORIDE 106 mmol/L (98-107); Calcium 9.1 mg/dL (8.4-10.2); Carbon Dioxide 24 mmol/L (22-30); Creatinine 1 0.96 mg/dL (0.52-1.04); Glucose 94 mg/dL (74-106); Potassium 3.2 mmol/L (3.5-5.1); SGOT/AST 25 U/L (14-36); SGPT/ALT 20 U/L (0-35); SODIUM 141 mmol/L (137-145); Total Protein 7.3 g/dL (6.3-8.2)
[2019-04-29] MEDS ORDERED: Zofran 4 MG/2 ML VIAL ONE (19:16)
[2019-04-29] MEDS ORDERED: BENADRYL 50 MG/ML ONE (19:16)
[2019-04-29] MEDS ORDERED: Pepcid 20 MG VIAL IV ONE ×2 (19:16→19:19)
[2019-04-29] MEDS ORDERED: Sodium Chloride 0.9% 1000 ML 1,000 ML ONE (19:16)
[2019-04-29] MEDS ORDERED: Klor Con 10 MEQ PO ONE ×2 (19:21→19:36)
[2019-04-29 19:46] LABS: Appearance CLEAR (CLEAR); Bacteria NONE SEEN /HPF (NEGATIVE); Bilirubin NEGATIVE (NEGATIVE); Blood SMALL Ery/ul (0-5); Epithelial Cells RARE /HPF (FEW); Glucose NEGATIVE (NEGATIVE); Ketones NEGATIVE (NEGATIVE); Leukocyte Esterase TRACE (NEGATIVE); Mucus MODERATE /HPF (NEGATIVE); Nitrite NEGATIVE (NEGATIVE); Protein,Urine Dip NEGATIVE (Negative); RBC 0-2 /HPF (0-2); Specific Gravity 1.019 (1.005-1.025); Urobilinogen NEGATIVE mg/dL (0-1)
[2019-04-29] MEDS ORDERED: SUBLIMAZE 100 MCG/2 ML IV ONE (19:52)
[2019-04-29] MEDS ORDERED: Levofloxacin 500MG/100ML D5W 500 MG/100 ML BAG IV STA (19:53)
[2019-04-29] MEDS ORDERED: SUBLIMAZE 100 MCG/2 ML ONE (20:11)
[2019-04-29] MEDS ORDERED: Levofloxacin 500MG/100ML D5W 0 MG/0 ML BAG IV ONE (20:12)
[2019-04-29 20:57] VITALS: BP 155/83
[2019-04-29] MEDS ORDERED: Levofloxacin 500MG/100ML D5W 500 MG/100 ML BAG IV ONE (21:20)
[2019-04-29 22:46] VITALS: O2SAT 95
[2019-04-29 22:57] VITALS: PULSE 70
--- NOTE | 2019-05-02 08:44 | XRAY ---
Indication: Epigastric pain and emesis. Multiple contiguous axial images obtained through the abdomen and pelvis using 80 cc Isovue 370 contrast only. Comparison: March 07, 2018. Lung bases again demonstrates minimal lingular subsegmental atelectasis/scarring. No infiltrate or effusion. Heart is not enlarged. Incidental right infrahilar and paraesophageal calcified nodes. Distal esophagus now demonstrates circumferential wall thickening, possible esophagitis. Noncontrasted stomach and bowel loops appear nonobstructed. Normal appendix. No free fluid/air. Again previous cholecystectomy and hysterectomy. Remaining liver, pancreas, spleen, adrenal glands, kidneys, ureters, and bladder appear unremarkable. Stable minimal aortoiliac calcifications without AAA. No pathologic retroperitoneal lymphadenopathy. Osseous structures intact again with mild degenerative changes. No ventral or inguinal hernias. Impression: 1. New distal esophageal wall thickening. Rule out esophagitis. 2. Incidental distal paraesophageal and right infrahilar calcified nodes favoring old granulomatous disease. 3. Remaining CT abdomen/pelvis with contrast exam is negative. Comment: Preliminary interpretation was made by [facility] who does not report incidental esophageal wall thickening. CTDI 23.68
== END 2019-04-29 23:46 | disposition home or self-care (01) ==
LOC: ED 18:23
DX: R10.9 Unspecified abdominal pain (principal); N39.0 Urinary tract infection, site not specified
CPT/HCPCS: 36000; 36415; 74177; 80053; 81001; 82150; 83690; 84484; 85025; 85379; 85610; 87086; 93005; 96360; 96361; 96365; 96374; 96375; 99285; J1200; J1956; J2405; J3010; A9270-GY

== ENCOUNTER 2019-07-10 10:41 | Emergency (ER) | payer OTHER ==
[2019-07-10 10:51] VITALS: BP 131/92; PULSE 86; O2SAT 96
--- NOTE | 2019-07-10 11:03 | ERPHSYRPT ---
- History of Present Illness Time Seen by Provider: 07/10/19 10:59 Source: patient Exam Limitations: no limitations Patient Subjective Stated Complaint: Pt broke some picture frames yesterday and thinks she stepped on a piece of glass with her left foot Triage Nursing Assessment: Pt walked into the ER, vitals wnl, pulses normal, denies pain when not standing on left foot but has pain 10/10 when standing, no other issues at this time Physician History: Pt broke some picture frames yesterday and thinks she stepped on a piece of glass with her left foot Occurred: yesterday Quality: constant Lower Extremities Pain: foot: left Modifying Factors: Improves With: nothing Allergies/Adverse Reactions: armodafinil [From Nuvigil] Allergy (Verified 07/10/19 10:52) azithromycin [From Zithromax] Allergy (Verified 07/10/19 10:52) throat closed-HEART PALPITATIONS cephalexin [From Keflex] Allergy (Verified 07/10/19 10:52) latex Allergy (Verified 07/10/19 10:52) hives during exam metronidazole [From Flagyl] Allergy (Verified 07/10/19 10:52) sob throat closes anaphalactic Metronidazole HCl [From Flagyl] Allergy (Verified 07/10/19 10:52) HEART PALPITATIONS modafinil [From Provigil] Allergy (Verified 07/10/19 10:52) Penicillins Allergy (Verified 07/10/19 10:52) "I DON'T KNOW" ziprasidone HCl [From Geodon] Allergy (Verified 07/10/19 10:52) hallucinate/confusion ziprasidone mesylate [From Geodon] Allergy (Verified 07/10/19 10:52) HEART PALPITATIONS adhesive tape Allergy (Uncoded 07/10/19 10:52) Rash Home Medications: Atorvastatin Calcium 40 mg PO HS 02/17/18 [History] Levothyroxine Sodium [Synthroid] 200 mg PO BREAKFAST 02/17/18 [History] Lisinopril 5 mg [Zestril 5 MG] 5 mg PO DAILY 02/17/18 [History] Tiotropium [place] [Spiriva Respimat] 2.5 mcg IH DAILY 02/17/18 [History] Trazodone HCl [Desyrel] 300 mg PO HS 02/17/18 [History] clonazePAM [Clonazepam] 2 mg PO HS 02/17/18 [History] lamoTRIgine [Lamictal] 300 mg PO HS 02/17/18 [History] raNITIdine HCl [Ranitidine HCl] 300 mg PO HS 02/17/18 [History] Dextroamphetamine/Amphetamine [Adderall 20 mg Tablet] 40 mg PO BID 03/27/18 [ History] Metformin HCl Xr 500 mg [Glucophage XR 500 MG] 500 mg PO BID 03/27/18 [ History] Escitalopram Oxalate 10 mg [Lexapro 10 MG] 20 mg PO DAILY 01/15/19 [History] Topiramate [Trokendi Xr] 300 mg PO HS 01/15/19 [History] Aspirin EC 81 mg [Ecotrin 81 mg] 81 mg PO DAILY 04/05/19 [History] Buspirone HCl [Buspar] 15 mg PO UD 04/05/19 [History] Cholecalciferol (Vitamin D3) [Vitamin D3] 2,000 unit PO DAILY 04/05/19 [History] Liraglutide [Victoza 2-Jass] 1.8 mg SQ DAILY 04/05/19 [History] Hx Tetanus, Diphtheria Vaccination/Date Given: No (couple of years ago) Hx Influenza Vaccination/Date Given: Yes Hx Pneumococcal Vaccination/Date Given: Yes - Review of Systems Constitutional: No Symptoms Eyes: No Symptoms Ears, Nose, & Throat: No Symptoms Respiratory: No Symptoms Cardiac: No Symptoms Abdominal/Gastrointestinal: No Symptoms Genitourinary Symptoms: No Symptoms Musculoskeletal: No Symptoms Skin: Other (glass foreign body in left foot) Neurological: No Symptoms Psychological: No Symptoms Endocrine: No Symptoms - Past Medical History Pertinent Past Medical History: Yes Neurological History: Migraines ENT History: Cataracts Cardiac History: Congestive Heart Failure, High Cholesterol Respiratory History: Asthma, Bronchitis, COPD, Emphysema, Pneumonia Endocrine Medical History: Diabetes Type II, Hypothyroidism Musculoskeletal History: Arthritis, Fractures GI Medical History: Hemorrhoids History: No Pertinent History Psycho-Social History: Bipolar Female Reproductive Disorders: Endometriosis Other Medical History: Hypotension is past. Frequent fractures in LE. - Past Surgical History Past Surgical History: Yes Neuro Surgical History: No Pertinent History Cardiac: Cardiac Catheterization Respiratory: No Pertinent History Gastrointestinal: Cholecystectomy Genitourinary: No Pertinent History Musculoskeletal: Other Female Surgical History: Section, Hysterectomy Other Surgical History: thyroidectomy. L knee scope. 2 BLADDER [employer]YS left knee replacement - Social History Smoking Status: Current every day smoker How long have you smoked: 31 Exposure to second hand smoke: Yes Alcohol Use: Socially Drug Use: none Patient Lives Alone: No Significant Family History: no pertinent family hx - Female History Hx Now: No - Nursing Vital Signs Nursing Vital Signs: Initial Vital Signs Temperature 98.3 F 07/10/19 10:46 Pulse Rate 86 07/10/19 10:46 Blood Pressure 131/92 07/10/19 10:46 O2 Sat by Pulse Oximetry 96 07/10/19 10:46 Pain Scale Pain Intensity 0 - Physical Exam General Appearance: no apparent distress Eyes, Ears, Nose, Throat Exam: normal ENT inspection Neck Exam: normal inspection Cardiovascular/Respiratory Exam: chest non-tender Gastrointestinal/Abdominal Exam: non-tender Back Exam: normal inspection Foot Exam: left foot: soft tissue tenderness (small tiny glass foreign body visible) SpO2: 96 - Course Nursing assessment & vital signs reviewed: Yes - Progress Progress: improved Progress Note: 07/10/19 11:02 Small tiny fraction of glass removed from her foot, her pain almost gone, doing better Counseled pt/family regarding: diagnosis, need for follow-up - Departure Departure Disposition: Home Clinical Impression: Foreign body in foot, left Qualifiers: Encounter type: initial encounter Qualified Code(s): S90.852A - Superficial foreign body, left foot, initial encounter Condition: Stable Critical Care Time: No Referrals: EMA MALAVE [Primary Care Provider] - Instructions: Removal of Foreign Body in Skin Additional Instructions: NELLIE ARIAS AMAURI was seen on 07/10/19 n the Emergency Room. At that time you were treated for an emergent condition, during your visit Laboratory, Radiology and/or other procedures may have been ordered. It is very important that you follow-up with your Primary Care Physician EMA MALAVE within the next 24-48 hours to review your Emergency Room visit and the final results of testing that was ordered. Some test results such as Urine Cultures, Blood Cultures, and other cultures if ordered will not be finalized for 24-48 hours. If you do not have a Primary Care Provider please call the medical records department at [phone] ext [phone] to obtain a copy of your results or you may sign into our patient portal to obtain these results by visiting us @ [email or web address] and completing the following steps: 1. Click on the Patient Portal link 2. Click the Patient Self Enrollment Link to complete the enrollment form and entering your 3. Once the enrollment form is completed you will receive an email with a temporary ID and password at the email address you provided. 4. Next choose a user name and password. Your user name must be at least 4 characters long and your password must be at least 4 characters long. 5. Choose a security question from the list and provide your answer to the question. If you already have signed into the Health Portal you may access your Health Care Information 25/05 by the following steps: 1. Login to our website @ [email or web address] 2. Enter your original user name and password. FAQS The [facility] Health Portal is an online tool that contains your Lab Results, Radiology Reports, Visit History, Discharge Instructions and Health Summary Lab and Radiology Results will not be available for 72 hours on the portal. The Portal is a secure site, passwords are encryted and URLs are re-written so they cannot be copied and pasted. You and authorized family members are the only ones who can access your Portal. Also there is a timeout feature that protects your information if you leave the Portal page open. If you have technical difficulty please use the Contact Us link on the page this will allow you to submit any questions you have regarding the Portal or you may contact the Medical Record Department at [phone]. Discharge/Care Plan ZACHARY ARIASELLEN AMAURI was seen on 07/10/19 in the Emergency Room. The patient was counseled regarding Diagnosis,Lab results, Imaging studies, need for follow up and when to return to the Emergency Room. Prescriptions given: Discharge Note I have spoken with the patient and/or caregivers. I have explained the patient' s condition, diagnosis and treatment plan based on the information available to me at this time. I have answered the patient's and/or caregiver's questions and addressed any concerns. The patient and/or caregivers have as good understanding of the patient's diagnosis, condition and treatment plan as can be expected at this point. The vital signs have been stable. The patient's condition is stable and appropriate for discharge from the emergency department. The patient will pursue further outpatient evaluation with the primary care physician or other designated or consulting physician as outlined in the discharge instructions. The patient and/or caregivers are agreeable to this plan of care and follow-up instructions have been explained in detail. The patient and/or caregivers have received these instruction. The patient/and or caregivers are aware that any significant change in condition or worsening of symptoms should prompt an immediate return to this or the closest emergency department or call 911.
== END 2019-07-10 11:26 | disposition home or self-care (01) ==
LOC: ED 10:41
DX: S90.852A Superficial foreign body, left foot, initial encounter (principal)
CPT/HCPCS: 99283

== ENCOUNTER 2020-05-25 13:45 | Emergency (ER) | payer OTHER ==
[2020-05-25] MEDS ORDERED: Sodium Chloride 0.9% 1000 ML 1,000 ML IV STA (15:05)
--- NOTE | 2020-05-25 15:15 | ERPHSYRPT ---
- History of Present Illness Time Seen by Provider: 05/25/20 15:00 Source: patient, family Physician History: 59 years old female with history of bipolar disorder, hypertension, hypothyroidism, congestive heart failure presented in the ER with chief complaint of generalized weakness fatigue and aches pains going on for the last 3 to 4 weeks and since yesterday is having dizziness and lightheadedness. Patient reports every time she tries to get up and ambulate she cannot walk in a straight line and ends up hitting the doors. She has a tendency to fall and fell multiple times in the past. Denies any loss of consciousness. Denies any focal numbness tingling or weakness. Denies any difficulty speech or visual symptoms. She also has a mild headache. Patient also reports 30 pound weight loss in the last few weeks. Denies any fever or chills. She has a productive cough going on for last 2 to 3 weeks but no shortness of breath. Denies any chest pain or palpitations. Timing/Duration: week(s), intermittent, worse Severity: moderate Modifying Factors: Improves With: immobilization, movement Associated Symptoms: nausea, cough, headaches, weakness, No chills, No fever Allergies/Adverse Reactions: armodafinil [From Nuvigil] Allergy (Verified 07/10/19 10:52) azithromycin [From Zithromax] Allergy (Verified 07/10/19 10:52) throat closed-HEART PALPITATIONS cephalexin [From Keflex] Allergy (Verified 07/10/19 10:52) latex Allergy (Verified 07/10/19 10:52) hives during exam metronidazole [From Flagyl] Allergy (Verified 07/10/19 10:52) sob throat closes anaphalactic Metronidazole HCl [From Flagyl] Allergy (Verified 07/10/19 10:52) HEART PALPITATIONS modafinil [From Provigil] Allergy (Verified 07/10/19 10:52) Penicillins Allergy (Verified 07/10/19 10:52) "I DON'T KNOW" ziprasidone HCl [From Geodon] Allergy (Verified 07/10/19 10:52) hallucinate/confusion ziprasidone mesylate [From Geodon] Allergy (Verified 07/10/19 10:52) HEART PALPITATIONS adhesive tape Allergy (Uncoded 07/10/19 10:52) Rash Home Medications: Atorvastatin Calcium 40 mg PO HS 04/18/18 [History] Levothyroxine Sodium [Synthroid] 200 mg PO BREAKFAST 02/17/18 [History] Lisinopril 5 mg [Zestril 5 MG] 2.5 mg PO DAILY 02/17/18 [History] Tiotropium [place] [Spiriva Respimat] 2.5 mcg IH DAILY 02/17/18 [History] Trazodone HCl [Desyrel] 300 mg PO HS 02/17/18 [History] clonazePAM [Clonazepam] 2 mg PO HS 02/17/18 [History] lamoTRIgine [Lamictal] 300 mg PO HS 02/17/18 [History] Aspirin EC 81 mg [Ecotrin 81 mg] 81 mg PO DAILY 04/05/19 [History] Liraglutide [Victoza 2-Jass] 1.8 mg SQ DAILY 04/05/19 [History] Albuterol Sulfate [Albuterol Sulfate Hfa] 18 gm IH UD 05/25/20 [History] Amphet Asp/Amphet/D-Amphet [Dextroamp-Amphet ER 30 mg Cap] 30 mg PO DAILY 05/25/20 [History] Bupropion HCl Xl 150 mg [Wellbutrin XL 150 MG] 300 mg PO DAILY 05/25/20 [History] Ezetimibe 10 mg PO DAILY 05/25/20 [History] Levothyroxine Sodium [Synthroid] 200 mcg PO DAILY 05/25/20 [History] Metformin HCl 1,000 mg PO BID 05/25/20 [History] Omeprazole 20 mg PO DAILY 05/25/20 [History] Hx Tetanus, Diphtheria Vaccination/Date Given: No (couple of years ago) Hx Influenza Vaccination/Date Given: Yes Hx Pneumococcal Vaccination/Date Given: Yes Travel Risk - International Travel Have you traveled outside of the country in past 3 weeks: No If Yes, where;: N - Coronavirus Screening Are you exhibiting any of the following symptoms?: Yes Close contact with a COVID-19 positive Pt in past 14-21 Days: No - Review of Systems Constitutional: Fatigue, Weakness Eyes: No Symptoms Ears, Nose, & Throat: No Symptoms Respiratory: Cough Cardiac: No Symptoms Abdominal/Gastrointestinal: No Symptoms Genitourinary Symptoms: No Symptoms Musculoskeletal: Joint Pain, Myalgias Skin: No Symptoms Neurological: Dizziness, Gait Changes, Headache Psychological: No Symptoms Endocrine: No Symptoms Hematologic/Lymphatic: No Symptoms Immunological/Allergic: No Symptoms - Past Medical History Pertinent Past Medical History: Yes Neurological History: Migraines ENT History: Cataracts Cardiac History: Congestive Heart Failure, High Cholesterol Respiratory History: Asthma, Bronchitis, COPD, Emphysema, Pneumonia Endocrine Medical History: Diabetes Type II, Hypothyroidism Musculoskeletal History: Arthritis, Fractures GI Medical History: Hemorrhoids History: No Pertinent History Psycho-Social History: Bipolar Female Reproductive Disorders: Endometriosis Other Medical History: Hypotension is past. Frequent fractures in LE. - Past Surgical History Past Surgical History: Yes Neuro Surgical History: No Pertinent History Cardiac: Cardiac Catheterization Respiratory: No Pertinent History Gastrointestinal: Cholecystectomy Genitourinary: No Pertinent History Musculoskeletal: Other Female Surgical History: Section, Hysterectomy Other Surgical History: thyroidectomy. L knee scope. 2 BLADDER SURGERYS left knee replacement - Social History Smoking Status: Current every day smoker How long have you smoked: 31 Exposure to second hand smoke: Yes Alcohol Use: Socially Drug Use: none Patient Lives Alone: No Significant Family History: no pertinent family hx - Nursing Vital Signs Nursing Vital Signs: Initial Vital Signs Pulse Rate 94 H 05/25/20 13:46 Respiratory Rate 16 05/25/20 13:46 Blood Pressure 115/75 05/25/20 13:46 O2 Sat by Pulse Oximetry 96 05/25/20 13:46 Pain Scale Pain Intensity 4 - Physical Exam General Appearance: no apparent distress Eye Exam: PERRL/EOMI, eyes nml inspection Ears, Nose, Throat Exam: normal ENT inspection, TMs normal, pharynx normal Neck Exam: normal inspection, non-tender, supple, full range of motion Respiratory Exam: normal breath sounds, chest tenderness, lungs clear Cardiovascular Exam: regular rate/rhythm, normal heart sounds Gastrointestinal/Abdomen Exam: soft, normal bowel sounds Back Exam: normal inspection, No CVA tenderness Extremity Exam: normal inspection, joint swelling (Knee with previous knee replacement), No calf tenderness Neurologic Exam: alert, oriented x 3, cooperative, electrophysiology scientist II-XII nml as tested, normal mood/affect, nml cerebellar function, sensation nml Skin Exam: normal color SpO2 Interpretation: normal O2 Delivery: Room Air - Course Nursing assessment & vital signs reviewed: Yes EKG Interpreted by Me: RATE (78), Sinus Rhythm, NORMAL AXIS, NORMAL INTERVALS (None specific ST and T wave changes) Ordered Tests: Active Orders 24 hr Category Date Time Status Accucheck STAT Care 05/25/20 15:05 Active Parachute Folder STAT Care 05/25/20 15:06 Active EKG-ER Only STAT Care 05/25/20 15:05 Active IV Insertion STAT Care 05/25/20 15:05 Active NPO (ED) STAT Care 05/25/20 15:06 Active CHEST 1 VIEW (PORTABLE) Stat Exams 05/25/20 15:18 Completed HEAD WITHOUT CONTRAST [CT] Stat Exams 05/25/20 15:14 Completed BLOOD CULTURE Stat Lab 05/25/20 16:35 Received CBC W DIFF Stat Lab 05/25/20 15:05 Completed CK-Creatinine Phosphokinase Stat Lab 05/25/20 15:30 Completed CMP Stat Lab 05/25/20 15:30 Completed Lactic Acid Stat Lab 05/25/20 15:40 Completed MAG [MAGNESIUM] Stat Lab 05/25/20 15:30 Completed T4 (Thyroxine) Stat Lab 05/25/20 Completed TROPONIN Q3H Lab 05/25/20 15:30 Completed TROPONIN Q3H Lab 05/25/20 17:00 Completed TROPONIN Q3H Lab 05/25/20 21:15 Ordered TSH, 3RD Generation Stat Lab 05/25/20 15:30 Completed UA W/RFX UR CULTURE Stat Lab 05/25/20 16:40 Completed Medication Summary Discontinued Medications Generic Name Dose Route Start Last Admin Trade Name Freq PRN Reason Stop Dose Admin Sodium Chloride 1,000 mls @ 999 mls/hr 05/25/20 15:05 05/25/20 17:26 Sodium Chloride 0.9% 1000 Ml IV 05/25/20 16:05 Infused .Q1H1M STA Infusion Sodium Chloride Confirm 05/25/20 16:04 Sodium Chloride 0.9% 1000 Ml Administered 05/25/20 16:05 Dose 1,000 mls @ ud .ROUTE .STK-MED ONE Lab/Rad Data: Laboratory Result Diagrams 05/25/20 15:05 05/25/20 15:30 Laboratory Results 05/25/20 05/25/20 05/25/20 Range/Units Unknown 17:00 16:40 WBC (4.0-10.5) K/mm3 RBC (4.1-5.4) M/mm3 Hgb (12.0-16.0) gm/dl Hct (35-47) % MCV (78-100) fl MCH (26-32) pg MCHC (32-36) g/dl RDW (11.5-14.0) % Plt Count (150-450) K/mm3 MPV (7.5-11.0) fl Gran % (36.0-66.0) % Eos # (Auto) (0-0.5) Absolute Lymphs (auto) (1.0-4.6) Absolute Monos (auto) (0.0-1.3) Lymphocytes % (24.0-44.0) % Monocytes % (0.0-12.0) % Eosinophils % (0.00-5.0) % Basophils % (0.0-0.4) % Absolute Granulocytes (1.4-6.9) Basophils # (0-0.4) Sodium (137-145) mmol/L Potassium (3.5-5.1) mmol/L Chloride (98-107) mmol/L Carbon Dioxide (22-30) mmol/L Anion Gap (5-15) MEQ/L BUN (7-17) mg/dL Creatinine (0.52-1.04) mg/dL Estimated GFR ML/MIN Glucose (74-106) mg/dL Lactic Acid (0.4-2.0) Calcium (8.4-10.2) mg/dL Magnesium (1.6-2.3) mg/dL Total Bilirubin (0.2-1.3) mg/dL AST (14-36) U/L ALT (0-35) U/L Alkaline Phosphatase (38-126) U/L Creatine Kinase (30-135) U/L Troponin I < 0.012 (0.000-0.034) ng/mL Serum Total Protein (6.3-8.2) g/dL Albumin (3.5-5.0) g/dL Thyroxine (T4) 17.1 H (5.53-10.96) ug/dL TSH 3rd Generation (0.47-4.68) mIU/L Urine Color YELLOW (YELLOW) Urine Appearance SLIGHTLY CLOUDY (CLEAR) Urine pH 5.0 (5-6) Ur Specific [place] 1.014 (1.005-1.025) Urine Protein NEGATIVE (Negative) Urine Ketones NEGATIVE (NEGATIVE) Urine Blood NEGATIVE (0-5) Sung/ul Urine Nitrite NEGATIVE (NEGATIVE) Urine Bilirubin NEGATIVE (NEGATIVE) Urine Urobilinogen NEGATIVE (0-1) mg/dL Ur Leukocyte Esterase NEGATIVE (NEGATIVE) Urine WBC (Auto) NONE SEEN (0-5) /HPF Urine RBC (Auto) NONE SEEN (0-2) /HPF U Hyaline Cast (Auto) 6-10 (0-2) /LPF U Epithel Cells (Auto) NONE (FEW) /HPF Urine Bacteria (Auto) NONE (NEGATIVE) /HPF Urine Mucus (Auto) SLIGHT (NEGATIVE) /HPF Urine Culture Reflexed NO (NO) Urine Glucose NEGATIVE (NEGATIVE) mg/dL 05/25/20 05/25/20 05/25/20 Range/Units 15:40 15:30 15:30 WBC (4.0-10.5) K/mm3 RBC (4.1-5.4) M/mm3 Hgb (12.0-16.0) gm/dl Hct (35-47) % MCV (78-100) fl MCH (26-32) pg MCHC (32-36) g/dl RDW (11.5-14.0) % Plt Count (150-450) K/mm3 MPV (7.5-11.0) fl Gran % (36.0-66.0) % Eos # (Auto) (0-0.5) Absolute Lymphs (auto) (1.0-4.6) Absolute Monos (auto) (0.0-1.3) Lymphocytes % (24.0-44.0) % Monocytes % (0.0-12.0) % Eosinophils % (0.00-5.0) % Basophils % (0.0-0.4) % Absolute Granulocytes (1.4-6.9) Basophils # (0-0.4) Sodium 138 (137-145) mmol/L Potassium 3.7 (3.5-5.1) mmol/L Chloride 101 (98-107) mmol/L Carbon Dioxide 24 (22-30) mmol/L Anion Gap 17.1 H (5-15) MEQ/L BUN 16 (7-17) mg/dL Creatinine 1.32 H (0.52-1.04) mg/dL Estimated GFR 44.1 ML/MIN Glucose 96 (74-106) mg/dL Lactic Acid 1.1 (0.4-2.0) Calcium 9.3 (8.4-10.2) mg/dL Magnesium 1.7 (1.6-2.3) mg/dL Total Bilirubin 0.50 (0.2-1.3) mg/dL AST 28 (14-36) U/L ALT 17 (0-35) U/L Alkaline Phosphatase 87 (38-126) U/L Creatine Kinase 42 (30-135) U/L Troponin I < 0.012 (0.000-0.034) ng/mL Serum Total Protein 7.4 (6.3-8.2) g/dL Albumin 4.4 (3.5-5.0) g/dL Thyroxine (T4) (5.53-10.96) ug/dL TSH 3rd Generation < 0.015 L (0.47-4.68) mIU/L Urine Color (YELLOW) Urine Appearance (CLEAR) Urine pH (5-6) Ur Specific [place] (1.005-1.025) Urine Protein (Negative) Urine Ketones (NEGATIVE) Urine Blood (0-5) Sung/ul Urine Nitrite (NEGATIVE) Urine Bilirubin (NEGATIVE) Urine Urobilinogen (0-1) mg/dL Ur Leukocyte Esterase (NEGATIVE) Urine WBC (Auto) (0-5) /HPF Urine RBC (Auto) (0-2) /HPF U Hyaline Cast (Auto) (0-2) /LPF U Epithel Cells (Auto) (FEW) /HPF Urine Bacteria (Auto) (NEGATIVE) /HPF Urine Mucus (Auto) (NEGATIVE) /HPF Urine Culture Reflexed (NO) Urine Glucose (NEGATIVE) mg/dL 05/25/20 Range/Units 15:05 WBC 7.9 (4.0-10.5) K/mm3 RBC 4.58 (4.1-5.4) M/mm3 Hgb 12.5 (12.0-16.0) gm/dl Hct 39.5 (35-47) % MCV 86.2 (78-100) fl MCH 27.3 (26-32) pg MCHC 31.6 L (32-36) g/dl RDW 14.4 H (11.5-14.0) % Plt Count 257 (150-450) K/mm3 MPV 10.7 (7.5-11.0) fl Gran % 55.0 (36.0-66.0) % Eos # (Auto) 0.34 (0-0.5) Absolute Lymphs (auto) 2.33 (1.0-4.6) Absolute Monos (auto) 0.82 (0.0-1.3) Lymphocytes % 29.7 (24.0-44.0) % Monocytes % 10.4 (0.0-12.0) % Eosinophils % 4.3 (0.00-5.0) % Basophils % 0.6 (0.0-0.4) % Absolute Granulocytes 4.31 (1.4-6.9) Basophils # 0.05 (0-0.4) Sodium (137-145) mmol/L Potassium (3.5-5.1) mmol/L Chloride (98-107) mmol/L Carbon Dioxide (22-30) mmol/L Anion Gap (5-15) MEQ/L BUN (7-17) mg/dL Creatinine (0.52-1.04) mg/dL Estimated GFR ML/MIN Glucose (74-106) mg/dL Lactic Acid (0.4-2.0) Calcium (8.4-10.2) mg/dL Magnesium (1.6-2.3) mg/dL Total Bilirubin (0.2-1.3) mg/dL AST (14-36) U/L ALT (0-35) U/L Alkaline Phosphatase (38-126) U/L Creatine Kinase (30-135) U/L Troponin I (0.000-0.034) ng/mL Serum Total Protein (6.3-8.2) g/dL Albumin (3.5-5.0) g/dL Thyroxine (T4) (5.53-10.96) ug/dL TSH 3rd Generation (0.47-4.68) mIU/L Urine Color (YELLOW) Urine Appearance (CLEAR) Urine pH (5-6) Ur Specific [place] (1.005-1.025) Urine Protein (Negative) Urine Ketones (NEGATIVE) Urine Blood (0-5) Sung/ul Urine Nitrite (NEGATIVE) Urine Bilirubin (NEGATIVE) Urine Urobilinogen (0-1) mg/dL Ur Leukocyte Esterase (NEGATIVE) Urine WBC (Auto) (0-5) /HPF Urine RBC (Auto) (0-2) /HPF U Hyaline Cast (Auto) (0-2) /LPF U Epithel Cells (Auto) (FEW) /HPF Urine Bacteria (Auto) (NEGATIVE) /HPF Urine Mucus (Auto) (NEGATIVE) /HPF Urine Culture Reflexed (NO) Urine Glucose (NEGATIVE) mg/dL - Progress Progress: improved, re-examined Progress Note: 59 years old is evaluated for generalized weakness/fatigue with difficulty keeping balance along with recent weight loss. EKG showed sinus rhythm with no acute ischemic changes with negative troponins x2. I have obtained CT head which is negative for any acute finding. Chest x-ray did not show any definitive pneumonia. She is not short of breath and maintaining oxygen saturation at room air around 99%. Work-up otherwise is grossly negative except for low TSH and high T4 and mild LILLIAM. I believe patient symptomatology/presentation is a combination of multiple things including hypothyroidism, peripheral neuropathy and some element of anxiety as well and also that she does not have a good balance to begin with. With her recent weight loss and generalized fatigue I believe is more precipitated with hyperthyroidism. I have advised her to decrease the dose of Synthroid 100 mcg and call her funeral service licensee for reevaluation early next week so that level can be rechecked soon. I have also obtained neurology consult who do not think patient has symptoms of neuro origin and needing any admission or further work- up in the hospital but patient can be discharged with outpatient follow-up. I agree with her recommendations. Plan discussed with patient and family in detail who understand and agree with it. Discussed signs symptoms of worsening needing return to ER which he seems understanding. Stable for discharge. 05/25/20 20:07 Discussed with : Other Counseled pt/family regarding: lab results, diagnosis, need for follow-up, rad results - Departure Departure Disposition: Home Clinical Impression: Hyperthyroidism, General weakness, LILLIAM (acute kidney injury) Condition: Stable Critical Care Time: No Referrals: EMA MALAVE [Primary Care Provider] - Follow Up with PCP/3 days CAMILA DAVENPORT [NON-STAFF PHY W/O PRIVILEGES] - Follow Up with PCP/3 days Additional Instructions: Decrease dose of levothyroxine 100 MCG daily, follow-up with your primary care and funeral service licensee for reevaluation early next week. Drink plenty of fluids. Use cane/walker for ambulation. Return to ER for worsening.
--- NOTE | 2020-05-25 15:37 | XRAY ---
Exam: CT of the head without IV contrast from 05/25/2020. CTDI: 53.92 mGy Comparison: CT of the head without IV contrast from 10/04/2017. Indication: 59-year-old female with dizziness, rule out stroke. Technique: Non-IV contrast axial images were obtained through the brain. Reconstructed coronal and sagittal images were created and reviewed. Findings: The patient's head is slightly rotated in the CT gantry. The ventricles are of normal size and configuration. No focal mass effect or midline shift is seen. There is no evidence of acute intracranial bleed or abnormal extra-axial fluid collection. The mahajan matter-white matter junctions appear unremarkable. No low attenuation cortical infarct is seen. I see no evidence of a positive MCA sign. The cortical sulci and basilar cisterns appear unremarkable. The calvarium of the skull is intact without evidence of fracture or other focal bone lesion. The visualized paranasal sinuses are clear, except for some minimal mucoperiosteal thickening within the ethmoid sinuses. No air-fluid levels are seen. The mastoid air cells are clear without effusion. The middle ear cavities appear grossly unremarkable. The orbits appear unremarkable. Impression: 1. Unremarkable nonenhanced CT of the brain. I see no evidence of acute intracranial bleed or evidence for early infarct by this study. The findings are unchanged from 10/04/2017. Note: I personally called this report to the emergency Department physician, Dr. Brown, at 3:30 PM on 05/25/2020.
--- NOTE | 2020-05-25 15:58 | XRAY ---
Exam: AP portable chest film from 05/25/2020. Comparison: AP portable chest film from 01/15/2019. Indication: 59-year-old female for rule out pneumonia. Findings: The transverse heart size is normal. There is some focal opacity at the right cardiophrenic angle which I believe represents an epicardial fat pad. There also appears to be a small focal airspace opacity at the central left lung base in close proximity with the left cardiophrenic angle. It is possible that this represents an epicardial fat-pad as well. I note prominent bilateral epicardial fat pads on a CT examination of the abdomen/pelvis from 04/29/2019. However, it is difficult to completely exclude the possibility of a small focus of pneumonitis based on this study. The remainder of the lung mccurdy appears clear. I do note a calcified lymph node inferior right lateral to the subcarinal region. The remainder of the anderson and mediastinal structures appears unremarkable. Pulmonary vascularity is normal. No pneumothorax or pleural fluid is seen. There is some deformity of the left clavicle just medial to the midpoint suggestive of an old healed fracture. In addition, there appear to be several old healed rib fracture deformities within the lateral aspect of the left mid rib cage which I believe represent the left fifth, sixth, seventh, and eighth ribs. Impression: 1. There is a small focal airspace opacity at the central left lung base near the left cardiophrenic angle. It is possible this represents a prominent epicardial fat pad. A small focus of pneumonitis is difficult to exclude. 2. I believe there is a definite epicardial fat pad at the right cardiophrenic angle. 3. No other acute cardiopulmonary disease is seen. 4. Evidence of old healed fractures within the left hemithorax, as discussed.
[2020-05-25] MEDS ORDERED: Sodium Chloride 0.9% 1000 ML 1,000 ML ONE (16:04)
[2020-05-25 16:07] LABS: Absolute Neutrophil Ct (ANC) 4.31 (1.4-6.9); BASOPHIL % 0.6 % (0.0-0.4); Basophil (Absolute #) 0.05 (0-0.4); Eosinophil % 4.3 % (0.00-5.0); Eosinophil (Absolute #) 0.34 (0-0.5); Hematocrit 39.5 % (35-47); Hemoglobin 12.5 gm/dl (12.0-16.0); Lymphocyte (Absolute #) 2.33 (1.0-4.6); Lymphocytes % 29.7 % (24.0-44.0); Mean Cell Volume 86.2 fl (78-100); Mean Corpuscular Hemoglobin 27.3 pg (26-32); Mean Corpuscular Hgb Concent. 31.6 g/dl (32-36); Mean Platelet Volume 10.7 fl (7.5-11.0); Monocyte (Absolute #) 0.82 (0.0-1.3); Monocytes % 10.4 % (0.0-12.0); Platelet Count 257 K/mm3 (150-450); Red Blood Count 4.58 M/mm3 (4.1-5.4); Red Cell Distribution Width 14.4 % (11.5-14.0); White Blood Count 7.9 K/mm3 (4.0-10.5)
[2020-05-25 16:48] LABS: ALBUMIN 4.4 g/dL (3.5-5.0); ALKALINE PHOSPHATASE 87 U/L (38-126); ANION GAP 17.1 MEQ/L (5-15); BLOOD UREA NITROGEN 16 mg/dL (7-17); CHLORIDE 101 mmol/L (98-107); CK-Creatinine Phosphokinase 42 U/L (30-135); Calcium 9.3 mg/dL (8.4-10.2); Carbon Dioxide 24 mmol/L (22-30); Creatinine 1 1.32 mg/dL (0.52-1.04); Glucose 96 mg/dL (74-106); MAGNESIUM 1.7 mg/dL (1.6-2.3); Potassium 3.7 mmol/L (3.5-5.1); SGOT/AST 28 U/L (14-36); SGPT/ALT 17 U/L (0-35); SODIUM 138 mmol/L (137-145); TSH, 3RD Generation < 0.015 mIU/L (0.47-4.68); Total Protein 7.4 g/dL (6.3-8.2)
[2020-05-25 16:56] LABS: Appearance SLIGHTLY CLOUDY (CLEAR); Bilirubin NEGATIVE (NEGATIVE); Blood NEGATIVE Ery/ul (0-5); Glucose NEGATIVE (NEGATIVE); Ketones NEGATIVE (NEGATIVE); Leukocyte Esterase NEGATIVE (NEGATIVE); Mucus SLIGHT /HPF (NEGATIVE); Nitrite NEGATIVE (NEGATIVE); Protein,Urine Dip NEGATIVE (Negative); Specific Gravity 1.014 (1.005-1.025); Urobilinogen NEGATIVE mg/dL (0-1)
[2020-05-25 16:58] LABS: RBC NONE SEEN /HPF (0-2); WBC NONE SEEN /HPF (0-5)
[2020-05-25 20:28] VITALS: BP 98/81; PULSE 100; O2SAT 97
== END 2020-05-25 20:24 | disposition home or self-care (01) ==
LOC: ED 13:45
DX: E05.90 Thyrotoxicosis, unspecified without thyrotoxic crisis or storm (principal); R53.1 Weakness; N17.9 Acute kidney failure, unspecified; E78.01 Familial hypercholesterolemia; E03.9 Hypothyroidism, unspecified; F31.9 Bipolar disorder, unspecified
CPT/HCPCS: 36000; 36415; 70450; 71045; 80053; 81001; 82550; 82962; 83605; 83735; 84436; 84443; 84481; 84484; 85025; 87040; 93005; 93041; 96360; 99284

== ENCOUNTER 2021-03-21 17:47 | Emergency (ER) | payer OTHER ==
--- NOTE | 2021-03-21 17:50 | ERPHSYRPT ---
- History of Present Illness Time Seen by Provider: 03/21/21 17:50 Source: patient, family Exam Limitations: no limitations Physician History: This is a 60-year-old white female has a history of chronic recurring migraine headaches. However she had not had any in approximately 1 year. In the last month she has had a few episodes of atypical migraines. She used to get Botox injections which seem to help. She actually got to the point where her migraines had resolved. She is not on any antimigraine medications. She has an appointment to see a new neurologist. Yesterday, patient noticed a typical migraine that is not gone away. She has had some nausea associated with it as well as light sensitivity. Patient states that IV fluids, Compazine and Benadryl combination helps her resolve her migraine headaches better than anything else. Patient did not sustain any head injury Timing/Duration: yesterday Quality: burning Head Pain Location: temporal, occipital, parietal Severity of Pain-Max: moderate Severity of Pain-Current: moderate Recent Head Trauma: no recent headache/trauma, chronic headaches Modifying Factors: Improves With: exposure to light, noise Associated Symptoms: nausea/vomiting (No vomiting), sensitive to light, No neck pain, No stiff neck Previous symptoms: same symptoms as today, no recent treatment Allergies/Adverse Reactions: armodafinil [From Nuvigil] Allergy (Verified 03/21/21 18:14) azithromycin [From Zithromax] Allergy (Verified 03/21/21 18:14) throat closed-HEART PALPITATIONS cephalexin [From Keflex] Allergy (Verified 03/21/21 18:14) latex Allergy (Verified 03/21/21 18:14) hives during exam metronidazole [From Flagyl] Allergy (Verified 03/21/21 18:14) sob throat closes anaphalactic Metronidazole HCl [From Flagyl] Allergy (Verified 03/21/21 18:14) HEART PALPITATIONS modafinil [From Provigil] Allergy (Verified 03/21/21 18:14) Penicillins Allergy (Verified 03/21/21 18:14) "I DON'T KNOW" ziprasidone HCl [From Geodon] Allergy (Verified 03/21/21 18:14) hallucinate/confusion ziprasidone mesylate [From Geodon] Allergy (Verified 03/21/21 18:14) HEART PALPITATIONS adhesive tape Allergy (Uncoded 03/21/21 18:14) Rash Home Medications: Atorvastatin Calcium 40 mg PO HS 02/17/18 [History] Lisinopril 5 mg [Zestril 5 MG] 2.5 mg PO DAILY 02/17/18 [History] Tiotropium Helm [Spiriva Respimat] 2.5 mcg IH DAILY 02/17/18 [History] Trazodone HCl [Desyrel] 300 mg PO HS 02/17/18 [History] clonazePAM [Clonazepam] 2 mg PO HS 02/17/18 [History] lamoTRIgine [Lamictal] 300 mg PO HS 02/17/18 [History] Liraglutide [Victoza 2-Jass] 1.8 mg SQ DAILY 04/05/19 [History] Amphet Asp/Amphet/D-Amphet [Dextroamp-Amphet ER 30 mg Cap] 20 mg PO DAILY 05/25/20 [History] Ezetimibe 10 mg PO DAILY 05/25/20 [History] Levothyroxine Sodium [Synthroid] 112 mcg PO DAILY 05/25/20 [History] Metformin HCl 1,000 mg PO BID 05/25/20 [History] Magnesium Oxide [Magnesium] 400 mg PO BID 03/21/21 [History] PANTOPRAZOLE 40 mg Tablet [Protonix 40MG Tablet] 40 mg PO DAILY 03/21/21 [History] Hx Tetanus, Diphtheria Vaccination/Date Given: No (couple of years ago) Hx Influenza Vaccination/Date Given: Yes Hx Pneumococcal Vaccination/Date Given: Yes Travel Risk - International Travel Have you traveled outside of the country in past 3 weeks: No - Coronavirus Screening Are you exhibiting any of the following symptoms?: No Close contact with a COVID-19 positive Pt in past 14-21 Days: No - Review of Systems Constitutional: No Symptoms Eyes: No Symptoms Ears, Nose, & Throat: No Symptoms Respiratory: No Symptoms Cardiac: No Symptoms Abdominal/Gastrointestinal: No Symptoms Genitourinary Symptoms: No Symptoms Musculoskeletal: No Symptoms Neurological: Headache Psychological: No Symptoms Endocrine: No Symptoms Hematologic/Lymphatic: No Symptoms Immunological/Allergic: No Symptoms All Other Systems: Reviewed and Negative - Past Medical History Pertinent Past Medical History: Yes Neurological History: Migraines ENT History: Cataracts Cardiac History: Congestive Heart Failure, High Cholesterol Respiratory History: Asthma, Bronchitis, COPD, Emphysema, Pneumonia Endocrine Medical History: Diabetes Type II, Hypothyroidism Musculoskeletal History: Arthritis, Fractures GI Medical History: Hemorrhoids History: No Pertinent History Psycho-Social History: Bipolar Female Reproductive Disorders: Endometriosis Other Medical History: Hypotension is past. Frequent fractures in LE. - Past Surgical History Past Surgical History: Yes Neuro Surgical History: No Pertinent History Cardiac: Cardiac Catheterization Respiratory: No Pertinent History Gastrointestinal: Cholecystectomy Genitourinary: No Pertinent History Musculoskeletal: Other Female Surgical History: Section, Hysterectomy Other Surgical History: thyroidectomy. L knee scope. 2 BLADDER SURGERYS left knee replacement - Social History Smoking Status: Current every day smoker How long have you smoked: 31 Exposure to second hand smoke: Yes Alcohol Use: Socially Drug Use: none Patient Lives Alone: No Significant Family History: no pertinent family hx - Nursing Vital Signs Nursing Vital Signs: Initial Vital Signs Temperature 98.3 F 03/21/21 18:04 Pulse Rate 71 03/21/21 18:04 Blood Pressure 150/87 03/21/21 18:04 O2 Sat by Pulse Oximetry 96 03/21/21 18:04 Pain Scale Pain Intensity 8 - Physical Exam General Appearance: mild distress, alert, anxiety Eye Exam: PERRL/EOMI, eyes nml inspection Ears, Nose, Throat Exam: normal ENT inspection, moist mucous membranes Neck Exam: normal inspection, non-tender, supple, full range of motion Respiratory Exam: normal breath sounds, lungs clear, airway intact, No chest tenderness, No respiratory distress Cardiovascular Exam: regular rate/rhythm, normal heart sounds, normal peripheral pulses Gastrointestinal/Abdominal Exam: No tenderness Back Exam: normal inspection, normal range of motion, No CVA tenderness, No vertebral tenderness Extremity Exam: normal inspection, normal range of motion, pelvis stable Mental 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, oriented x 3, 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 Exam: normal hearing, normal speech, PERRL, tongue midline Coordination/Gait Exam: normal finger to nose, normal gait, normal cerebellar function Motor/Sensory Exam: no motor deficit, no sensory deficit, no pronator drift Skin Exam: normal color, warm, dry Lymphatic Exam: No adenopathy SpO2 Interpretation: normal O2 Delivery: Room Air - Course Nursing assessment & vital signs reviewed: Yes Ordered Tests: Active Orders 24 hr Category Date Time Status IV Insertion STAT Care 03/21/21 18:33 Active HEAD WITHOUT CONTRAST [CT] Stat Exams 03/21/21 18:33 Taken CBC W DIFF Stat Lab 03/21/21 19:33 Received CMP Stat Lab 03/21/21 19:33 Received Medication Summary Discontinued Medications Generic Name Dose Route Start Last Admin Trade Name Vidhi PRN Reason Stop Dose Admin Diphenhydramine HCl 50 mg 03/21/21 18:35 03/21/21 19:06 Benadryl 50 Mg/Ml IV 03/21/21 18:36 50 mg STAT ONE Administration Diphenhydramine HCl Confirm 03/21/21 18:59 Benadryl 50 Mg/Ml Administered 03/21/21 19:00 Dose 50 mg .ROUTE .STK-MED ONE Sodium Chloride 500 mls @ 999 mls/hr 03/21/21 18:34 03/21/21 19:05 Sodium Chloride 0.9% 500 Ml IV 03/21/21 19:04 999 mls/hr .Q31M ONE Administration Sodium Chloride Confirm 03/21/21 18:59 Sodium Chloride 0.9% 1000 Ml Administered 03/21/21 19:00 Dose 1,000 mls @ ud .ROUTE .STK-MED ONE Sodium Chloride Confirm 03/21/21 19:04 Sodium Chloride 0.9% 500 Ml Administered 03/21/21 19:05 Dose 500 mls @ ud IV .STK-MED ONE Prochlorperazine Edisylate 10 mg 03/21/21 18:33 03/21/21 19:06 Compazine 10 Mg/2 Ml IV 03/21/21 18:34 10 mg STAT ONE Administration Prochlorperazine Edisylate Confirm 03/21/21 18:59 Compazine 10 Mg/2 Ml Administered 03/21/21 19:00 Dose 10 mg .ROUTE .STK-MED ONE - Progress Progress: improved, re-examined Air Movement: good Progress Note: 03/21/21 19:40 CAT scan of the head without contrast shows no acute intracranial abnormalities. Blood Culture(s) Obtained: No Antibiotics given: No Counseled pt/family regarding: diagnosis, need for follow-up, rad results - Departure Departure Disposition: Home Clinical Impression: Migraine headache Condition: Stable Critical Care Time: No Referrals: EMA MALAVE [Primary Care Provider] - Additional Instructions: Call your primary care doctor tomorrow to make arrangements for follow-up appointment and for further management of your headache pain.
[2021-03-21] MEDS ORDERED: Compazine 10 MG/2 ML IV ONE (18:33)
[2021-03-21] MEDS ORDERED: Sodium Chloride 0.9% 500 ML 500 ML IV ONE ×2 (18:34→19:04)
[2021-03-21] MEDS ORDERED: BENADRYL 50 MG/ML IV ONE (18:35)
[2021-03-21] MEDS ORDERED: BENADRYL 50 MG/ML ONE (18:59)
[2021-03-21] MEDS ORDERED: Sodium Chloride 0.9% 1000 ML 0 ML ONE (18:59)
[2021-03-21] MEDS ORDERED: Compazine 10 MG/2 ML ONE (18:59)
[2021-03-21 19:33] VITALS: O2SAT 98
[2021-03-21 19:37] LABS: Absolute Neutrophil Ct (ANC) 3.48 (1.4-6.9); BASOPHIL % 0.7 % (0.0-0.4); Basophil (Absolute #) 0.05 (0-0.4); Eosinophil % 2.5 % (0.00-5.0); Eosinophil (Absolute #) 0.17 (0-0.5); Hematocrit 38.1 % (35-47); Hemoglobin 11.8 gm/dl (12.0-16.0); Lymphocyte (Absolute #) 2.48 (1.0-4.6); Lymphocytes % 36.8 % (24.0-44.0); Mean Cell Volume 88.2 fl (78-100); Mean Corpuscular Hemoglobin 27.3 pg (26-32); Mean Platelet Volume 10.2 fl (7.5-11.0); Monocyte (Absolute #) 0.56 (0.0-1.3); Monocytes % 8.3 % (0.0-12.0); Neutrophil % 51.7 % (36.0-66.0); Platelet Count 294 K/mm3 (150-450); Red Blood Count 4.32 M/mm3 (4.1-5.4); Red Cell Distribution Width 14.1 % (11.5-14.0); White Blood Count 6.7 K/mm3 (4.0-10.5)
[2021-03-21 19:52] LABS: ALBUMIN 3.9 g/dL (3.5-5.0); ALKALINE PHOSPHATASE 68 U/L (38-126); ANION GAP 9.7 MEQ/L (5-15); BLOOD UREA NITROGEN 18 mg/dL (7-17); CHLORIDE 101 mmol/L (98-107); Calcium 8.8 mg/dL (8.4-10.2); Carbon Dioxide 32 mmol/L (22-30); EST GLOMERULAR FILTRATION RATE > 60.0 ML/MIN; Glucose 92 mg/dL (74-106); Potassium 3.9 mmol/L (3.5-5.1); SGOT/AST 17 U/L (14-36); SGPT/ALT 14 U/L (0-35); SODIUM 139 mmol/L (137-145); Total Protein 6.7 g/dL (6.3-8.2)
[2021-03-21 20:35] VITALS: BP 100/70; PULSE 88
--- NOTE | 2021-03-22 08:52 | XRAY ---
Indication: Atypical headache. Multiple contiguous axial images obtained through the head without contrast. Comparison: May 25, 2020. Normal appearing brain parenchyma, ventricles, and bony calvarium. Visualized paranasal sinuses and mastoid air cells are clear. Impression: Continued normal CT head without contrast exam.
== END 2021-03-21 20:17 | disposition home or self-care (01) ==
LOC: ED 17:47
DX: G43.909 Migraine, unspecified, not intractable, without status migrainosus (principal); I50.9 Heart failure, unspecified; E78.00 Pure hypercholesterolemia, unspecified; E11.9 Type 2 diabetes mellitus without complications
CPT/HCPCS: 36000; 36415; 70450; 80053; 85025; 96360; 96374; 96375; 99284; J1200

== ENCOUNTER 2021-06-12 09:05 | Day surgery (SDC) | payer OTHER ==
[2021-06-12] MEDS ORDERED: Depo-Medrol 40 MG/ML IM ONE (09:06)
[2021-06-12] MEDS ORDERED: BUPIVACAINE 0.5% VIAL IJ ONE (09:06)
[2021-06-12] MEDS ORDERED: DIPRIVAN 200 MG/20 ML IV ONE (10:52)
--- NOTE | 2021-06-12 12:41 | XRAY ---
Indication: Bilateral greater trochanter bursa injections. Intraoperative fluoroscopy provided for 32 seconds. 2 digital spot images submitted for interpretation demonstrates needle tip projecting adjacent to the left and right greater trochanters. Small amount of contrast injected for both needle tip placement. Correlate with intraoperative findings/report.
--- NOTE | 2021-06-12 14:41 | XRAY ---
32 seconds fluoroscopy time in surgery for injections of both greater trochanters of the hips.
[2021-06-12] MEDS ORDERED: Lactated Ringers 1,000 ML IV ONE (16:34)
== END 2021-06-12 11:05 | disposition home or self-care (01) ==
LOC: SDC-PAIN 09:05
PROVIDERS: ATTEND Psychiatry & Neurology Pain Medicine
DX: M70.62 Trochanteric bursitis, left hip (principal); M70.61 Trochanteric bursitis, right hip; E11.9 Type 2 diabetes mellitus without complications; Z79.899 Other long term (current) drug therapy
CPT/HCPCS: 20610; 73521; 77002; 82947; J1030; J2704; Q9966

== ENCOUNTER 2021-06-26 13:23 | Emergency (ER) | payer OTHER ==
--- NOTE | 2021-06-26 13:31 | ERPHSYRPT ---
- History of Present Illness Time Seen by Provider: 06/26/21 13:30 Source: patient Exam Limitations: no limitations Physician History: This is a 60-year-old white female who is obese and is a patient of nurse practitioner Yahaira Morales under the direction of Dr. Andrew and presents with chronic recurring syncopal episode. Patient has been having these episodes periodically for over a year. She is seen a neurologist and her primary care provider for these issues. She has an appointment to see a new neurologist on 07/08/2021. Patient has a history of hypertension, CHF, elevated cholesterol, COPD, diabetes, hypothyroidism, and bipolar disorder. Patient denies any new medication. She denies any chest pain or shortness of breath. She has had no nausea vomiting or diarrhea. This morning, she found herself on the ground for no apparent reason. She hit her head and complains of headache and neck pain. She also has an abrasion to her left elbow and right forearm. She has pain in her left shoulder area posteriorly. Reason for Fall: unknown Injuries/Pain Location: head, neck, upper extremity Loss of Consciousness: brief (seconds), unsure Quality: aching Severity of Pain-Max: mild Severity of Pain-Current: mild Modifying Factors: Improves With: nothing Associated Symptoms (Fall): dizziness, extremity injury, lightheadedness Allergies/Adverse Reactions: armodafinil [From Nuvigil] Allergy (Verified 06/26/21 13:44) azithromycin [From Zithromax] Allergy (Verified 06/26/21 13:44) throat closed-HEART PALPITATIONS cephalexin [From Keflex] Allergy (Verified 06/26/21 13:44) latex Allergy (Verified 06/26/21 13:44) hives during exam metronidazole [From Flagyl] Allergy (Verified 06/26/21 13:44) sob throat closes anaphalactic Metronidazole HCl [From Flagyl] Allergy (Verified 06/26/21 13:44) HEART PALPITATIONS modafinil [From Provigil] Allergy (Verified 06/26/21 13:44) Penicillins Allergy (Verified 06/26/21 13:44) "I DON'T KNOW" ziprasidone HCl [From Geodon] Allergy (Verified 06/26/21 13:44) hallucinate/confusion ziprasidone mesylate [From Geodon] Allergy (Verified 06/26/21 13:44) HEART PALPITATIONS adhesive tape Allergy (Uncoded 06/26/21 13:44) Rash Home Medications: Atorvastatin Calcium 40 mg PO HS 02/17/18 [History] Lisinopril 5 mg [Zestril 5 MG] 2.5 mg PO DAILY 02/17/18 [History] Trazodone HCl [Desyrel] 300 mg PO HS 02/17/18 [History] clonazePAM [Clonazepam] 2 mg PO HS 02/17/18 [History] lamoTRIgine [Lamictal] 300 mg PO HS 02/17/18 [History] Liraglutide [Victoza 2-Jass] 1.8 mg SQ DAILY 04/05/19 [History] Amphet Asp/Amphet/D-Amphet [Dextroamp-Amphet ER 30 mg Cap] 20 mg PO BID 05/25/20 [History] Ezetimibe 10 mg PO DAILY 05/25/20 [History] Levothyroxine Sodium [Synthroid] 125 mcg PO DAILY 05/25/20 [History] Metformin HCl 1,000 mg PO BID 05/25/20 [History] Magnesium Oxide [Magnesium] 400 mg PO BID 03/21/21 [History] PANTOPRAZOLE 40 mg Tablet [Protonix 40MG Tablet] 40 mg PO DAILY 03/21/21 [History] Albuterol Sulfate [Albuterol Sulfate Hfa] 1 inh PO UD 06/26/21 [History] Amlodipine Besylate 2.5 mg PO DAILY 06/26/21 [History] Aspirin EC 81 mg [Ecotrin 81 mg] 81 mg PO DAILY 06/26/21 [History] Furosemide 20 mg [Lasix 20 mg] 20 mg PO DAILY 06/26/21 [History] Isosorbide Mononitrate 30 mg [Imdur 30 MG] 120 mg PO QAM 06/26/21 [History] Metoprolol Tartrate 50 mg [Lopressor 50 MG] 50 mg PO BID 06/26/21 [History] Hx Tetanus, Diphtheria Vaccination/Date Given: No (couple of years ago) Hx Influenza Vaccination/Date Given: Yes Hx Pneumococcal Vaccination/Date Given: Yes Travel Risk - International Travel Have you traveled outside of the country in past 3 weeks: No - Coronavirus Screening Are you exhibiting any of the following symptoms?: No Close contact with a COVID-19 positive Pt in past 14-21 Days: No - Vaccine Status Have you recieved a Covid-19 vaccination: No - Review of Systems Constitutional: No Symptoms Eyes: No Symptoms Ears, Nose, & Throat: No Symptoms Respiratory: No Symptoms Cardiac: No Symptoms Abdominal/Gastrointestinal: No Symptoms Genitourinary Symptoms: No Symptoms Musculoskeletal: No Symptoms, Fall (Tender left shoulder) Skin: Other (Abrasion to left elbow and it is superficial. A second superficial abrasion to the right forearm) Neurological: Dizziness, Headache Psychological: No Symptoms Endocrine: No Symptoms Hematologic/Lymphatic: No Symptoms Immunological/Allergic: No Symptoms All Other Systems: Reviewed and Negative - Past Medical History Pertinent Past Medical History: Yes Neurological History: Migraines ENT History: Cataracts Cardiac History: Congestive Heart Failure, High Cholesterol Respiratory History: Asthma, Bronchitis, COPD, Emphysema, Pneumonia Endocrine Medical History: Diabetes Type II, Hypothyroidism Musculoskeletal History: Arthritis, Fractures GI Medical History: Hemorrhoids History: No Pertinent History Psycho-Social History: Bipolar Female Reproductive Disorders: Endometriosis Other Medical History: Hypotension is past. Frequent fractures in LE. - Past Surgical History Past Surgical History: Yes Neuro Surgical History: No Pertinent History Cardiac: Cardiac Catheterization Respiratory: No Pertinent History Gastrointestinal: Cholecystectomy Genitourinary: No Pertinent History Musculoskeletal: Other Female Surgical History: Section, Hysterectomy Other Surgical History: thyroidectomy. L knee scope. 2 BLADDER SURGERYS left knee replacement - Social History Smoking Status: Current every day smoker How long have you smoked: 31 Exposure to second hand smoke: Yes Alcohol Use: Socially Drug Use: none Patient Lives Alone: No Significant Family History: no pertinent family hx - Nursing Vital Signs Nursing Vital Signs: Initial Vital Signs Temperature 98.3 F 06/26/21 13:27 Pulse Rate 80 06/26/21 13:27 Blood Pressure 132/86 06/26/21 13:27 O2 Sat by Pulse Oximetry 95 06/26/21 13:27 Pain Scale Pain Intensity 8 - [place] Coma Score Best Eye Response ([place]): (4) open spontaneously Best Verbal Response ([place]): (5) oriented Best Motor Response ([place]): (6) obeys commands [place] Total: 15 - Physical Exam General Appearance: no apparent distress, alert, anxiety, obese Head Injury: no evidence of injury Eye Exam: PERRL/EOMI, eyes nml inspection ENT Exam: airway nml, nml ext.inspection Neck Exam: supple, trachea midline, full range of motion, normal alignment, normal inspection, paraspinous muscle tender Respiratory/Chest Exam: normal breath sounds, No chest tenderness, No respiratory distress, No ecchymosis, No crepitus Cardiovascular Exam: normal heart sounds, regular rate/rhythm, No murmur Gastrointestinal Exam: soft, normal bowel sounds, No tenderness Rectal Exam: not done Back Exam: normal inspection, normal range of motion, No CVA tenderness, No vertebral tenderness Extremity Exam: pain with movement (With abrasion left elbow and right forearm mid dorsal aspect) Neurologic Exam: alert, oriented x 3, 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, 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, normal mood/affect, nml cerebellar function, nml station & gait, sensation nml Skin Exam: abrasion (Left elbow and right mid forearm dorsal aspect) SpO2 Interpretation: normal O2 Delivery: Room Air Ordered Tests: Active Orders 24 hr Category Date Time Status Clean Catch Urine Specimen STAT Care 06/26/21 14:23 Active EKG-ER Only STAT Care 06/26/21 14:23 Active IV Insertion STAT Care 06/26/21 14:23 Active NPO (ED) STAT Care 06/26/21 14:23 Active Pulse Oximetry (ED) STAT Care 06/26/21 14:23 Active Pulse Oximetry (ED) STAT Care 06/26/21 14:23 Active CERVICAL SPINE WO CONTRAST [CT] Stat Exams 06/26/21 14:23 Completed ELBOW (MINIMUM 3 VIEWS) Stat Exams 06/26/21 14:24 Completed FOREARM Stat Exams 06/26/21 14:25 Completed HEAD WITHOUT CONTRAST [CT] Stat Exams 06/26/21 14:23 Completed SHOULDER Stat Exams 06/26/21 14:25 Completed CBC W DIFF Stat Lab 06/26/21 14:41 Completed CMP Stat Lab 06/26/21 14:41 Completed CULTURE,URINE Stat Lab 06/26/21 14:43 Received ETHYL ALCOHOL Stat Lab 06/26/21 14:41 Completed T4 (Thyroxine) Stat Lab 06/26/21 14:47 Completed TROPONIN Q3H Lab 06/26/21 15:45 Completed TROPONIN Q3H Lab 06/26/21 18:45 Ordered TROPONIN Q3H Lab 06/26/21 21:45 Ordered TSH [TSH, 3RD Generation] Stat Lab 06/26/21 14:47 Completed UA W/RFX UR CULTURE Stat Lab 06/26/21 14:43 Completed Urine Triage Profile Stat Lab 06/26/21 14:43 Completed Medication Summary Discontinued Medications Generic Name Dose Route Start Last Admin Trade Name Vidhi PRN Reason Stop Dose Admin Sodium Chloride 1,000 mls @ 999 mls/hr 06/26/21 14:23 06/26/21 16:28 Sodium Chloride 0.9% 1000 Ml IV 06/26/21 15:23 Infused .Q1H1M STA Infusion Sodium Chloride Confirm 06/26/21 14:45 Sodium Chloride 0.9% 1000 Ml Administered 06/26/21 14:46 Dose 1,000 mls @ ud .ROUTE .STK-MED ONE Lab/Rad Data: Laboratory Result Diagrams 06/26/21 14:41 06/26/21 14:41 Laboratory Results 06/26/21 06/26/21 06/26/21 Range/Units 15:45 14:47 14:43 WBC (4.0-10.5) K/mm3 RBC (4.1-5.4) M/mm3 Hgb (12.0-16.0) gm/dl Hct (35-47) % MCV (78-100) fl MCH (26-32) pg MCHC (32-36) g/dl RDW (11.5-14.0) % Plt Count (150-450) K/mm3 MPV (7.5-11.0) fl Gran % (36.0-66.0) % Eos # (Auto) (0-0.5) Absolute Lymphs (auto) (1.0-4.6) Absolute Monos (auto) (0.0-1.3) Lymphocytes % (24.0-44.0) % Monocytes % (0.0-12.0) % Eosinophils % (0.00-5.0) % Basophils % (0.0-0.4) % Absolute Granulocytes (1.4-6.9) Basophils # (0-0.4) Sodium (137-145) mmol/L Potassium (3.5-5.1) mmol/L Chloride (98-107) mmol/L Carbon Dioxide (22-30) mmol/L Anion Gap (5-15) MEQ/L BUN (7-17) mg/dL Creatinine (0.52-1.04) mg/dL Estimated GFR ML/MIN Glucose (74-106) mg/dL Calcium (8.4-10.2) mg/dL Total Bilirubin (0.2-1.3) mg/dL AST (14-36) U/L ALT (0-35) U/L Alkaline Phosphatase (38-126) U/L Troponin I < 0.012 (0.000-0.034) ng/mL Serum Total Protein (6.3-8.2) g/dL Albumin (3.5-5.0) g/dL Thyroxine (T4) 11.7 H (5.53-10.96) ug/dL TSH 3rd Generation 1.000 (0.47-4.68) mIU/L Urine Color (YELLOW) Urine Appearance (CLEAR) Urine pH (5-6) Ur Specific [place] (1.005-1.025) Urine Protein (Negative) Urine Ketones (NEGATIVE) Urine Blood (0-5) Sung/ul Urine Nitrite (NEGATIVE) Urine Bilirubin (NEGATIVE) Urine Urobilinogen (0-1) mg/dL Ur Leukocyte Esterase (NEGATIVE) Urine WBC (Auto) (0-5) /HPF Urine RBC (Auto) (0-2) /HPF U Epithel Cells (Auto) (FEW) /HPF Urine Bacteria (Auto) (NEGATIVE) /HPF Urine Mucus (Auto) (NEGATIVE) /HPF Urine Culture Reflexed (NO) Urine Glucose (NEGATIVE) mg/dL Urine Opiates Level NEGATIVE (NEGATIVE) Ur Methadone NEGATIVE (NEGATIVE) Urine Barbiturates NEGATIVE (NEGATIVE) Ur Phencyclidine (PCP) NEGATIVE (NEGATIVE) Urine Amphetamine POSITIVE (NEGATIVE) U Benzodiazepine Level NEGATIVE (NEGATIVE) Urine Cocaine NEGATIVE (NEGATIVE) Urine Marijuana (THC) NEGATIVE (NEGATIVE) Ethyl Alcohol (0-10) mg/dL 06/26/21 06/26/21 06/26/21 Range/Units 14:43 14:41 14:41 WBC 10.6 H (4.0-10.5) K/mm3 RBC 4.53 (4.1-5.4) M/mm3 Hgb 12.4 (12.0-16.0) gm/dl Hct 39.4 (35-47) % MCV 87.0 (78-100) fl MCH 27.4 (26-32) pg MCHC 31.5 L (32-36) g/dl RDW 14.3 H (11.5-14.0) % Plt Count 318 (150-450) K/mm3 MPV 9.8 (7.5-11.0) fl Gran % 65.3 (36.0-66.0) % Eos # (Auto) 0.13 (0-0.5) Absolute Lymphs (auto) 2.74 (1.0-4.6) Absolute Monos (auto) 0.76 (0.0-1.3) Lymphocytes % 25.8 (24.0-44.0) % Monocytes % 7.2 (0.0-12.0) % Eosinophils % 1.2 (0.00-5.0) % Basophils % 0.5 (0.0-0.4) % Absolute Granulocytes 6.93 H (1.4-6.9) Basophils # 0.05 (0-0.4) Sodium 140 (137-145) mmol/L Potassium 3.6 (3.5-5.1) mmol/L Chloride 102 (98-107) mmol/L Carbon Dioxide 27 (22-30) mmol/L Anion Gap 15.0 (5-15) MEQ/L BUN 13 (7-17) mg/dL Creatinine 0.71 (0.52-1.04) mg/dL Estimated GFR > 60.0 ML/MIN Glucose 92 (74-106) mg/dL Calcium 9.3 (8.4-10.2) mg/dL Total Bilirubin 0.30 (0.2-1.3) mg/dL AST 20 (14-36) U/L ALT 14 (0-35) U/L Alkaline Phosphatase 70 (38-126) U/L Troponin I (0.000-0.034) ng/mL Serum Total Protein 7.4 (6.3-8.2) g/dL Albumin 4.3 (3.5-5.0) g/dL Thyroxine (T4) (5.53-10.96) ug/dL TSH 3rd Generation (0.47-4.68) mIU/L Urine Color YELLOW (YELLOW) Urine Appearance CLEAR (CLEAR) Urine pH 5.0 (5-6) Ur Specific [place] 1.030 (1.005-1.025) Urine Protein 30 (Negative) Urine Ketones NEGATIVE (NEGATIVE) Urine Blood NEGATIVE (0-5) Sung/ul Urine Nitrite NEGATIVE (NEGATIVE) Urine Bilirubin NEGATIVE (NEGATIVE) Urine Urobilinogen NEGATIVE (0-1) mg/dL Ur Leukocyte Esterase TRACE (NEGATIVE) Urine WBC (Auto) 11-15 (0-5) /HPF Urine RBC (Auto) 0-2 (0-2) /HPF U Epithel Cells (Auto) RARE (FEW) /HPF Urine Bacteria (Auto) RARE (NEGATIVE) /HPF Urine Mucus (Auto) SLIGHT (NEGATIVE) /HPF Urine Culture Reflexed YES (NO) Urine Glucose NEGATIVE (NEGATIVE) mg/dL Urine Opiates Level (NEGATIVE) Ur Methadone (NEGATIVE) Urine Barbiturates (NEGATIVE) Ur Phencyclidine (PCP) (NEGATIVE) Urine Amphetamine (NEGATIVE) U Benzodiazepine Level (NEGATIVE) Urine Cocaine (NEGATIVE) Urine Marijuana (THC) (NEGATIVE) Ethyl Alcohol < 10 (0-10) mg/dL - Progress Progress: improved, pain not gone completely, re-examined Progress Note: 06/26/21 16:21 Left shoulder x-ray shows a nondisplaced 6/7 rib fracture of uncertain chronicity. Left elbow x-ray is negative for any acute fracture or dislocation. Right forearm x-ray is negative for any acute fracture or dislocation. CAT scan of the head without contrast is normal. Cervical spine CT without contrast shows degenerative changes. There is no acute fracture/subluxation Counseled pt/family regarding: lab results, diagnosis, need for follow-up, rad results - Departure Departure Disposition: Home Clinical Impression: Syncopal episodes, UTI (urinary tract infection), Left rib fracture Condition: Stable Critical Care Time: No Referrals: EMA MORALES [Primary Care Provider] - Additional Instructions: Drink plenty of fluids. Take your antibiotics as prescribed. Follow-up with Yahaira Morales tomorrow for further management. Prescriptions: Ciprofloxacin [Cipro 500 MG] 500 mg PO BID #14 tablet
[2021-06-26] MEDS ORDERED: Sodium Chloride 0.9% 1000 ML 1,000 ML IV STA (14:23)
[2021-06-26 14:45] LABS: Absolute Neutrophil Ct (ANC) 6.93 (1.4-6.9); BASOPHIL % 0.5 % (0.0-0.4); Basophil (Absolute #) 0.05 (0-0.4); Eosinophil % 1.2 % (0.00-5.0); Eosinophil (Absolute #) 0.13 (0-0.5); Hematocrit 39.4 % (35-47); Hemoglobin 12.4 gm/dl (12.0-16.0); Lymphocyte (Absolute #) 2.74 (1.0-4.6); Lymphocytes % 25.8 % (24.0-44.0); Mean Corpuscular Hemoglobin 27.4 pg (26-32); Mean Corpuscular Hgb Concent. 31.5 g/dl (32-36); Mean Platelet Volume 9.8 fl (7.5-11.0); Monocyte (Absolute #) 0.76 (0.0-1.3); Monocytes % 7.2 % (0.0-12.0); Neutrophil % 65.3 % (36.0-66.0); Platelet Count 318 K/mm3 (150-450); Red Blood Count 4.53 M/mm3 (4.1-5.4); Red Cell Distribution Width 14.3 % (11.5-14.0); White Blood Count 10.6 K/mm3 (4.0-10.5)
[2021-06-26] MEDS ORDERED: Sodium Chloride 0.9% 1000 ML 1,000 ML ONE (14:45)
[2021-06-26 14:59] LABS: ALBUMIN 4.3 g/dL (3.5-5.0); ALKALINE PHOSPHATASE 70 U/L (38-126); BLOOD UREA NITROGEN 13 mg/dL (7-17); CHLORIDE 102 mmol/L (98-107); Calcium 9.3 mg/dL (8.4-10.2); Carbon Dioxide 27 mmol/L (22-30); Creatinine 1 0.71 mg/dL (0.52-1.04); EST GLOMERULAR FILTRATION RATE > 60.0 ML/MIN; ETHYL ALCOHOL < 10 mg/dL (0-10); Glucose 92 mg/dL (74-106); Potassium 3.6 mmol/L (3.5-5.1); SGOT/AST 20 U/L (14-36); SGPT/ALT 14 U/L (0-35); SODIUM 140 mmol/L (137-145); Total Protein 7.4 g/dL (6.3-8.2)
--- NOTE | 2021-06-26 15:09 | XRAY ---
Indication: Left parietal head injury following fall. Multiple contiguous axial images obtained through the head without contrast. Comparison: March 21, 2021. Normal appearing brain parenchyma, ventricles, and bony calvarium. Visualized paranasal sinuses and mastoid air cells are clear. Impression: Continued normal CT head without contrast exam.
--- NOTE | 2021-06-26 15:11 | XRAY ---
Indication: Left parietal head injury following fall. Multiple contiguous axial images obtained through the cervical spine. Sagittal and coronal reformatted images obtained. Comparison: None. Axial images negative for acute fracture, suspicious bony lesions, or spinal canal stenosis. Mild/moderate C3-C7 degenerative endplate spurring and mild/moderate multilevel bilateral degenerative facet hypertrophy. Sagittal and coronal reformatted images demonstrates lordotic straightening, positional versus paraspinal spasm. C5-C7 degenerative disc space narrowing. No acute compression fracture, subluxation, or jumped facet. Normal appearing craniocervical junction. Visualized noncontrasted soft tissues including lung apices are unremarkable. Impression: 1. Cervical lordotic straightening, positional versus paraspinal spasm. 2. Negative acute fracture/subluxation. 3. Multilevel degenerative changes.
[2021-06-26 15:17] LABS: T4 (Thyroxine) 11.7 ug/dL (5.53-10.96)
--- NOTE | 2021-06-26 15:29 | XRAY ---
Indication: Status post fall. Comparison: None 3 view left shoulder demonstrates minimally displaced lateral 6/7 rib fractures of uncertain chronicity. Elsewhere mild AC degenerative arthropathy and multilevel cervical degenerative spondylosis reported separately. No other bony, articular, or soft tissue abnormalities.
[2021-06-26 15:31] VITALS: O2SAT 95
--- NOTE | 2021-06-26 15:31 | XRAY ---
Indication: Status post fall. Comparison: None 2 view right forearm demonstrates base 1st metacarpal postoperative changes with a orthopedic button and tiny heterotopic ossification. No other bony, articular, or soft tissue abnormalities.
--- NOTE | 2021-06-26 15:37 | XRAY ---
Indication: Status post fall. Comparison: None 3 view left elbow demonstrates IV catheter in situ. No other bony, articular, or soft tissue abnormalities.
[2021-06-26 16:28] VITALS: BP 124/69; PULSE 87
[2021-06-26 16:33] LABS: Appearance CLEAR (CLEAR); Bacteria RARE /HPF (NEGATIVE); Bilirubin NEGATIVE (NEGATIVE); Blood NEGATIVE Ery/ul (0-5); Epithelial Cells RARE /HPF (FEW); Glucose NEGATIVE (NEGATIVE); Ketones NEGATIVE (NEGATIVE); Leukocyte Esterase TRACE (NEGATIVE); Mucus SLIGHT /HPF (NEGATIVE); Nitrite NEGATIVE (NEGATIVE); Protein,Urine Dip 30 (Negative); RBC 0-2 /HPF (0-2); Urobilinogen NEGATIVE mg/dL (0-1)
[2021-06-26 16:45] LABS: Amphetamine,Urine POSITIVE (NEGATIVE); Barbiturate,Urine NEGATIVE (NEGATIVE); Benzodiazepine,Urine NEGATIVE (NEGATIVE); Cocaine,Urine NEGATIVE (NEGATIVE); Methadone,Urine NEGATIVE (NEGATIVE); Opiate,Urine NEGATIVE (NEGATIVE); PCP,Urine NEGATIVE (NEGATIVE); THC,Urine NEGATIVE (NEGATIVE)
== END 2021-06-26 17:25 | disposition home or self-care (01) ==
LOC: ED 13:23
DX: R55 Syncope and collapse (principal); N39.0 Urinary tract infection, site not specified; S22.32XA Fracture of one rib, left side, initial encounter for closed fracture; W19.XXXA Unspecified fall, initial encounter; Y93.9 Activity, unspecified; Y92.9 Unspecified place or not applicable; J44.9 Chronic obstructive pulmonary disease, unspecified; E03.9 Hypothyroidism, unspecified; E11.9 Type 2 diabetes mellitus without complications; Z79.899 Other long term (current) drug therapy
CPT/HCPCS: 36000; 36415; 70450; 72125; 73030; 73080; 73090; 80053; 80307; 81001; 84436; 84443; 84484; 85025; 87077; 87086; 87186; 93005; 94760; 99284; G0480

== ENCOUNTER 2021-07-19 06:04 | Day surgery (SDC) | payer OTHER ==
[2021-07-19] MEDS ORDERED: Lactated Ringers 1,000 ML IV SCH (07:00)
[2021-07-19] MEDS ORDERED: CLINDAMYCIN-D5W 900 MG/50 ML*** 900 MG/50 ML BAG IV SCH (07:00)
[2021-07-19] MEDS ORDERED: SUBLIMAZE 100 MCG/2 ML ONE ×2 (07:52→10:38)
[2021-07-19] MEDS ORDERED: DIPRIVAN 200 MG/20 ML IV ONE (07:52)
[2021-07-19] MEDS ORDERED: BUPIVACAINE 0.5% VIAL IJ ONE (07:52)
[2021-07-19] MEDS ORDERED: XYLOCAINE 1% HCL 20 ML MDV ONE (07:53)
[2021-07-19] MEDS ORDERED: Xylocaine-Mpf 2% 5 Ml Vial ONE (07:53)
[2021-07-19] MEDS ORDERED: Zemuron 100 MG/10 ML ONE (07:53)
[2021-07-19] MEDS ORDERED: Zofran 4 MG/2 ML VIAL ONE (07:53)
[2021-07-19] MEDS ORDERED: Decadron 4 MG INJ ONE (08:43)
[2021-07-19] MEDS ORDERED: BRIDION 200MG/2ML IV ONE (09:57)
--- NOTE | 2021-07-19 10:33 | XRAY ---
Indication: Right 1st MTP arthrodesis. Intraoperative fluoroscopy provided for 1 minute 17 seconds. 6 digital spot images submitted for interpretation demonstrates ultimate anterior fixation plate and screws traversing the 1st MTP. Correlate with intraoperative findings/report.
--- NOTE | 2021-07-19 11:55 | OP ---
SURGERY DATE/TIME: 07/19/2021 0828 PREOPERATIVE DIAGNOSIS: Pain right foot and first metatarsophalangeal joint osteoarthritis. POSTOPERATIVE DIAGNOSIS: Pain right foot and first metatarsophalangeal joint osteoarthritis. PROCEDURE: Arthrodesis of first metatarsophalangeal joint right foot. SURGEON: Elias Mcmillan DPM. ADVERTISING SUPERVISOR: None. ANESTHESIA: General plus postoperative local. HEMOSTASIS: Ankle tourniquet set 250 mm of Mercury for 82 total minutes. ESTIMATED BLOOD LOSS: Less than 10 cc. MATERIALS: 4-0 Monocryl, 3-0 Nylon, Luke A.L.P.S. first metatarsophalangeal joint fusion plate with a MAX VPC 3.4 x 34 mm compression screw and variable locking and nonlocking screws. INJECTABLES: 30 cc of a 1:1 mixture of 1% lidocaine plain and 0.5% bupivacaine plain injected in a Olivera block-type fashion postoperatively. INDICATION FOR SURGERY: Kavita is a very pleasant 60-year-old female who presented to my practice for complaint of pain to the first metatarsophalangeal joint. She indicates with range of motion and ambulation there is significant amounts of pain. On x-ray there was no significant indications of osteoarthritis. However, there was a dorsal flag sign indicating that there was rupture with buckling secondary to her hypermobility of the first tarsometatarsal joint. This has exacerbated her symptoms. However, the symptoms were out of proportion in relationship to the degree of the deformity. Therefore, CT was obtained. On inspection of the CT scan, it appeared that there was significant dorsal spurring as well as intra-articular arthritis particularly at the plantar aspect of the metatarsophalangeal joint at the articulation with the sesamoid. Options were discussed with the patient in regards to approach where a cheilectomy was discussed. However, the patient was not guaranteed that this would eliminate her pain. The patient indicated that she would like the pain to go away as it is excruciating and causing her a significant amount of difficulty in achieving her activities of daily living. For that reason, we decided to proceed with a first metatarsophalangeal joint arthrodesis in order to be sure that if the joint was the cause of the pain as it seems to be, that we are able to control this pain. The patient understands all risks, benefits and complications of surgical intervention at this time including but not limited to failure of surgical intervention, delayed union, nonunion, delayed skin healing, nonskin healing, as well as potential for surgical intervention in the future. The patient understands all of these risks and wishes to proceed with surgical intervention at this time. DESCRIPTION OF PROCEDURE AND FINDINGS: After adequate assessment by the perioperative surgical team, the patient was brought into the OR and placed on the OR table in the supine position. At this time general anesthesia was administered and the patient was sedated. The right lower extremity had a well-padded ankle tourniquet applied and the tourniquet to 250 mm of Mercury. At this time the right foot was prepped and draped and lowered onto the surgical field. At this time a time out was called for patient's identifying factors, allergies and the appropriate limb as well as the procedure that was being performed today to which everyone agreed. With that the tourniquet was inflated and the foot was exsanguinated and attention was directed to the first metatarsophalangeal joint where there was a dorsal flap that was prominent on palpation. A 15 blade was utilized to make an incision linear down the dorsal longitudinal cortex of the metatarsal as well as the proximal phalanx. At this time a combination of blunt and sharp dissection was utilized to continue through being careful not to damage any neurovascular structures. The extensor tendon was then identified and retracted laterally up out of the surgical field. At this time 15 blade was utilized to incise the capsule in a lateral L-type incision exposing the joint surface. It was at this time once the metatarsophalangeal joint head was exposed that there was significant osteochondral defect that was identified at the metatarsal head primarily at the central aspect of this region. It was determined that the adequate choice of procedure was made and we proceeded with dissection. A 17 mm McGlamry was utilized to free up the plantar capsule and allow for mobilization of the first metatarsophalangeal joint. At this time a 1.2 mm K-wire was inserted down the central aspect of the metatarsal head following the longitudinal cortex of the metatarsal this was placed centrally and this was checked under fluoroscopy. A 22 mm cup and cone reamer was utilized to denude the cartilage at the metatarsal head as well as the proximal phalangeal base until the subchondral plate was identified and no remaining cartilage. At this time a combination of curettes and rongeurs was utilized to prep the joint surface which was washed with copious amounts of sterile saline in order to evacuate the cartilaginous debris. At this time the K-wire was retrograded down the base of the proximal phalanx in the same procedure was performed on the base of the proximal phalanx. A 2 mm wedge was utilized to fenestrate the first metatarsophalangeal joint as well as the base of the proximal phalanx in order promote vascular ingrowth to the fusion. At this time the first metatarsophalangeal joint A.L.P.S. plate was applied to the dorsal aspect of the joint and a 0.062 mm K-wire was introduced from the medial distal aspect of the first metatarsophalangeal joint and introduced in a medial distal to proximal lateral-type fashion remaining perpendicular to the joint access in order to gain the most stability. This was checked under fluoroscopy and deemed to be in excellent position. Following this the distal aspect of the plate was secured using a combination of nonlocking and locking screws. Once this occurred, eccentric compression nonlocking screw was introduced into the metatarsal side of the plate gaining good compression. The remaining screws were lockers introduced into the metatarsal portion of the plate. Final views were checked under fluoroscopy and deemed to be adequate at this time. The compression screws were alternated at this time in order to get the remaining amount of fixation at the first metatarsophalangeal joint and this was deemed to be excellent at this time. Copious amounts of sterile saline were once again utilized to flush the surgical site. At this time a 4-0 Monocryl was utilized in an [id number]-[id number] type stitch in order to coapt the capsule and the 4-0 Monocryl was then utilized to close the subcutaneous tissue in an interrupted-type fashion. Following this 3-0 Nylon was utilized in horizontal mattress-type fashion in order to irene the skin edges and coapt the surgical site. Tourniquet was dropped prior to the horizontal mattress stitches for a total of 82 minutes of tourniquet time. A postoperative block consisting of 30 cc of a 1:1 mixture of 1% lidocaine plain and 0.5% bupivacaine plain was injected in a Olivera block-type fashion in the right foot. The patient was then reversed from anesthesia. Postoperative dressing consisting of betadine, Adaptic, 4x4, Kerlix to the right lower extremity followed by a fully padded posterior splint. The patient was reversed from anesthesia at this time and returned to the postoperative anesthesia care unit with vital signs stable and vascular status intact. The patient handled the procedure as well as the anesthesia without any complication. The patient will return home with orders as indicated in the patient's postoperative chart.
[2021-07-19 13:00] VITALS: BP 121/75; PULSE 84; O2SAT 92
--- NOTE | 2021-07-19 14:11 | XRAY ---
1 minute and 17 seconds fluoroscopy time in surgery for right 1st metatarsal arthrodesis.
== END 2021-07-19 14:00 | disposition home or self-care (01) ==
LOC: SDC 06:04
PROVIDERS: ATTEND Podiatrist Foot & Ankle Surgery
DX: M19.071 Primary osteoarthritis, right ankle and foot (principal); M79.671 Pain in right foot; E11.9 Type 2 diabetes mellitus without complications; I10 Essential (primary) hypertension; Z79.899 Other long term (current) drug therapy; Z79.4 Long term (current) use of insulin
CPT/HCPCS: 28750; 73630; 76000; 82947; J1100; J2405; J2704; J3010

== ENCOUNTER 2021-10-17 07:03 | Day surgery (SDC) | payer OTHER ==
[2021-10-17] MEDS ORDERED: LIDOCAINE HCL 2% 100 MG/5 ML IJ ONE (07:04)
[2021-10-17] MEDS ORDERED: XYLOCAINE 2%/Epi 1:200000 20ML VIAL MPF ONE (07:55)
[2021-10-17] MEDS ORDERED: Lactated Ringers 1,000 ML IV ONE (08:25)
--- NOTE | 2021-10-17 09:12 | XRAY ---
30 seconds fluoroscopy time in surgery for bilateral L4-S1 MBB.
--- NOTE | 2021-10-17 09:33 | XRAY ---
Indication: Bilateral L4-S1 MBB. Intraoperative fluoroscopy provided for 30 seconds. Single digital spot image submitted for interpretation demonstrates posterior needle tips projecting over the expected left and right L4-S1 nerve roots. Correlate with intraoperative findings/report.
== END 2021-10-17 08:30 | disposition home or self-care (01) ==
LOC: SDC-PAIN 07:03
PROVIDERS: ATTEND Psychiatry & Neurology Pain Medicine
DX: M47.816 Spondylosis without myelopathy or radiculopathy, lumbar region (principal); E11.9 Type 2 diabetes mellitus without complications; Z79.899 Other long term (current) drug therapy
CPT/HCPCS: 64493; 64494; 72020; 77002; 82947

== ENCOUNTER 2022-06-25 11:37 | Emergency (ER) | payer OTHER ==
--- NOTE | 2022-06-25 13:46 | ERPHSYRPT ---
- History of Present Illness Time Seen by Provider: 06/25/22 12:55 Source: patient Exam Limitations: no limitations Patient Subjective Stated Complaint: pt here for bat bite to top of left foot yesterday, bat was in house, they have a infestation of bats in house, bat is n ot cought Triage Nursing Assessment: pt alert, walked in, resp easy, face mask in place, skin w/d/p. no redness for open areas to left foot Physician History: Patient is a [age]-year-old white female who earlier today was bitten by a bat. Apparently there is a bat infestation at their home and this bat came out from under the bed and bit her on the foot. She felt it but there is no obvious bite tejinder. She is here for rabies immunization and she also needs a tetanus. Timing/Duration: yesterday Severity: mild Allergies/Adverse Reactions: armodafinil [From Nuvigil] Allergy (Verified 06/25/22 12:56) azithromycin [From Zithromax] Allergy (Verified 06/25/22 12:56) throat closed-HEART PALPITATIONS cephalexin [From Keflex] Allergy (Verified 06/25/22 12:56) latex Allergy (Verified 06/25/22 12:56) hives during exam metronidazole [From Flagyl] Allergy (Verified 06/25/22 12:56) sob throat closes anaphalactic Metronidazole HCl [From Flagyl] Allergy (Verified 06/25/22 12:56) HEART PALPITATIONS modafinil [From Provigil] Allergy (Verified 06/25/22 12:56) Penicillins Allergy (Verified 06/25/22 12:56) "I DON'T KNOW" ziprasidone HCl [From Geodon] Allergy (Verified 06/25/22 12:56) hallucinate/confusion ziprasidone mesylate [From Geodon] Allergy (Verified 06/25/22 12:56) HEART PALPITATIONS adhesive tape Allergy (Uncoded 06/25/22 12:56) Rash Home Medications: Atorvastatin Calcium 40 mg PO HS 02/17/18 [History] Lisinopril 5 mg [Zestril 5 MG] 2.5 mg PO DAILY 02/17/18 [History] Trazodone HCl [Desyrel] 300 mg PO HS 02/17/18 [History] clonazePAM [Clonazepam] 2 mg PO HS 02/17/18 [History] lamoTRIgine [Lamictal] 300 mg PO HS 02/17/18 [History] Liraglutide [Victoza 2-Jass] 1.8 mg SQ DAILY 04/05/19 [History] Dextroamphetamine/Amphetamine [Dextroamp-Amphet ER 30 mg Cap] 20 mg PO BID 05/25/20 [History] Ezetimibe 10 mg PO DAILY 05/25/20 [History] Levothyroxine Sodium [Synthroid] 125 mcg PO DAILY 05/25/20 [History] Metformin HCl 1,000 mg PO BID 05/25/20 [History] PANTOPRAZOLE 40 mg Tablet [Protonix 40MG Tablet] 40 mg PO DAILY 03/21/21 [History] Albuterol Sulfate [Albuterol Sulfate Hfa] 1 inh PO UD 06/26/21 [History] Aspirin EC 81 mg [Ecotrin 81 mg] 81 mg PO DAILY 06/26/21 [History] Furosemide 20 mg [Lasix 20 mg] 20 mg PO DAILY PRN 06/26/21 [History] Isosorbide Mononitrate 30 mg [Imdur 30 MG] 120 mg PO QAM 06/26/21 [History] Metoprolol Tartrate 50 mg [Lopressor 50 MG] 50 mg PO BID 06/26/21 [History] Hx Tetanus, Diphtheria Vaccination/Date Given: No Hx Influenza Vaccination/Date Given: Yes Hx Pneumococcal Vaccination/Date Given: Yes Immunizations Up to Date: Yes Travel Risk - International Travel Have you traveled outside of the country in past 3 weeks: No - Coronavirus Screening Are you exhibiting any of the following symptoms?: No Close contact with a COVID-19 positive Pt in past 14-21 Days: No - Vaccine Status Have you recieved a Covid-19 vaccination: No - Review of Systems Constitutional: No Fever, No Chills Eyes: No Symptoms Ears, Nose, & Throat: No Symptoms Respiratory: No Cough, No Dyspnea Cardiac: No Chest Pain, No Edema, No Syncope Abdominal/Gastrointestinal: No Abdominal Pain, No Nausea, No Vomiting, No Diarrhea Genitourinary Symptoms: No Dysuria Musculoskeletal: No Back Pain, No Neck Pain Skin: No Rash Neurological: No Dizziness, No Focal Weakness, No Sensory Changes Psychological: No Symptoms Endocrine: No Symptoms All Other Systems: Reviewed and Negative - Past Medical History Pertinent Past Medical History: Yes Neurological History: Migraines ENT History: Cataracts Cardiac History: Congestive Heart Failure, High Cholesterol, Hypertension Respiratory History: Asthma, Bronchitis, COPD, Emphysema, Pneumonia Endocrine Medical History: Diabetes Type II, Hypothyroidism Musculoskeletal History: Arthritis, Fractures GI Medical History: GERD, Hemorrhoids History: No Pertinent History Psycho-Social History: Anxiety, Bipolar, Depression Female Reproductive Disorders: Endometriosis Other Medical History: Hypotension is past. Frequent fractures in LE. small 50- 60% heart blockage,blackout spells, - Past Surgical History Past Surgical History: Yes Neuro Surgical History: No Pertinent History Cardiac: Cardiac Catheterization Respiratory: No Pertinent History Gastrointestinal: Cholecystectomy Genitourinary: No Pertinent History Musculoskeletal: Other Female Surgical History: Section, Hysterectomy Other Surgical History: thyroidectomy. L knee scope. 2 BLADDER SURGERYS left knee replacement,rt hand plat/pins,bilat eye lift,toenail removed,cyst- sebacceous,csection times 3, thyroidectomy,bladder tuck - Social History Smoking Status: Former smoker How long have you smoked: 31 Exposure to second hand smoke: Yes Alcohol Use: Socially Drug Use: none Patient Lives Alone: No Significant Family History: no pertinent family hx - Nursing Vital Signs Nursing Vital Signs: Initial Vital Signs Temperature 97.6 F 06/25/22 12:48 Pulse Rate 72 06/25/22 12:48 Respiratory Rate 18 06/25/22 12:48 Blood Pressure 150/78 06/25/22 12:48 O2 Sat by Pulse Oximetry 94 L 06/25/22 12:48 Pain Scale Pain Intensity 0 - Physical Exam General Appearance: no apparent distress, alert Eye Exam: PERRL/EOMI, eyes nml inspection Ears, Nose, Throat Exam: normal ENT inspection, TMs normal, pharynx normal, moist mucous membranes Neck Exam: normal inspection, non-tender, supple, full range of motion Respiratory Exam: normal breath sounds, lungs clear, No respiratory distress Cardiovascular Exam: regular rate/rhythm, normal heart sounds, normal peripheral pulses Gastrointestinal/Abdomen Exam: soft, normal bowel sounds, No tenderness, No mass Back Exam: normal inspection, normal range of motion, No CVA tenderness, No vertebral tenderness Extremity Exam: normal inspection, normal range of motion, pelvis stable Neurologic Exam: alert, oriented x 3, cooperative, normal mood/affect, nml cerebellar function, nml station & gait, sensation nml, No motor deficits Skin Exam: normal color, warm, dry, No rash Lymphatic Exam: No adenopathy SpO2: 94 - Course Nursing assessment & vital signs reviewed: Yes Ordered Tests: Medication Summary Generic Name Dose Route Start Last Admin Trade Name Freq PRN Reason Stop Dose Admin Rabies Vaccine 2.5 units 06/25/22 14:00 Rabies Vac,Pf Chick-Emb Cell 2.5 Units Kit IM 06/25/22 14:01 .ONCE ONE - Progress Progress: unchanged Progress Note: 06/25/22 13:44 Arrangements made for rabies series. - Departure Departure Disposition: Home Clinical Impression: Bat bite wound Condition: Stable Critical Care Time: No Referrals: EMA MALAVE NP [Primary Care Provider] - Follow up/PCP as directed Instructions: Animal Bites (DC)
[2022-06-25] MEDS ORDERED: Adacel Vial IM ONE ×2 (13:55→13:56)
[2022-06-25] MEDS ORDERED: Rabavert 2.5 UNITS IM ONE (14:00)
[2022-06-25 14:23] VITALS: BP 130/70; PULSE 70; O2SAT 96
== END 2022-06-25 14:23 | disposition home or self-care (01) ==
LOC: ED 11:37
DX: S90.872A Other superficial bite of left foot, initial encounter (principal); W53.81XA Bitten by other rodent, initial encounter; Y92.003 Bedroom of unspecified non-institutional (private) residence as the place of occurrence of the external cause; E78.5 Hyperlipidemia, unspecified; I11.0 Hypertensive heart disease with heart failure; I50.9 Heart failure, unspecified; J43.9 Emphysema, unspecified; E11.9 Type 2 diabetes mellitus without complications; Z79.84 Long term (current) use of oral hypoglycemic drugs; Z79.899 Other long term (current) drug therapy
CPT/HCPCS: 90471; 90675; 90715; 99283

== ENCOUNTER 2023-03-12 18:24 | Emergency (ER) | payer OTHER ==
[2023-03-12 19:25] LABS: Absolute Neutrophil Ct (ANC) 5.36 x10^3/uL (1.4-6.9); BASOPHIL % 0.8 % (0.0-0.4); Basophil (Absolute #) 0.06 x10^3/uL (0-0.4); Eosinophil % 2.1 % (0.00-5.0); Eosinophil (Absolute #) 0.17 x10^3/uL (0-0.5); Hematocrit 34.6 % (35-47); Hemoglobin 10.6 g/dL (12.0-16.0); IMMATURE GRAN # 0.02 x10^3u/L (0.00-0.03); IMMATURE GRAN % 0.3 % (0.00-0.4); Lymphocytes % 23.8 % (24.0-44.0); Mean Cell Volume 79.9 fL (78-100); Mean Corpuscular Hemoglobin 24.5 pg (26-32); Mean Corpuscular Hgb Concent. 30.6 g/dL (32-36); Mean Platelet Volume 9.7 fL (7.5-11.0); Monocyte (Absolute #) 0.48 x10^3/uL (0.0-1.3); Platelet Count 317 x10^3/uL (150-450); Red Blood Count 4.33 x10^6/uL (4.1-5.4)
[2023-03-12 19:34] LABS: ALBUMIN 3.9 g/dL (3.5-5.0); ALKALINE PHOSPHATASE 72 U/L (38-126); ANION GAP 15.5 MEQ/L (5-15); BLOOD UREA NITROGEN 9 mg/dL (7-17); CHLORIDE 101 mmol/L (98-107); Calcium 8.3 mg/dL (8.4-10.2); Carbon Dioxide 27 mmol/L (22-30); Creatinine 1 0.99 mg/dL (0.52-1.04); EST GLOMERULAR FILTRATION RATE > 60.0 ML/MIN; Glucose 97 mg/dL (74-106); LIPASE 43 U/L (23-300); Potassium 3.4 mmol/L (3.5-5.1); SGOT/AST 23 U/L (14-36); SGPT/ALT 17 U/L (0-35); SODIUM 140 mmol/L (137-145); Total Protein 7.1 g/dL (6.3-8.2)
[2023-03-12] MEDS ORDERED: Sodium Chloride 0.9% 1000 ML 1,000 ML IV STA (19:50)
[2023-03-12] MEDS ORDERED: MORPHINE SULFATE 4 MG INJ IV ONE (19:50)
[2023-03-12] MEDS ORDERED: Zofran 4 MG/2 ML VIAL IV ONE (19:50)
[2023-03-12] MEDS ORDERED: Sodium Chloride 0.9% 1000 ML 1,000 ML ONE (20:47)
[2023-03-12] MEDS ORDERED: Zofran 4 MG/2 ML VIAL ONE (20:47)
[2023-03-12] MEDS ORDERED: MORPHINE SULFATE 4 MG INJ ONE (20:47)
--- NOTE | 2023-03-12 21:12 | ERPHSYRPT ---
- History of Present Illness Time Seen by Provider: 03/12/23 18:36 Historian: patient Exam Limitations: no limitations Patient Subjective Stated Complaint: C/O N/V and diarrhea for 4 days Triage Nursing Assessment: Patient ambulated back to ER without difficulties. No SOB. She is alert and oriented. Dry oral mucosa. No abdominal pain. Physician History: 62 years old female with multiple medical problems including chronic diarrhea with off-and-on vomiting presented in the ER with worsening diarrhea and vomiting for the last 4 days with dark much able to hold down, feels weak fatigued tired and dehydrated. Reports because of repeated episodes of vomiting/dry heaving having pain in the back muscles. No fever or chills reported. Does have chronic diarrhea but this seems different than usual. Denies hematochezia or hematemesis. Timing/Duration: day(s) (4), gradual onset, worse Activities at Onset: rest Quality: aching, burning Abdominal Pain Onset Location: other (Back) Severity of Pain-Max: moderate Severity of Pain-Current: moderate Modifying Factors: Worsens With: vomiting Associated Symptoms: back Allergies/Adverse Reactions: armodafinil [From Nuvigil] Allergy (Verified 03/12/23 18:38) azithromycin [From Zithromax] Allergy (Verified 03/12/23 18:38) throat closed-HEART PALPITATIONS cephalexin [From Keflex] Allergy (Verified 03/12/23 18:38) latex Allergy (Verified 03/12/23 18:38) hives during exam metronidazole [From Flagyl] Allergy (Verified 03/12/23 18:38) sob throat closes anaphalactic Metronidazole HCl [From Flagyl] Allergy (Verified 03/12/23 18:38) HEART PALPITATIONS modafinil [From Provigil] Allergy (Verified 03/12/23 18:38) Penicillins Allergy (Verified 03/12/23 18:38) "I DON'T KNOW" ziprasidone HCl [From Geodon] Allergy (Verified 03/12/23 18:38) hallucinate/confusion ziprasidone mesylate [From Geodon] Allergy (Verified 03/12/23 18:38) HEART PALPITATIONS adhesive tape Allergy (Uncoded 03/12/23 18:38) Rash Home Medications: Atorvastatin Calcium 40 mg PO HS 02/17/18 [History] Trazodone HCl [Desyrel] 300 mg PO HS 02/17/18 [History] clonazePAM [Clonazepam] 2 mg PO HS 02/17/18 [History] lamoTRIgine [Lamictal] 300 mg PO HS 02/17/18 [History] Ezetimibe 10 mg PO DAILY 05/25/20 [History] Levothyroxine Sodium [Synthroid] 125 mcg PO DAILY 05/25/20 [History] Metformin HCl 500 mg PO BID 05/25/20 [History] PANTOPRAZOLE 40 mg Tablet [Protonix 40MG Tablet] 40 mg PO DAILY 03/21/21 [History] Albuterol Sulfate [Albuterol Sulfate Hfa] 1 inh PO UD 06/26/21 [History] Aspirin EC 81 mg [Ecotrin 81 mg] 81 mg PO DAILY 06/26/21 [History] Furosemide 20 mg [Lasix 20 mg] 20 mg PO DAILY PRN 06/26/21 [History] Metoprolol Tartrate 50 mg [Lopressor 50 MG] 50 mg PO BID 06/26/21 [History] Semaglutide [Ozempic] 1 mg SQ WEEKLY 01/13/23 [History] Umeclidinium Brm/Vilanterol Tr [Anoro Ellipta 62.5-25 Mcg INH] 1 puff IH DAILY 01/13/23 [History] Hx Tetanus, Diphtheria Vaccination/Date Given: No Hx Influenza Vaccination/Date Given: No Hx Pneumococcal Vaccination/Date Given: No Immunizations Up to Date: No Travel Risk - International Travel Have you traveled outside of the country in past 3 weeks: No - Coronavirus Screening Are you exhibiting any of the following symptoms?: Yes Symptoms: Fever, Vomiting/Diarrhea Close contact with a COVID-19 positive Pt in past 14-21 Days: No - Vaccine Status Have you recieved a Covid-19 vaccination: No - Review of Systems Constitutional: Fatigue, Weakness Eyes: No Symptoms Ears, Nose, & Throat: No Symptoms Respiratory: No Symptoms Cardiac: No Symptoms Abdominal/Gastrointestinal: Abdominal Pain, Nausea, Vomiting, Diarrhea Genitourinary Symptoms: No Symptoms Musculoskeletal: Back Pain Skin: No Symptoms Neurological: No Symptoms Psychological: Anxiety Endocrine: No Symptoms Hematologic/Lymphatic: No Symptoms Immunological/Allergic: No Symptoms - Past Medical History Pertinent Past Medical History: Yes Neurological History: Migraines ENT History: Cataracts Cardiac History: Congestive Heart Failure, High Cholesterol, Hypertension Respiratory History: Asthma, Bronchitis, COPD, Emphysema, Pneumonia Endocrine Medical History: Diabetes Type II, Hypothyroidism Musculoskeletal History: Arthritis, Fractures GI Medical History: GERD, Gallbladder Disease, Hemorrhoids History: No Pertinent History Psycho-Social History: Anxiety, Bipolar, Depression Female Reproductive Disorders: Endometriosis Other Medical History: Hypotension is past. Frequent fractures in LE. small 50- 60% heart blockage,blackout spells, wears oxygen at night - Past Surgical History Past Surgical History: Yes Neuro Surgical History: No Pertinent History Cardiac: Cardiac Catheterization Respiratory: No Pertinent History Gastrointestinal: Cholecystectomy, Exploratory Laparoscopy Genitourinary: No Pertinent History Musculoskeletal: Other Female Surgical History: Section, Hysterectomy Other Surgical History: thyroidectomy. L knee scope. 2 BLADDER SURGERYS left knee replacement,rt hand plat/pins,bilat eye lift,toenail removed,cyst- sebacceous,csection times 3, bladder tuck, right great toe knuckle surgery - Social History Smoking Status: Former smoker How long have you smoked: 31 Exposure to second hand smoke: Yes Alcohol Use: Socially Drug Use: none Patient Lives Alone: No Significant Family History: no pertinent family hx - Nursing Vital Signs Nursing Vital Signs: Initial Vital Signs Temperature 98.4 F 03/12/23 18:39 Pulse Rate 78 03/12/23 18:39 Respiratory Rate 18 03/12/23 18:39 Blood Pressure 145/91 03/12/23 18:39 O2 Sat by Pulse Oximetry 96 03/12/23 18:39 Pain Scale Pain Intensity 4 - Physical Exam General Appearance: no apparent distress, alert Eye Exam: PERRL/EOMI Ears, Nose, Throat Exam: normal ENT inspection, TMs normal, pharynx normal, moist mucous membranes Neck Exam: normal inspection, non-tender, supple, full range of motion Respiratory Exam: normal breath sounds, lungs clear Cardiovascular Exam: regular rate/rhythm, normal heart sounds Gastrointestinal/Abdomen Exam: soft, normal bowel sounds, tenderness (Minimal generalized) Extremity Exam: normal inspection, normal range of motion Neurologic Exam: alert, oriented x 3, cooperative Skin Exam: normal color SpO2 Interpretation: normal SpO2: 96 O2 Delivery: Room Air Ordered Tests: Active Orders 24 hr Category Date Time Status IV Insertion STAT Care 03/12/23 19:50 Active NPO (ED) STAT Care 03/12/23 19:50 Active ABDOMEN AND PELVIS W/0 CONTRAS [CT] Stat Exams 03/12/23 19:50 Taken CBC W DIFF Stat Lab 03/12/23 19:20 Completed CMP Stat Lab 03/12/23 19:20 Completed LIPASE Stat Lab 03/12/23 19:20 Completed UA W/RFX UR CULTURE Stat Lab 03/12/23 21:50 Completed Medication Summary Discontinued Medications Generic Name Dose Route Start Last Admin Trade Name Freq PRN Reason Stop Dose Admin Sodium Chloride 1,000 mls @ 999 mls/hr 03/12/23 19:50 03/12/23 22:13 Sodium Chloride 0.9% 1000 Ml IV 03/12/23 20:50 Infused .Q1H1M STA Infusion Sodium Chloride Confirm 03/12/23 20:47 Sodium Chloride 0.9% 1000 Ml Administered 03/12/23 20:48 Dose 1,000 mls @ ud .ROUTE .STK-MED ONE Morphine Sulfate 4 mg 03/12/23 19:50 03/12/23 20:50 Morphine Sulfate 4 Mg/Ml Injection IV 03/12/23 19:51 4 mg STAT ONE Administration Morphine Sulfate Confirm 03/12/23 20:47 Morphine Sulfate 4 Mg/Ml Injection Administered 03/12/23 20:48 Dose 4 mg .ROUTE .STK-MED ONE Ondansetron HCl 4 mg 03/12/23 19:50 03/12/23 20:48 Ondansetron Hcl 4 Mg/2 Ml Vial IV 03/12/23 19:51 4 mg STAT ONE Administration Ondansetron HCl Confirm 03/12/23 20:47 Ondansetron Hcl 4 Mg/2 Ml Vial Administered 03/12/23 20:48 Dose 4 mg .ROUTE .STK-MED ONE Lab/Rad Data: Laboratory Result Diagrams 03/12/23 19:20 03/12/23 19:20 Laboratory Results 03/12/23 03/12/23 03/12/23 Range/Units 21:51 21:50 19:20 WBC (4.0-10.5) x10^3/uL RBC (4.1-5.4) x10^6/uL Hgb (12.0-16.0) g/dL Hct (35-47) % MCV (78-100) fL MCH (26-32) pg MCHC (32-36) g/dL RDW (11.5-14.0) % Plt Count (150-450) x10^3/uL MPV (7.5-11.0) fL Gran % (36.0-66.0) % Immature Gran % (Auto) (0.00-0.4) % Nucleat RBC Rel Count (0.00-0.1) % Eos # (Auto) (0-0.5) x10^3/uL Immature Gran # (Auto) (0.00-0.03) x10^3u/L Absolute Lymphs (auto) (1.0-4.6) x10^3/uL Absolute Monos (auto) (0.0-1.3) x10^3/uL Absolute Nucleated RBC (0.00-0.01) x10^3u/L Lymphocytes % (24.0-44.0) % Monocytes % (0.0-12.0) % Eosinophils % (0.00-5.0) % Basophils % (0.0-0.4) % Absolute Granulocytes (1.4-6.9) x10^3/uL Basophils # (0-0.4) x10^3/uL Sodium 140 (137-145) mmol/L Potassium 3.4 L (3.5-5.1) mmol/L Chloride 101 (98-107) mmol/L Carbon Dioxide 27 (22-30) mmol/L Anion Gap 15.5 H (5-15) MEQ/L BUN 9 (7-17) mg/dL Creatinine 0.99 (0.52-1.04) mg/dL Estimated GFR > 60.0 ML/MIN Glucose 97 (74-106) mg/dL Calcium 8.3 L (8.4-10.2) mg/dL Total Bilirubin 0.30 (0.2-1.3) mg/dL AST 23 (14-36) U/L ALT 17 (0-35) U/L Alkaline Phosphatase 72 (38-126) U/L Serum Total Protein 7.1 (6.3-8.2) g/dL Albumin 3.9 (3.5-5.0) g/dL Lipase 43 (23-300) U/L Urine Color Dark Yellow A (Yellow) Urine Appearance Clear (Clear) Urine pH 5.0 (4.6-8.0) Ur Specific [place] >=1.030 A (1.005-1.030) Urine Protein 30 (Negative) Urine Glucose (UA) Negative (Negative) mg/dL Urine Ketones Trace A (Negative) Urine Blood Negative (Negative) Urine Nitrite Negative (Negative) Urine Bilirubin Negative (Negative) Urine Urobilinogen 0.2 (0.2) mg/dL Ur Leukocyte Esterase Negative (Negative) U Hyaline Cast (Auto) 0-2 (0-2) /LPF Urine Microscopic RBC 0-2 (0-5) /HPF Urine Microscopic WBC 3-5 (0-5) /HPF Ur Epithelial Cells Moderate A (None Seen) /HPF Urine Bacteria None Seen (None Seen) /HPF Urine Culture Reflexed NO (NO) C. difficile Screen NEGATIVE (NEGATIVE) C.difficile [id number] PRESUMPTIVE NEGATIVE (NEGATIVE) 03/12/23 Range/Units 19:20 WBC 8.0 (4.0-10.5) x10^3/uL RBC 4.33 (4.1-5.4) x10^6/uL Hgb 10.6 L (12.0-16.0) g/dL Hct 34.6 L (35-47) % MCV 79.9 (78-100) fL MCH 24.5 L (26-32) pg MCHC 30.6 L (32-36) g/dL RDW 15.0 H (11.5-14.0) % Plt Count 317 (150-450) x10^3/uL MPV 9.7 (7.5-11.0) fL Gran % 67.0 H (36.0-66.0) % Immature Gran % (Auto) 0.3 (0.00-0.4) % Nucleat RBC Rel Count 0.0 (0.00-0.1) % Eos # (Auto) 0.17 (0-0.5) x10^3/uL Immature Gran # (Auto) 0.02 (0.00-0.03) x10^3u/L Absolute Lymphs (auto) 1.90 (1.0-4.6) x10^3/uL Absolute Monos (auto) 0.48 (0.0-1.3) x10^3/uL Absolute Nucleated RBC 0.00 (0.00-0.01) x10^3u/L Lymphocytes % 23.8 L (24.0-44.0) % Monocytes % 6.0 (0.0-12.0) % Eosinophils % 2.1 (0.00-5.0) % Basophils % 0.8 (0.0-0.4) % Absolute Granulocytes 5.36 (1.4-6.9) x10^3/uL Basophils # 0.06 (0-0.4) x10^3/uL Sodium (137-145) mmol/L Potassium (3.5-5.1) mmol/L Chloride (98-107) mmol/L Carbon Dioxide (22-30) mmol/L Anion Gap (5-15) MEQ/L BUN (7-17) mg/dL Creatinine (0.52-1.04) mg/dL Estimated GFR ML/MIN Glucose (74-106) mg/dL Calcium (8.4-10.2) mg/dL Total Bilirubin (0.2-1.3) mg/dL AST (14-36) U/L ALT (0-35) U/L Alkaline Phosphatase (38-126) U/L Serum Total Protein (6.3-8.2) g/dL Albumin (3.5-5.0) g/dL Lipase (23-300) U/L Urine Color (Yellow) Urine Appearance (Clear) Urine pH (4.6-8.0) Ur Specific [place] (1.005-1.030) Urine Protein (Negative) Urine Glucose (UA) (Negative) mg/dL Urine Ketones (Negative) Urine Blood (Negative) Urine Nitrite (Negative) Urine Bilirubin (Negative) Urine Urobilinogen (0.2) mg/dL Ur Leukocyte Esterase (Negative) U Hyaline Cast (Auto) (0-2) /LPF Urine Microscopic RBC (0-5) /HPF Urine Microscopic WBC (0-5) /HPF Ur Epithelial Cells (None Seen) /HPF Urine Bacteria (None Seen) /HPF Urine Culture Reflexed (NO) C. difficile Screen (NEGATIVE) C.difficile [id number] (NEGATIVE) - Progress Progress: improved, re-examined Progress Note: 03/12/23 22:38 62 years old female with multiple medical problems including chronic diarrhea is evaluated for lately worsening symptoms of vomiting and diarrhea for last 4 days. Patient is given Zofran and symptomatic treatment along with morphine and fluids, on reevaluation she is feeling much better. She has normal white count, fairly unremarkable chemistries. No UTI. She does not have C. difficile and CT abdomen pelvis per preliminary report is negative for any acute findings. Patient did not vomit while in the ER. I believe patient is having viral etiology symptoms, or recommended supportive care with increase hydration, Zofran and Tylenol as needed. Discussed signs symptoms of worsening needing return to ER which she seems understanding. Stable for discharge. Counseled pt/family regarding: lab results, diagnosis, need for follow-up, rad results Medical Desision Making - Independent Historian Additional History obtained from: Spouse - Discussion of managment Reviewed:: Test results, Need for additional workup Agreed on:: Treatment plan, need for follow-up - Diagnostic Testing Diagnostic test were ordered, analyzed, and reviewed by me: Yes Radiological Interpretation: Reviewed by me, Teleradiologist Report - Risk of complications The pt has a mod risk of morbidity or mortality based on: Need for prescription drug management - Departure Departure Disposition: Home Clinical Impression: Gastroenteritis Condition: Stable Critical Care Time: No Referrals: EMA MALAVE NP [Primary Care Provider] - Follow up/PCP as directed (1-2 days for reevaluation) Instructions: Viral Gastroenteritis in Adults Additional Instructions: Drink plenty of fluids to keep yourself well-hydrated. Take Tylenol/Zofran as needed. Follow-up with your primary care for reevaluation. Return to ER for any worsening. Prescriptions: Ondansetron ODT 4 MG [Zofran Odt 4 mg] 1 ea PO QIDPRN PRN #7 tablet PRN Reason: n/v
[2023-03-12 22:09] LABS: Appearance Clear (Clear); Bacteria None Seen /HPF (None Seen); Bilirubin Negative (Negative); Blood Negative (Negative); Epithelial Cells Moderate /HPF (None Seen); Glucose, Urine Negative (Negative); Ketones Trace (Negative); Leukocyte Esterase Negative (Negative); Nitrite Negative (Negative); Protein,Urine Dip 30 (Negative); RBC 0-2 /HPF (0-5); Specific Gravity >=1.030 (1.005-1.030); Urobilinogen 0.2 mg/dL (0.2)
[2023-03-12 22:10] LABS: Hyaline Casts 0-2 /LPF (0-2)
[2023-03-12 22:11] LABS: ADD URINE CULTURE? NO (NO)
[2023-03-12 22:16] VITALS: BP 129/78; PULSE 74
[2023-03-12 22:36] LABS: 027 TOX PROD PRESUMPTIVE NEGATIVE (NEGATIVE); TOXIGENIC C. DIFF ORG NEGATIVE (NEGATIVE)
[2023-03-12 22:43] VITALS: O2SAT 96
[2023-03-12] MEDS ORDERED: NORCO 5/325 MG PO ONE (22:46)
[2023-03-12] MEDS ORDERED: NORCO 5/325 MG ONE (22:50)
--- NOTE | 2023-03-13 08:33 | XRAY ---
Indication: Nausea, vomiting, diarrhea, abdomen tenderness, and back pain. Multiple contiguous axial images obtained through the abdomen and pelvis without contrast. Comparison: April 29, 2019 Lung bases clear of infiltrate and effusion. Heart not enlarged. Stable distal paraesophageal calcified nodes. Noncontrasted stomach and bowel loops nonobstructed with normal appendix. Again minimal sigmoid diverticulosis, fatty liver, cholecystectomy, and hysterectomy. No free fluid/air. Remaining liver, pancreas, spleen, adrenal glands, kidneys, ureters, and bladder are unremarkable for noncontrast exam. Again minimal aortoiliac calcifications without AAA. Osseous structures intact again with mild degenerative throughout the spine. Impression: 1. Again sigmoid diverticulosis, fatty liver, chronic bony findings, arteriosclerotic disease, and old granulomatous disease. 2. Remaining CT abdomen/pelvis without contrast exam continues to be negative.
== END 2023-03-12 23:04 | disposition home or self-care (01) ==
LOC: ED 18:24
DX: K52.9 Noninfective gastroenteritis and colitis, unspecified (principal); I11.0 Hypertensive heart disease with heart failure; I50.9 Heart failure, unspecified; E11.9 Type 2 diabetes mellitus without complications; E78.5 Hyperlipidemia, unspecified; Z79.899 Other long term (current) drug therapy; Z20.828 Contact with and (suspected) exposure to other viral communicable diseases
CPT/HCPCS: 36000; 36415; 74176; 80053; 81001; 83690; 85025; 87493; 96360; 96374; 96375; 99284; J2270; J2405; A9270-GY

== ENCOUNTER 2024-04-13 05:52 | Day surgery (SDC) | payer OTHER ==
[2024-04-13] MEDS: Lactated Ringers 1,000 ML IV SCH (06:09)
[2024-04-13] MEDS: CLINDAMYCIN-D5W 900 MG/50 ML*** 900 MG/50 ML BAG IV ONE (06:09)
[2024-04-13 06:24] VITALS: RESP 16
[2024-04-13] MEDS ORDERED: DIPRIVAN 200 MG/20 ML IV ONE (07:55)
[2024-04-13] MEDS ORDERED: SUBLIMAZE 100 MCG/2 ML ONE ×2 (07:57→09:51)
[2024-04-13] MEDS ORDERED: Xylocaine-Mpf 2% 5 Ml Vial ONE (07:58)
[2024-04-13] MEDS ORDERED: Quelicin Fliptop 200 MG/10 ML ONE (08:00)
[2024-04-13] MEDS ORDERED: Zofran 4 MG/2 ML VIAL ONE (08:03)
[2024-04-13] MEDS ORDERED: Decadron 4 MG INJ ONE (08:03)
[2024-04-13] MEDS ORDERED: Marcaine 0.5%/Epinephrine 10 ML ONE (08:04)
[2024-04-13] MEDS ORDERED: OFIRMEV 100 ML IV ONE (08:09)
[2024-04-13] MEDS ORDERED: Pre-Attached Lta Kit TP ONE (08:09)
[2024-04-13] MEDS ORDERED: Ephedrine Sulfate 50 MG/ML ONE (08:31)
[2024-04-13] MEDS ORDERED: TORAdol 30 mg Injection ONE (08:51)
[2024-04-13] MEDS ORDERED: Lactated Ringers 1,000 ML IV ONE (09:00)
[2024-04-13 11:05] VITALS: BP 104/67; PULSE 74; TEMP 97; O2SAT 93
--- NOTE | 2024-04-13 11:48 | OP ---
SURGERY DATE/TIME: 04/13/2024 0803 PREOPERATIVE DIAGNOSES: 1) Torn right medial meniscus. 2) Chondromalacia of the patella. POSTOPERATIVE DIAGNOSES: 1) Torn right medial and lateral menisci. 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 PROCEDURE: Arthroscopy right knee with partial medial meniscectomy, partial lateral meniscectomy and chondroplasty of the patella and trochlear groove. SURGEON: Willy Garcia II, D.O. ANESTHESIA: General. DESCRIPTION OF PROCEDURE: The patient was identified and informed consent was obtained. The patient was then taken to the operative suite where she was placed into the supine positon on the operating table where general anesthetic was administered. Once an appropriate level of anesthesia had been obtained, a tourniquet was placed high on the right thigh and the right lower extremity was then placed into a knee celestin. The right lower extremity was then prepped and draped in the usual sterile fashion. A standard time out was taken. The leg was exsanguinated and the tourniquet elevated to 350 mm of Mercury. A standard superior medial portal was created with an 11 blade and the trocar and camera were then placed into the joint. The joint was then distended with the arthroscopic pump and an infralateral portal was created with an 11 blade. The arthroscope was then placed in through cannula. An 18 gauge spinal needle identified the level through the inframedial portal which was also created with an 11 blade. The knee was now inspected in systematic fashion beginning in the suprapatellar pouch where there were no loose bodies or significant synovial hypertrophy. The under surface of the patella and trochlear groove had grades II and III chondromalacia especially noted along the medial facet. The shaver was utilized to perform chondroplasty of the patella and trochlear groove. Gutters were inspected and no loose bodies or synovial hypertrophy. The scope was placed in the medial compartment where tear involving the middle and posterior horns of the medial meniscus was encountered and this was resected with a handheld biting instruments and shaved to a smooth transition with shaver. Femoral condyle and tibial plateau had only minimal chondromalacia changes. Intercondylar notch region inspected and the anterior cruciate ligament was noted to be intact. There is no evidence of attenuation or laxity. The scope was placed in the lateral compartment where a tear is noted in the middle portion of the lateral meniscus along the articular surface and resected with handheld biting instrument and shaved to a smooth transition with a shaver. The knee was then re-inspected and copiously irrigated. No further pathology was identified. The instrumentation was removed and the portal sites were closed with interrupted 4-0 Nylon suture. The knee was infiltrated with 30 cc of 0.25% Marcaine with epinephrine. Adaptic, 4x4 and a standard postoperative arthroscopy dressing applied. The patient was then transferred to the cart and taken to the recovery room in satisfactory condition having tolerated the procedure well.
== END 2024-04-13 11:19 | disposition home or self-care (01) ==
LOC: SDC 05:52
PROVIDERS: ATTEND Orthopaedic Surgery
DX: S83.241A Other tear of medial meniscus, current injury, right knee, initial encounter (principal); M22.41 Chondromalacia patellae, right knee; I10 Essential (primary) hypertension
CPT/HCPCS: 29880; 82947; 93005; J0330; J1100; J1885; J2405; J2704; J3010